=== PATIENT | female | born 1995 | race Caucasian/White ===

== ENCOUNTER 2016-11-14 20:04 | Emergency (ER) | payer BC ==
[2016-11-14] MEDS ORDERED: Aspirin Low Dose CHEW TAB* 81 MG PO ONE (20:51)
--- NOTE | 2016-11-14 21:04 | ED ---
HPI Chest Pain - HPI Summary HPI Summary: Patient is sent to ED by her PCP after CC of epigastric chest pain radiating to the back 3 days ago. PCP checked a trop level which patient stated was "elevated." PCP advised her to come to ED for further workup. Patient denies any chest pain or pressure now. Noted some previous SOB but stated she has had a cold. Denies weakness, chills, sweats or other discomfort. She denies other symptoms. Patient denies any cardiac history and only takes suboxone for previous opioid abuse. Patient is a smoker, but denies connective tissue disease. To her knowledge, has never had an echo. No-one in her family has at an early age for any reason. - History of Current Complaint Chief Complaint: EDChestPainROMI Time Seen by Provider: 11/14/16 20:50 Hx Obtained From: Patient Onset/Duration: Started Days Ago - 3 Timing: Intermittent, Lasting Minutes Initial Severity: Moderate Current Severity: None Pain Intensity: 0 Pain Scale Used: 0-10 Numeric Chest Pain Radiates: Yes Chest Pain Radiates To:: Back Character: Burning, Crushing Aggravating Factor(s): Nothing Alleviating Factor(s): Nothing Associated Signs and Symptoms: Positive: Chest Pain, Shortness of Breath, Cough - Risk Factors TAD Risk Factors: Negative - Allergy/Home Medications Allergies/Adverse Reactions: Allergies Allergy/AdvReac Type Severity Reaction Status Date / Time Acetaminophen Allergy See Comment Verified 03/08/15 12:14 [From Tylenol with Codeine #3] Clonidine Allergy Hives Verified 01/10/16 09:49 Codeine Allergy See Comment Verified 03/08/15 12:14 [From Tylenol with Codeine #3] PMH/Surg Hx/FS Hx/Imm Hx Previously Healthy: Yes Endocrine/Hematology History: Denies: Hx Diabetes, Hx Thyroid Disease Cardiovascular History: Denies: Hx Hypertension Respiratory History: Reports: Hx Asthma Denies: Hx Chronic Obstructive Pulmonary Disease (COPD) GI History: Denies: Hx Ulcer Psychiatric History: Reports: Hx Anxiety - panic attacks - Surgical History Surgery Procedure, Year, and Place: Tonsillectomy 2009 Infectious Disease History: No Infectious Disease History: Reports: Hx Shingles Denies: Hx Hepatitis, Hx Human Immunodeficiency Virus (HIV), Traveled Outside the [place] in Last 30 Days - Social History Occupation: Unemployed Lives: With Family Alcohol Use: None Substance Use Type: Reports: None, Other Substance Use Comment - Amount & Last Used: former narcotic abuser Hx Tobacco Use: Yes Smoking Status (MU): Light Every Day Tobacco Smoker Type: Cigarettes Amount Used/How Often: 1-2 daily Length of Time of Smoking/Using Tobacco: years Have You Smoked in the Last Year: Yes Review of Systems Constitutional: Negative Eyes: Negative Positive: Chest Pain - previous Positive: Shortness Of Breath - previous Gastrointestinal: Negative Positive: no symptoms reported, see HPI Musculoskeletal: Negative Neurological: Negative Psychological: Normal All Other Systems Reviewed And Are Negative: Yes Physical Exam Triage Information Reviewed: Yes Vital Signs On Initial Exam: Initial Vitals Temp Pulse Resp BP Pulse Ox 98.6 F 101 16 114/72 100 11/14/16 20:19 11/14/16 20:19 11/14/16 20:19 11/14/16 20:19 11/14/16 20:19 Vital Signs Reviewed: Yes Appearance: Positive: Well-Appearing, Well-Nourished Skin: Positive: Warm, Skin Color Reflects Adequate Perfusion Eyes: Positive: Normal Neck: Positive: Supple, No Lymphadenopathy Respiratory/Lung Sounds: Positive: Clear to Auscultation, Breath Sounds Present Cardiovascular: Positive: Normal, RRR, Pulses are Symmetrical in both Upper and Lower Extremities Abdomen Description: Positive: Nontender, No Organomegaly Musculoskeletal: Positive: Normal, Strength/ROM Intact Neurological: Positive: Normal, Sensory/Motor Intact, Speech Normal Psychiatric: Positive: Normal Diagnostics - Vital Signs Vital Signs Temp Pulse Resp BP Pulse Ox 11/14/16 20:19 98.6 F 101 16 114/72 100 - Laboratory Result Diagrams: 11/14/16 21:00 11/14/16 21:00 Lab Statement: Any lab studies that have been ordered have been reviewed, and results considered in the medical decision making process. Chest Pain Course/Dx - Course Course Of Treatment: Patient labs WNL except for Trop 0.04. Patient made aware of results. Signed out AMA. Prefers to follow up with PCP d/t feeling OK. - Chest Pain Differential Diagnosis/HQI/PQRI: ACS, Chest Wall, Pulmonary Embolism - Diagnoses Provider Diagnoses: Elevated troponin Discharge - Discharge Plan Condition: Fair Disposition: AGAINST MEDICAL ADVICE Referrals: Hawk Benitez MD [Primary Care Provider] -
[2016-11-14 21:18] LABS: Hematocrit 35 % (35-47); Hemoglobin 12.2 g/dl (12.0-16.0); Mean Corpuscular HGB Conc 34 g/dl (31-36); Mean Corpuscular Hemoglobin 31 pg (27-31); Mean Corpuscular Volume 89 fL (80-97); Mean Platelet Volume 9 um3 (7.4-10.4); Red Blood Count 3.96 10^6/ul (4.0-5.4); Red Cell Distribution Width 13 % (10.5-15)
[2016-11-14 21:36] LABS: Albumin 4.3 g/dL (3.2-5.2); Calcium 9.6 mg/dL (8.6-10.3); EGFR African American 133.4 (>60); EGFR Non-African American 103.7 (>60); Potassium 3.6 mmol/L (3.5-5.0); Total Bilirubin 0.3 mg/dL (0.2-1.0); Total Protein 7.3 g/dL (6.4-8.9)
[2016-11-14 21:39] LABS: Troponin I 0.04 ng/mL (<0.04)
[2016-11-14 21:57] LABS: TSH (Thyroid Stimulating Horm) 0.72 mcIU/mL (0.34-5.60)
[2016-11-14 22:50] VITALS: BP 120/64
== END 2016-11-14 22:50 | disposition left against medical advice (07) ==
LOC: ED 20:04
DX: R79.89 Other specified abnormal findings of blood chemistry (principal); R07.9 Chest pain, unspecified; R06.02 Shortness of breath; R05 Cough; F17.210 Nicotine dependence, cigarettes, uncomplicated
CPT/HCPCS: 36415; 80053; 82550; 82553; 83605; 83735; 83874; 83880; 84443; 84484; 85025; 85610; 85730; 93005; 99285

== ENCOUNTER 2018-04-25 19:01 | Emergency (ER) | payer BC, MEDICAID ==
[2018-04-25 19:10] VITALS: BP 126/79
[2018-04-25] MEDS ORDERED: Albuterol/Ipratropium NEB.SOL* Albuterol 2.5 MG/Ipratropium 0.5 MG 3 ML INH ONE (19:22)
[2018-04-25] MEDS ORDERED: Al Hydrox/Mg Hydrox/Simet LIQ* 30 ML UDC PO ONE (19:51)
[2018-04-25] MEDS ORDERED: Lidocaine 2% VISCOUS* 15 ML UDC SWISH SPIT ONE (19:51)
--- NOTE | 2018-04-25 20:23 | UC ---
Respiratory Complaint HPI - HPI Summary HPI Summary: Chest heaviness and subjective SOB began last night--- - History of Current Complaint Chief Complaint: UCRespiratory Stated Complaint: TROUBLE BREATHING Time Seen by Provider: 04/25/18 19:15 Hx Obtained From: Patient Hx Last Menstrual Period: IUD ?: No Onset/Duration: Sudden Onset, Lasting Days - 1, Still Present Timing: Constant Pain Intensity: 0 Alleviating Factors: Nothing Associated Signs And Symptoms: Positive: Pleuritic Chest Pain - Allergies/Home Medications Allergies/Adverse Reactions: Allergies Allergy/AdvReac Type Severity Reaction Status Date / Time acetaminophen Allergy Pain Verified 04/25/18 21:35 [From Tylenol-Codeine #3] codeine Allergy Pain Verified 04/25/18 21:35 sertraline [From Zoloft] Allergy Hives Verified 04/25/18 21:35 PMH/Surg Hx/FS Hx/Imm Hx Previously Healthy: No - opiate addiction in remission - Surgical History Surgical History: None Surgery Procedure, Year, and Place: Tonsillectomy 2008 - Family History Known Family History: Positive: None - Social History Occupation: Employed Full-time Lives: With Family Alcohol Use: None Substance Use Type: None Substance Use Comment - Amount & Last Used: former narcotic abuser Smoking Status (MU): Light Every Day Tobacco Smoker Type: Cigarettes Amount Used/How Often: 1-2 daily Length of Time of Smoking/Using Tobacco: years Have You Smoked in the Last Year: Yes Household Exposure Type: Cigarettes Cessation Counseling: Patient Advised to Stop - Immunization History Most Recent Influenza Vaccination: unknown Most Recent Tetanus Shot: 02/25/14 Most Recent Pneumonia Vaccination: none Review of Systems Constitutional: Negative Skin: Negative Eyes: Negative ENT: Negative Respiratory: Shortness Of Breath Cardiovascular: Negative, Other - chest heaviness in her lungs Gastrointestinal: Negative Genitourinary: Negative Motor: Negative Neurovascular: Negative Musculoskeletal: Negative Neurological: Negative Psychological: Negative Is Patient Immunocompromised?: No All Other Systems Reviewed And Are Negative: Yes Physical Exam Triage Information Reviewed: Yes Appearance: Well-Appearing, No Pain Distress, Well-Nourished Vital Signs: Initial Vital Signs Temp 98.8 F 04/25/18 19:07 Pulse 92 04/25/18 19:07 Resp 18 04/25/18 19:07 BP 126/79 04/25/18 19:07 Pulse Ox 100 04/25/18 19:07 Vital Signs Reviewed: Yes Eye Exam: Normal Eyes: Positive: Conjunctiva Clear ENT Exam: Normal ENT: Positive: Normal ENT inspection, Hearing grossly normal, Pharynx normal, TMs normal. Negative: Nasal congestion, Trismus, Muffled voice, Hoarse voice Dental Exam: Normal Neck exam: Normal Neck: Positive: Supple, Nontender, No Lymphadenopathy Respiratory Exam: Normal Respiratory: Positive: Chest non-tender, Lungs clear, Normal breath sounds, No respiratory distress, No accessory muscle use Cardiovascular Exam: Normal Cardiovascular: Positive: RRR, No Murmur, Pulses Normal, Brisk Capillary Refill Musculoskeletal Exam: Normal Musculoskeletal: Positive: Strength Intact, ROM Intact, No Edema Neurological Exam: Normal Neurological: Positive: Alert, Muscle Tone Normal Psychological Exam: Normal Skin Exam: Normal UC Diagnostic Evaluation - Laboratory O2 Sat by Pulse Oximetry: 100 Re-Evaluation - Re-Evaluation First Eval Change: Unchanged - no relief with neb or gi cocktail Respiratory Course/Dx - Course Course Of Treatment: d/c patient from urgent care to go to hospital at [facility] for further assessment of SOB - Differential Dx/Diagnosis Provider Diagnoses: SOB Discharge - Sign-Out/Discharge Documenting (check all that apply): Patient Departure All imaging exams completed and their final reports reviewed: No Studies - Discharge Plan Condition: Fair Disposition: HOME-RECOMMEND TO ED Patient Education Materials: Shortness of Breath (ED) Referrals: Hawk Benitez MD [Primary Care Provider] - Additional Instructions: We are discharging you from the urgent care to go to the emergency department for further care - Billing Disposition and Condition Condition: FAIR Disposition: Home-Recommend to ED
== END 2018-04-25 20:38 | disposition home health service (06) ==
LOC: UCEAST 19:01
DX: R06.02 Shortness of breath (principal); Z88.6 Allergy status to analgesic agent; Z88.5 Allergy status to narcotic agent; Z88.8 Allergy status to other drugs, medicaments and biological substances; F17.210 Nicotine dependence, cigarettes, uncomplicated
CPT/HCPCS: 99212; A9270-GY; G0463

== ENCOUNTER 2018-04-25 21:16 | Emergency (ER) | payer BC ==
[2018-04-25 21:35] VITALS: BP 126/84
== END 2018-04-25 23:48 | disposition left against medical advice (07) ==
LOC: ED 21:16
DX: R06.02 Shortness of breath (principal); Z53.21 Procedure and treatment not carried out due to patient leaving prior to being seen by health care provider
CPT/HCPCS: 99282

== ENCOUNTER 2018-07-17 11:13 | Emergency (ER) | payer BC ==
--- NOTE | 2018-07-17 11:16 | UC ---
Throat Pain/Nasal Gallo HPI - HPI Summary HPI Summary: 23 yo female presents with sore throat for the last 4 days. She tells me that it hurts to swallow and feels like it did when she used to have strep. She has not taken anything OTC for her symptoms. Denies fever, chills, cough, SOB, n/v, or rash. - History of Current Complaint Stated Complaint: SORE THROAT Time Seen by Provider: 07/17/18 11:15 Hx Obtained From: Patient Hx Last Menstrual Period: IUD Onset/Duration: Gradual Onset Severity: Mild Pain Intensity: 4 Pain Scale Used: 0-10 Numeric - Allergies/Home Medications Allergies/Adverse Reactions: Allergies Allergy/AdvReac Type Severity Reaction Status Date / Time codeine Allergy Pain Verified 07/17/18 11:19 sertraline [From Zoloft] Allergy Hives Verified 04/25/18 21:35 Home Medications: Home Medications Gabapentin CAP(*) [Neurontin 300 CAP(*)] 600 mg PO DAILY 07/17/18 [History Confirmed 07/17/18] cloNIDine HCl [Clonidine HCl ER 0.1 MG] 0.1 mg PO BID 07/17/18 [History Confirmed 07/17/18] PMH/Surg Hx/FS Hx/Imm Hx Psychological History: Anxiety, Depression, Bipolar Disorder - Surgical History Surgical History: None Surgery Procedure, Year, and Place: Tonsillectomy 2008 - Family History Known Family History: Positive: None - Social History Occupation: Employed Full-time Lives: With Family Alcohol Use: None Substance Use Type: None Substance Use Comment - Amount & Last Used: former narcotic abuser Smoking Status (MU): Light Every Day Tobacco Smoker Type: Cigarettes Amount Used/How Often: 1-2 daily Length of Time of Smoking/Using Tobacco: years Have You Smoked in the Last Year: Yes Household Exposure Type: Cigarettes - Immunization History Most Recent Influenza Vaccination: unknown Most Recent Tetanus Shot: 02/25/14 Most Recent Pneumonia Vaccination: none Review of Systems All Other Systems Reviewed And Are Negative: Yes Constitutional: Positive: Negative Skin: Positive: Negative Eyes: Positive: Negative ENT: Positive: Sore Throat Respiratory: Positive: Negative Cardiovascular: Positive: Negative Neurovascular: Positive: Negative Neurological: Positive: Negative Psychological: Positive: Negative Physical Exam - Summary Physical Exam Summary: GENERAL: NAD. WDWN. No pain distress. SKIN: No rashes, sores, lesions, or open wounds. HEENT: Head: AT/NC Eyes: EOM intact. Conjunctiva clear without inflammation or discharge. Ears: Hearing grossly normal. TMs intact, no bulging, erythema, or edema. Nose: Nasal mucosa pink and moist. NTTP maxillary and frontal sinus. Throat: Posterior oropharynx without exudates or erythema. Uvula midline. NECK: Supple. Nontender. No lymphadenopathy. CHEST: CTAB. No r/r/w. No accessory muscle use. Breathing comfortably and in no distress. CV: RRR. Without m/r/g. Pulses intact. Cap refill <2seconds NEURO: Alert. PSYCH: Age appropriate behavior. Triage Information Reviewed: Yes Vital Signs: Vital Signs: Temp Pulse Resp BP Pulse Ox 97.9 F 90 16 110/67 100 07/17/18 11:20 07/17/18 11:20 07/17/18 11:20 07/17/18 11:20 07/17/18 11:20 Laboratory Tests 07/17/18 11:31 Group A Strep Rapid Negative Vital Signs Reviewed: Yes Throat Pain/Nasal Course/Dx - Course Course Of Treatment: POC strep negative. Suspect viral pharyngitis. Advised to take tylenol/ibuprofen for discomfort and f/u prn. - Differential Dx/Diagnosis Provider Diagnoses: Viral pharyngitis Discharge - Sign-Out/Discharge Documenting (check all that apply): Patient Departure All imaging exams completed and their final reports reviewed: No Studies - Discharge Plan Condition: Stable Disposition: HOME Patient Education Materials: Pharyngitis (ED) Referrals: Hawk Benitez MD [Primary Care Provider] - Additional Instructions: If you develop a fever, shortness of breath, chest pain, new or worsening symptoms - please call your PCP or go to the ED. - Billing Disposition and Condition Condition: STABLE Disposition: Home
--- OUTSIDE RECORDS SUMMARY | 2018-07-17 11:18 | XMS REPORT ---
:1995 External Reference #:[id number] Author Organization [facility] Address [address] [place] [address] Phone [phone] Care Team Providers Name Role Phone Hawk Benitez MD Primary Care Physician Unavailable Payers Type Date Identification Numbers Payment Provider Subscriber Commercial Policy Number: [id number] [employer]ets Kun Fink PayID: [id number] [address] [address] [place] [address] Medigap Part B Expires: 2018 Policy Number: [id number] Medicaid Marie Alonso PayID: [id number] [address] [place] [address] Medigap Part B Expires: 2018 Policy Number: [id number] Medicaid Marie Alonso Group Name: 1 1 [address] PayID: [id number] [place] [address] Problems Date Description Provider Status Onset: 09/02/2016 Opioid abuse Sherie Ray M.D.FACP Onset: 11/14/2016 Light cigarette smoker (1-9 Hawk Benitez, Active cigs/day) BETHANY CoughlinP Onset: 01/27/2017 Bipolar I disorder Sherie Ray M.D., FACP Onset: 09/02/2016 Anxiety disorder Hawk Benitez, Inactive BETHANY CoughlinP Inactive: 01/27/2017 Note: bipolar suspect Onset: 10/13/2016 Hyperthyroidism Hawk Benitez M.D.,FACP Resolved Resolved: 11/16/2016 Note: suspect Family History Date Family Member(s) Problem(s) Comments : (1995) Father due to Drug Overdose Mother No Current Problems Siblings 1 First Brother premature, growth hormone def Social History Type Date Description Comments Marital Status Significant Other Lives With Boyfriend Occupation Currently Working at [employer] Cigarette Use Light tobacco smoker (10 or fewer cigarettes/day) ETOH Use 01/10/2018 Denies alcohol use Recreational Drug Use Former Drug User (+) hx heroin use; last use Jan 13 2017 Smoking Light tobacco smoker (10 or since age 12, 4-5 fewer cigarettes/day) cig/day Exercise Type/Frequency Does not exercise General Hx Text 2 children, not full custody Allergies, Adverse Reactions, Alerts Date Description Reaction Status Severity Comments 08/23/2016 Zoloft active burning and itching head to toe 08/23/2016 Codeine active chest pain Medications Medication Date Status Form Strength Qnty SIG Indications Ordering Provider Nicotrol 04/27/ Active Inhaler 10mg 168un 1 cartridges Hawk 2017 its every 2 hours Yolette Benitez, as needed M.D.,FACP Bupropion HCL 03/22/ Active Tablets ER 150mg 60tab 1 by mouth Katelyn Canseco ER (SR) 2018 12HR s once a day Yolette Benitez, for 10 days M.D.,FACP then 1 in Am and 1 in early afternoon Mirena (52 MG) 05/25/ Active IUD 20mcg/24H placed at [facility] Hawk 2016 R 11/2014? Yolette Benitez M.D.,FACP Suboxone 05/09/ Active Film 12-3mg 28uni Take 1/2 Film F11.19 Hawk 2016 ts Sublingually Yolette Benitez, Twice A Day M.D.,FACP Gabapentin 11/14/ Active Tablets 600mg 30tab take 1 tablet Hawk 2016 s by mouth at Yolette Benitez, bedtime M.D.,FACP Clonidine HCL 09/02/ Active Tablets 0.1mg 60tab take 1 tablet Katelyn Canseco 2015 s by mouth Yolette Benitez, twice a day M.D.,FACP Azithromycin 03/22/ Hx Tablets 250mg 6tabs 2 every day Hawk 2018 - for 1 day, Yolette Benitez, 03/27/ then 1 every M.D.,FACP 2018 day Neurontin 10/30/ Hx Capsules 400mg Hawk 2018 - Yolette Benitez, M.D.,FACP 2018 Suboxone 05/09/ Hx Film 12-3mg 28uni 1/2 strip sl F11.19 Hawk 2017 - ts twice a day Yolette Benitez, M.D.,FACP 2018 Zubsolv 04/24/ Hx Tablets 5.7-1.4mg 30tab 1 tab sl F11.19 Hawk 2017 - Sub s twice a day Yolette Benitez, M.D.,FACP 2017 Nicotine 02/15/ Hx Patches 21mg/24HR 28uni apply patch Hawk 2017 - 24HR ts daily, remove Yolette Benitez, 05/25/ old one at .D.,FACP 2017 the same time x's 6 wks Suboxone 10/17/ Hx Film 12-3mg 14uni 1/2 strip sl F11.19 Hawk 2017 - ts twice a day Yolette Benitez, M.D.,FACP 2017 Suboxone 10/13/ Hx Film 8-2mg 5unit 1 strip sl Hawk 2017 - s twice day Yolette Benitez, M.D.,FACP 2017 Quetiapine 10/03/ Hx Tablets 50mg 30tab take 1 tablet Hawk Conner 2016 - s by mouth at Yolette Benitez, 07/06/ bedtime as M.Suzette.,FACP 2017 needed Gabapentin 09/02/ Hx Capsules 300mg 90cap 2 tabs bid Hawk 2016 - s plus 4 qhs Yolette Benitez, M.D.,FACP 2017 No Active 08/23/ Hx Abhi Boyd Medications 2016 - Bernadette, M.D. 2016 Lexapro 08/23/ Hx Tablets 10mg 30tab 1 by mouth F41.9 Abhi Boyd 2015 - s every day Bernadette, M.D. 2015 Lamotrigine 00/ Hx Tablets 25mg 1 po qd for 2 Unknown 0000 - wks, then 2 07/05/ qd for 2 wks 2017 then 4qd Immunizations CPT Code Status Date Vaccine Reaction Lot # [id number] Given 06/29/2018 Influenza Virus Vaccine, [id number] Quadrivalent, Split, Preservative Free 30273 Given 06/29/2018 Gardasil (HPV) [id number] 16771 Given 11/29/2017 Human Papillomavirus Vaccine [id number] Types; Nonavalent [address] [place] [address] Given 07/06/2017 Gardasil (HPV) no immediate reaction, [id number] pt tolerated well 45153 Given 05/25/2017 Pneumonia Vaccine [id number] 03686 Given 05/25/2017 Influenza Virus Vaccine, [id number] Quadrivalent, Split, Preservative Free 58248 Given 10/03/2016 Influenza Virus Vaccine, [id number] Quadrivalent, Split Virus, Im Use Vital Signs Date Vital Result Comment 06/29/2018 Height 63 inches 5'3" Weight 129.00 lb Heart Rate 101 /min BP Systolic Sitting 118 mmHg BP Diastolic Sitting 62 mmHg Body Temperature 96.5 F O2 % BldC Oximetry 95 % BMI (Body Mass Index) 22.8 kg/m2 04/27/2018 Weight 125.00 lb Heart Rate 57 /min BP Systolic Sitting 120 mmHg BP Diastolic Sitting 68 mmHg Body Temperature 98.4 F O2 % BldC Oximetry 99 % 03/22/2018 Weight 120.00 lb Heart Rate 91 /min BP Systolic Sitting 108 mmHg BP Diastolic Sitting 70 mmHg Body Temperature 97.6 F O2 % BldC Oximetry 98 % 01/10/2018 Height 63 inches 5'3" Weight 119.00 lb Heart Rate 91 /min BP Systolic Sitting 110 mmHg BP Diastolic Sitting 78 mmHg Body Temperature 98.0 F O2 % BldC Oximetry 98 % BMI (Body Mass Index) 21.1 kg/m2 11/29/2017 Weight 119.00 lb Heart Rate 87 /min BP Systolic Sitting 110 mmHg BP Diastolic Sitting 58 mmHg Body Temperature 98.5 F O2 % BldC Oximetry 98 % 08/23/2017 Weight 121.00 lb Heart Rate 88 /min BP Systolic Sitting 116 mmHg BP Diastolic Sitting 66 mmHg Body Temperature 98.8 F O2 % BldC Oximetry 99 % 07/06/2017 Weight 121.00 lb Heart Rate 98 /min BP Systolic Sitting 122 mmHg BP Diastolic Sitting 66 mmHg Body Temperature 97.5 F O2 % BldC Oximetry 98 % 05/25/2017 Height 63 inches 5'3" Weight 121.00 lb Heart Rate 90 /min BP Systolic Sitting 120 mmHg BP Diastolic Sitting 60 mmHg Body Temperature 98.7 F O2 % BldC Oximetry 98 % BMI (Body Mass Index) 21.4 kg/m2 04/24/2017 Height 63 inches 5'3" Weight 128.00 lb Heart Rate 83 /min BP Systolic 118 mmHg BP Diastolic 74 mmHg Body Temperature 98.0 F O2 % BldC Oximetry 97 % BMI (Body Mass Index) 22.7 kg/m2 03/08/2017 Weight 119.25 lb Heart Rate 95 /min BP Systolic Sitting 130 mmHg BP Diastolic Sitting 60 mmHg Body Temperature 99.1 F O2 % BldC Oximetry 98 % 01/27/2017 Weight 121.00 lb Heart Rate 82 /min BP Systolic 118 mmHg BP Diastolic 62 mmHg Body Temperature 97.1 F O2 % BldC Oximetry 98 % 01/26/2017 Weight 120.00 lb Heart Rate 72 /min BP Systolic Sitting 108 mmHg BP Diastolic Sitting 64 mmHg Body Temperature 98.5 F O2 % BldC Oximetry 98 % 12/16/2016 Weight 125.00 lb Heart Rate 103 /min BP Systolic Sitting 106 mmHg BP Diastolic Sitting 68 mmHg Body Temperature 99.0 F O2 % BldC Oximetry 99 % 11/14/2016 Weight 123.25 lb Heart Rate 108 /min BP Systolic Sitting 124 mmHg BP Diastolic Sitting 78 mmHg Body Temperature 99.3 F O2 % BldC Oximetry 98 % 10/17/2016 Weight 130.25 lb Heart Rate 88 /min BP Systolic Sitting 110 mmHg BP Diastolic Sitting 70 mmHg Body Temperature 97.8 F 10/13/2016 Weight 130.25 lb Heart Rate 95 /min BP Systolic Sitting 128 mmHg BP Diastolic Sitting 72 mmHg Body Temperature 98.3 F O2 % BldC Oximetry 99 % 10/03/2016 Height 63.50 inches 5'3.50" Weight 126.00 lb Heart Rate 92 /min BP Systolic Sitting 124 mmHg BP Diastolic Sitting 82 mmHg Body Temperature 97.1 F O2 % BldC Oximetry 97 % BMI (Body Mass Index) 22.0 kg/m2 09/02/2016 Weight 124.00 lb Heart Rate 82 /min BP Systolic Sitting 116 mmHg BP Diastolic Sitting 74 mmHg Body Temperature 98.4 F O2 % BldC Oximetry 97 % 08/23/2016 Height 63.50 inches 5'3.50" Weight 122.38 lb Heart Rate 94 /min BP Systolic 130 mmHg BP Diastolic 74 mmHg Body Temperature 98.0 F O2 % BldC Oximetry 98 % BMI (Body Mass Index) 21.3 kg/m2 Results Test Date Test Result H/L Range Note Urine Drug Screen Inhouse 06/29/2018 Amphetamine Confirm Urine neg 12 Urine Buprenorphine Conf QN pos Urine Benzodiazepines neg Urine Cocaine Random QL neg Urine Eddp QL neg Urine Methamphetamine QL Confm neg Urine Mdma QL Screen Method neg Urine Morphine QL GCMS neg Urine Methadone neg Confirm Opiate Urine neg Urine Oxycodone neg Urine PCP Phencyclidine QL neg Urine Tricyclc Antidepress RND neg Urine THC Confirmation neg Urine Barbiturates QN Confirm neg Drug Abuse 20 Urine 03/22/2018 Urine Amphetamine Negative ng/mL 1 Urine Barbiturates Negative ng/mL 2 Urine Benzodiazepines Negative ng/mL 3 Urine Cocaine Negative ng/mL 4 Urine Phencyclidine Negative ng/mL Cutoff: 25 Urine Tetrahydrocannabinol Negative ng/mL Cutoff: 50 5 Creatinine, Urine 178.6 mg/dL Specific [place] 1.014 pH 6.5 Oxidants Negative 6 Adulterants Comment Normal Codeine, Ur Not Detected ng/mL Cutoff: 25 7 Jxhzwun-7-rcov-glucuronide, Ur Not Detected ng/mL 8 Morphine, Ur Not Detected ng/mL Cutoff: 25 9 Djxkhbra-7-agtn-glucuronide, U Not Detected ng/mL 10 6-monoacetylmorphine, Ur Not Detected ng/mL Cutoff: 25 11 Hydrocodone, Ur Not Detected ng/mL Cutoff: 25 12 Norhydrocodone, Ur Not Detected ng/mL Cutoff: 25 13 Dihydrocodeine, Ur Not Detected ng/mL Cutoff: 25 14 Hydromorphone, Ur Not Detected ng/mL Cutoff: 25 15 Ybflszgcvnbak9wfhwnxbxukmfqxy Not Detected ng/mL 16 Oxycodone, Ur Not Detected ng/mL Cutoff: 25 17 Noroxycodone, Ur Not Detected ng/mL Cutoff: 25 18 Oxymorphone, Ur Not Detected ng/mL Cutoff: 25 19 Zptlsgkftfl-2-dnzs-glucuronide Not Detected ng/mL 20 Noroxymorphone, Ur Present ng/mL Cutoff: 25 21 Fentanyl, Ur Not Detected ng/mL Cutoff: 2 22 Norfentanyl, Ur See Comment ng/mL Cutoff: 2 23 Meperidine, Ur Not Detected ng/mL Cutoff: 25 24 Normeperidine, Ur Not Detected ng/mL Cutoff: 25 25 Naloxone, Ur Not Detected ng/mL Cutoff: 25 26 Wxstlmoy-7-pxcl-glucuronide, U Present ng/mL 27 Methadone, Ur Not Detected ng/mL Cutoff: 25 28 Eddp, Ur Not Detected ng/mL Cutoff: 25 29 Propoxyphene, Ur Not Detected ng/mL Cutoff: 25 30 Norpropoxyphene, Ur Not Detected ng/mL Cutoff: 25 31 Tramadol, Ur Not Detected ng/mL Cutoff: 25 32 O-desmethyltramadol, Ur Not Detected ng/mL Cutoff: 25 33 Tapentadol, Ur Not Detected ng/mL Cutoff: 25 34 N-desmethyltapentadol, Ur Not Detected ng/mL Cutoff: 50 35 Rzqhgonaxk-pflz-phfovdwykqz, U Not Detected ng/mL 36 Buprenorphine, Ur Present ng/mL Cutoff: 5 37 Norbuprenorphine, Ur Present ng/mL Cutoff: 5 38 Norbuprenorphine glucuronide Present ng/mL Cutoff: 20 39 Opioid Interpretation See Comment 40 Drug Abuse 20 Urine 01/10/2018 Urine Amphetamine Negative ng/mL 41 Urine Barbiturates Negative ng/mL 42 Urine Benzodiazepines Negative ng/mL 43 Urine Cocaine Negative ng/mL 44 Urine Phencyclidine Negative ng/mL Cutoff: 25 Urine Tetrahydrocannabinol Negative ng/mL Cutoff: 50 45 Creatinine, Urine 135.0 mg/dL Specific [place] 1.012 pH 7.2 Oxidants Negative 46 Adulterants Comment Normal Codeine, Ur Not Detected ng/mL Cutoff: 25 47 Fcjzzmo-5-oeqo-glucuronide, Ur Not Detected ng/mL 48 Morphine, Ur Not Detected ng/mL Cutoff: 25 49 Ivmbvqwj-6-ebac-glucuronide, U Not Detected ng/mL 50 6-monoacetylmorphine, Ur Not Detected ng/mL Cutoff: 25 51 Hydrocodone, Ur Not Detected ng/mL Cutoff: 25 52 Norhydrocodone, Ur Not Detected ng/mL Cutoff: 25 53 Dihydrocodeine, Ur Not Detected ng/mL Cutoff: 25 54 Hydromorphone, Ur Not Detected ng/mL Cutoff: 25 55 Tdnzdexleztcq5paaeflwoeknkhtv Not Detected ng/mL 56 Oxycodone, Ur Not Detected ng/mL Cutoff: 25 57 Noroxycodone, Ur Not Detected ng/mL Cutoff: 25 58 Oxymorphone, Ur Not Detected ng/mL Cutoff: 25 59 Pmcfzztmmlw-7-maro-glucuronide Not Detected ng/mL 60 Noroxymorphone, Ur Present ng/mL Cutoff: 25 61 Fentanyl, Ur Not Detected ng/mL Cutoff: 2 62 Norfentanyl, Ur Not Detected ng/mL Cutoff: 2 63 Meperidine, Ur Not Detected ng/mL Cutoff: 25 64 Normeperidine, Ur Not Detected ng/mL Cutoff: 25 65 Naloxone, Ur Not Detected ng/mL Cutoff: 25 66 Ymxucxpt-1-fiim-glucuronide, U Present ng/mL 67 Methadone, Ur Not Detected ng/mL Cutoff: 25 68 Eddp, Ur Not Detected ng/mL Cutoff: 25 69 Propoxyphene, Ur Not Detected ng/mL Cutoff: 25 70 Norpropoxyphene, Ur Not Detected ng/mL Cutoff: 25 71 Tramadol, Ur Not Detected ng/mL Cutoff: 25 72 O-desmethyltramadol, Ur Not Detected ng/mL Cutoff: 25 73 Tapentadol, Ur Not Detected ng/mL Cutoff: 25 74 N-desmethyltapentadol, Ur Not Detected ng/mL Cutoff: 50 75 Pztnmxtmxr-wiia-ntzmjjnhtzs, U Not Detected ng/mL 76 Buprenorphine, Ur Not Detected ng/mL Cutoff: 5 77 Norbuprenorphine, Ur Present ng/mL Cutoff: 5 78 Norbuprenorphine glucuronide Present ng/mL Cutoff: 20 79 Opioid Interpretation See Comment 80 Drug Abuse 20 Urine 11/29/2017 Urine Amphetamine Negative ng/mL 81 Urine Barbiturates Negative ng/mL 82 Urine Benzodiazepines Negative ng/mL 83 Urine Cocaine Negative ng/mL 84 Urine Phencyclidine Negative ng/mL Cutoff: 25 Urine Tetrahydrocannabinol Negative ng/mL Cutoff: 50 85 Creatinine, Urine 35.0 mg/dL Specific [place] 1.004 pH 7.5 Oxidants Negative 86 Adulterants Comment Normal Codeine, Ur Not Detected ng/mL Cutoff: 25 87 Hmmgfal-3-eipk-glucuronide, Ur Not Detected ng/mL 88 Morphine, Ur Not Detected ng/mL Cutoff: 25 89 Bgsfpscj-0-vhdk-glucuronide, U Not Detected ng/mL 90 6-monoacetylmorphine, Ur Not Detected ng/mL Cutoff: 25 91 Hydrocodone, Ur Not Detected ng/mL Cutoff: 25 92 Norhydrocodone, Ur Not Detected ng/mL Cutoff: 25 93 Dihydrocodeine, Ur Not Detected ng/mL Cutoff: 25 94 Hydromorphone, Ur Not Detected ng/mL Cutoff: 25 95 Wkkoxpxfczpfd2dbusoihedtjhjcw Not Detected ng/mL 96 Oxycodone, Ur Not Detected ng/mL Cutoff: 25 97 Noroxycodone, Ur Not Detected ng/mL Cutoff: 25 98 Oxymorphone, Ur Not Detected ng/mL Cutoff: 25 99 Yxfsadvmetz-5-wpay-glucuronide Not Detected ng/mL 100 Noroxymorphone, Ur Not Detected ng/mL Cutoff: 25 101 Fentanyl, Ur Not Detected ng/mL Cutoff: 2 102 Norfentanyl, Ur Not Detected ng/mL Cutoff: 2 103 Meperidine, Ur Not Detected ng/mL Cutoff: 25 104 Normeperidine, Ur Not Detected ng/mL Cutoff: 25 105 Naloxone, Ur Not Detected ng/mL Cutoff: 25 106 Cqblambj-9-iuka-glucuronide, U Not Detected ng/mL 107 Methadone, Ur Not Detected ng/mL Cutoff: 25 108 Eddp, Ur Not Detected ng/mL Cutoff: 25 109 Propoxyphene, Ur Not Detected ng/mL Cutoff: 25 110 Norpropoxyphene, Ur Not Detected ng/mL Cutoff: 25 111 Tramadol, Ur Not Detected ng/mL Cutoff: 25 112 O-desmethyltramadol, Ur Not Detected ng/mL Cutoff: 25 113 Tapentadol, Ur Not Detected ng/mL Cutoff: 25 114 N-desmethyltapentadol, Ur Not Detected ng/mL Cutoff: 50 115 Etpesmbeem-ztgn-hcoqfvcluqz, U Not Detected ng/mL 116 Buprenorphine, Ur Not Detected ng/mL Cutoff: 5 117 Norbuprenorphine, Ur Present ng/mL Cutoff: 5 118 Norbuprenorphine glucuronide Present ng/mL Cutoff: 20 119 Opioid Interpretation See Comment 120 Drug Abuse 20 Urine 08/23/2017 Urine Amphetamine Negative ng/mL 121 Urine Barbiturates Negative ng/mL 122 Urine Benzodiazepines Negative ng/mL 123 Urine Cocaine Negative ng/mL 124 Urine Phencyclidine Negative ng/mL Cutoff: 25 Urine Tetrahydrocannabinol Negative ng/mL Cutoff: 50 125 Creatinine, Urine 18.6 mg/dL Specific [place] 1.004 pH 7.4 Oxidants Negative 126 Adulterants Comment Normal Codeine, Ur Not Detected ng/mL Cutoff: 25 127 Pvnelxw-3-yplk-glucuronide, Ur Not Detected ng/mL 128 Morphine, Ur Not Detected ng/mL Cutoff: 25 129 Lyoaxxdo-2-mdkd-glucuronide, U Not Detected ng/mL 130 6-monoacetylmorphine, Ur Not Detected ng/mL Cutoff: 25 131 Hydrocodone, Ur Not Detected ng/mL Cutoff: 25 132 Norhydrocodone, Ur Not Detected ng/mL Cutoff: 25 133 Dihydrocodeine, Ur Not Detected ng/mL Cutoff: 25 134 Hydromorphone, Ur Not Detected ng/mL Cutoff: 25 135 Piiilcnqqnqhm7guvuahqdtqhjjkn Not Detected ng/mL 136 Oxycodone, Ur Not Detected ng/mL Cutoff: 25 137 Noroxycodone, Ur Not Detected ng/mL Cutoff: 25 138 Oxymorphone, Ur Not Detected ng/mL Cutoff: 25 139 Jxnaupvnozl-4-vxkn-glucuronide Not Detected ng/mL 140 Noroxymorphone, Ur Not Detected ng/mL Cutoff: 25 141 Fentanyl, Ur Not Detected ng/mL Cutoff: 2 142 Norfentanyl, Ur Not Detected ng/mL Cutoff: 2 143 Meperidine, Ur Not Detected ng/mL Cutoff: 25 144 Normeperidine, Ur Not Detected ng/mL Cutoff: 25 145 Naloxone, Ur Not Detected ng/mL Cutoff: 25 146 Kspvwryz-8-umqh-glucuronide, U Present ng/mL 147 Methadone, Ur Not Detected ng/mL Cutoff: 25 148 Eddp, Ur Not Detected ng/mL Cutoff: 25 149 Propoxyphene, Ur Not Detected ng/mL Cutoff: 25 150 Norpropoxyphene, Ur Not Detected ng/mL Cutoff: 25 151 Tramadol, Ur Not Detected ng/mL Cutoff: 25 152 O-desmethyltramadol, Ur Not Detected ng/mL Cutoff: 25 153 Tapentadol, Ur Not Detected ng/mL Cutoff: 25 154 N-desmethyltapentadol, Ur Not Detected ng/mL Cutoff: 50 155 Hmcfatczfm-gxvf-lkusivirklq, U Not Detected ng/mL 156 Buprenorphine, Ur Not Detected ng/mL Cutoff: 5 157 Norbuprenorphine, Ur Present ng/mL Cutoff: 5 158 Norbuprenorphine glucuronide Present ng/mL Cutoff: 20 159 Opioid Interpretation See Comment 160 Laboratory test 05/25/2017 Cytology SEE RESULT BELOW 161 finding GC/Chlamydia 05/25/2017 Chlamydia trachomatis Negative Negative Amplified Rna Rna Neisseria gonorrhoeae (GC) Rna Negative Negative Drug Abuse 20 Urine 04/24/2017 Urine Amphetamine Negative ng/mL 162 Urine Barbiturates Negative ng/mL 163 Urine Benzodiazepines Negative ng/mL 164 Urine Cocaine Negative ng/mL 165 Urine Phencyclidine Negative ng/mL Cutoff: 25 Urine Tetrahydrocannabinol Negative ng/mL Cutoff: 50 166 Creatinine, Urine 29.1 mg/dL Specific [place] 1.004 pH 6.0 Oxidants Negative 167 Adulterants Comment Normal Codeine, Ur Not Detected ng/mL Cutoff: 25 168 Bkezxbw-8-bqxt-glucuronide, Ur Not Detected ng/mL 169 Morphine, Ur Not Detected ng/mL Cutoff: 25 170 Fnehdmjv-4-mhgy-glucuronide, U Not Detected ng/mL 171 6-monoacetylmorphine, Ur Not Detected ng/mL Cutoff: 25 172 Hydrocodone, Ur Not Detected ng/mL Cutoff: 25 173 Norhydrocodone, Ur Not Detected ng/mL Cutoff: 25 174 Dihydrocodeine, Ur Not Detected ng/mL Cutoff: 25 175 Hydromorphone, Ur Not Detected ng/mL Cutoff: 25 176 Qzgxsqlkkwfho4emgpwoadalpwzxq Not Detected ng/mL 177 Oxycodone, Ur Not Detected ng/mL Cutoff: 25 178 Noroxycodone, Ur Not Detected ng/mL Cutoff: 25 179 Oxymorphone, Ur Not Detected ng/mL Cutoff: 25 180 Xutxlczojlp-8-kfjl-glucuronide Not Detected ng/mL 181 Noroxymorphone, Ur Not Detected ng/mL Cutoff: 25 182 Fentanyl, Ur Not Detected ng/mL Cutoff: 2 183 Norfentanyl, Ur Not Detected ng/mL Cutoff: 2 184 Meperidine, Ur Not Detected ng/mL Cutoff: 25 185 Normeperidine, Ur Not Detected ng/mL Cutoff: 25 186 Naloxone, Ur Not Detected ng/mL Cutoff: 25 187 Ylwaldda-4-eexy-glucuronide, U Present ng/mL 188 Methadone, Ur Not Detected ng/mL Cutoff: 25 189 Eddp, Ur Not Detected ng/mL Cutoff: 25 190 Propoxyphene, Ur Not Detected ng/mL Cutoff: 25 191 Norpropoxyphene, Ur Not Detected ng/mL Cutoff: 25 192 Tramadol, Ur Not Detected ng/mL Cutoff: 25 193 O-desmethyltramadol, Ur Not Detected ng/mL Cutoff: 25 194 Tapentadol, Ur Not Detected ng/mL Cutoff: 25 195 N-desmethyltapentadol, Ur Not Detected ng/mL Cutoff: 50 196 Mymxtyrvts-kmjr-jhhbginzdkz, U Not Detected ng/mL 197 Buprenorphine, Ur Present ng/mL Cutoff: 5 198 Norbuprenorphine, Ur Present ng/mL Cutoff: 5 199 Norbuprenorphine glucuronide Present ng/mL Cutoff: 20 200 Opioid Interpretation See Comment 201 Drug Abuse 20 Urine 01/26/2017 Urine Amphetamine Negative ng/mL 202 Urine Barbiturates Negative ng/mL 203 Urine Benzodiazepines Negative ng/mL 204 Urine Cocaine Negative ng/mL 205 Urine Phencyclidine Negative ng/mL Cutoff: 25 Urine Tetrahydrocannabinol Presumptive Posi <SEE NOTE> ng/mL Cutoff: 50 206 Creatinine 160.3 mg/dL Specific [place] 1.015 pH 5.9 Oxidants Negative 207 Adulterants Comment Normal Codeine, Ur Not Detected ng/mL Cutoff: 25 208 Cozpzgx-2-wrlp-glucuronide, Ur Not Detected ng/mL 209 Morphine, Ur Not Detected ng/mL Cutoff: 25 210 Vucwrvfm-6-xqqf-glucuronide, U Not Detected ng/mL 211 6-monoacetylmorphine, Ur See Comment ng/mL Cutoff: 25 212 Hydrocodone, Ur Not Detected ng/mL Cutoff: 25 213 Norhydrocodone, Ur Not Detected ng/mL Cutoff: 25 214 Dihydrocodeine, Ur Not Detected ng/mL Cutoff: 25 215 Hydromorphone, Ur Not Detected ng/mL Cutoff: 25 216 Lozkcdkuhfgdw9vmxbaaihrrfcqmh Not Detected ng/mL 217 Oxycodone, Ur Not Detected ng/mL Cutoff: 25 218 Noroxycodone, Ur Not Detected ng/mL Cutoff: 25 219 Oxymorphone, Ur Not Detected ng/mL Cutoff: 25 220 Ahldjowwzui-4-dqmd-glucuronide Not Detected ng/mL 221 Noroxymorphone, Ur Not Detected ng/mL Cutoff: 25 222 Fentanyl, Ur Not Detected ng/mL Cutoff: 2 223 Norfentanyl, Ur Not Detected ng/mL Cutoff: 2 224 Meperidine, Ur Not Detected ng/mL Cutoff: 25 225 Normeperidine, Ur Not Detected ng/mL Cutoff: 25 226 Naloxone, Ur Not Detected ng/mL Cutoff: 25 227 Vatoawwf-7-misx-glucuronide, U Present ng/mL 228 Methadone, Ur Not Detected ng/mL Cutoff: 25 229 Eddp, Ur Not Detected ng/mL Cutoff: 25 230 Propoxyphene, Ur Not Detected ng/mL Cutoff: 25 231 Norpropoxyphene, Ur Not Detected ng/mL Cutoff: 25 232 Tramadol, Ur Not Detected ng/mL Cutoff: 25 233 O-desmethyltramadol, Ur Not Detected ng/mL Cutoff: 25 234 Tapentadol, Ur Not Detected ng/mL Cutoff: 25 235 N-desmethyltapentadol, Ur Not Detected ng/mL Cutoff: 50 236 Oowxarrfwf-etci-evbnduiavqf, U Not Detected ng/mL 237 Buprenorphine, Ur Not Detected ng/mL Cutoff: 5 238 Norbuprenorphine, Ur Present ng/mL Cutoff: 5 239 Norbuprenorphine glucuronide Present ng/mL Cutoff: 20 240 Opioid Interpretation See Comment 241 THC Confirmation Urine 01/26/2017 Urine Carboxy THC Confirm 176 ng/mL 242 Urine THC Interpretation Positive. 243 Urine Culture And 12/16/2016 Urine Culture SEE RESULT BELOW 244, 245 Sensitivities THC Confirmation Urine 12/16/2016 Urine Carboxy THC 150 ng/mL 244, 246 Confirm Urine THC Interpretation Positive. 244, 247 Urinalysis Profile 12/16/2016 Urine Color Yellow 244 Urine Appearance Clear 244 Urine Specific [place] 1.006 Low 1.010-1.030 244 Urine pH 6.0 5-9 244 Urine Urobilinogen Negative Negative 244 Urine Ketones Negative Negative 244 Urine Protein Negative Negative 244 Urine Leukocytes Trace Negative 244 Urine Blood Negative Negative 244 Urine Nitrite Negative Negative 244 Urine Bilirubin Negative Negative 244 Urine Glucose Negative Negative 244 Urine White Blood Cell Trace(0-5/hpf) Absent 244 Urine Red Blood Cell Trace(0-2/hpf) Absent 244 Urine Bacteria Absent Absent 244 Urine Squamous Epithelial Cell Present Absent 244 Drug Abuse 20 Urine 12/16/2016 Urine Amphetamine Negative ng/mL 244, 248 Urine Barbiturates Negative ng/mL 244, 249 Urine Benzodiazepines Negative ng/mL 244, 250 Urine Cocaine Negative ng/mL 244, 251 Urine Phencyclidine Negative ng/mL Cutoff: 25 244 Urine Tetrahydrocannabinol Presumptive Posi <SEE NOTE> Cutoff: 50 244, 252 ng/mL Creatinine 36.6 mg/dL 244 Specific [place] 1.004 244 pH 6.2 244 Oxidants Negative 244, 253 Adulterants Comment Normal 244 Codeine, Ur Not Detected ng/mL Cutoff: 25 244, 254 Wmkfkei-8-sycu-glucuronide, Ur Not Detected ng/mL 244, 255 Morphine, Ur Not Detected ng/mL Cutoff: 25 244, 256 Iwweijoo-7-tyqy-glucuronide, U Not Detected ng/mL 244, 257 6-monoacetylmorphine, Ur Not Detected ng/mL Cutoff: 25 244, 258 Hydrocodone, Ur Not Detected ng/mL Cutoff: 25 244, 259 Norhydrocodone, Ur Not Detected ng/mL Cutoff: 25 244, 260 Dihydrocodeine, Ur Not Detected ng/mL Cutoff: 25 244, 261 Hydromorphone, Ur Not Detected ng/mL Cutoff: 25 244, 262 Khtdiucgxhjcg6zubyzzhxjcgowrv Not Detected ng/mL 244, 263 Oxycodone, Ur Not Detected ng/mL Cutoff: 25 244, 264 Noroxycodone, Ur Not Detected ng/mL Cutoff: 25 244, 265 Oxymorphone, Ur Not Detected ng/mL Cutoff: 25 244, 266 Jluxidcwotj-5-xsxh-glucuronide Not Detected ng/mL 244, 267 Noroxymorphone, Ur Not Detected ng/mL Cutoff: 25 244, 268 Fentanyl, Ur Not Detected ng/mL Cutoff: 2 244, 269 Norfentanyl, Ur Not Detected ng/mL Cutoff: 2 244, 270 Meperidine, Ur Not Detected ng/mL Cutoff: 25 244, 271 Normeperidine, Ur Not Detected ng/mL Cutoff: 25 244, 272 Naloxone, Ur Not Detected ng/mL Cutoff: 25 244, 273 Amlbabzg-9-eybi-glucuronide, U Present ng/mL 244, 274 Methadone, Ur Not Detected ng/mL Cutoff: 25 244, 275 Eddp, Ur Not Detected ng/mL Cutoff: 25 244, 276 Propoxyphene, Ur Not Detected ng/mL Cutoff: 25 244, 277 Norpropoxyphene, Ur Not Detected ng/mL Cutoff: 25 244, 278 Tramadol, Ur Not Detected ng/mL Cutoff: 25 244, 279 O-desmethyltramadol, Ur Not Detected ng/mL Cutoff: 25 244, 280 Tapentadol, Ur Not Detected ng/mL Cutoff: 25 244, 281 N-desmethyltapentadol, Ur Not Detected ng/mL Cutoff: 50 244, 282 Xkvkskjmse-hund-ewsuenyrepe, U Not Detected ng/mL 244, 283 Buprenorphine, Ur Not Detected ng/mL Cutoff: 5 244, 284 Norbuprenorphine, Ur Present ng/mL Cutoff: 5 244, 285 Norbuprenorphine glucuronide Present ng/mL Cutoff: 20 244, 286 Opioid Interpretation See Comment 244, 287 Laboratory test finding 11/14/2016 TSH (Thyroid Stim Horm) 0.66 mcIU/mL 0.34-5.60 Thyroxine 8.26 ?g/dL 6.09-12.23 T3 Total 1.38 ng/mL 0.87-1.78 Thyroperoxidase AB 0.59 IU/mL <9 Thyroid Stimulating Igg (Tsi) <1.0 TSIindex <=1.3 288 CBC Auto Diff 11/14/2016 White Blood Count 8.8 10^3/uL 3.5-10.8 Red Blood Count 4.16 10^6/uL 4.0-5.4 Hemoglobin 12.8 g/dL 12.0-16.0 Hematocrit 38 % 35-47 Mean Corpuscular Volume 90 fL 80-97 Mean Corpuscular Hemoglobin 31 pg 27-31 Mean Corpuscular HGB Conc 34 g/dL 31-36 Red Cell Distribution Width 13 % 10.5-15 Platelet Count 242 10^3/uL 150-450 Mean Platelet Volume 9 um3 7.4-10.4 Abs Neutrophils 4.8 10^3/uL 1.5-7.7 Abs Lymphocytes 3.0 10^3/uL 1.0-4.8 Abs Monocytes 0.6 10^3/uL 0-0.8 Abs Eosinophils 0.2 10^3/uL 0-0.6 Abs Basophils 0.1 10^3/uL 0-0.2 Abs Nucleated RBC 0 10^3/uL Granulocyte % 54.9 % 38-83 Lymphocyte % 34.6 % 25-47 Monocyte % 7.0 % 1-9 Eosinophil % 2.7 % 0-6 Basophil % 0.8 % 0-2 Nucleated Red Blood Cells % 0 Comp Metabolic Panel 11/14/2016 Sodium 139 mmol/L 133-145 Potassium 3.9 mmol/L 3.5-5.0 Chloride 103 mmol/L 101-111 Co2 Carbon Dioxide 30 mmol/L 22-32 Anion Gap 6 mmol/L 2-11 Glucose 93 mg/dL 70-100 Blood Urea Nitrogen 12 mg/dL 6-24 Creatinine 0.74 mg/dL 0.51-0.95 BUN/Creatinine Ratio 16.2 8-20 Calcium 9.9 mg/dL 8.6-10.3 Total Protein 7.3 g/dL 6.4-8.9 Albumin 4.6 g/dL 3.2-5.2 Globulin 2.7 g/dL 2-4 Albumin/Globulin Ratio 1.7 1-3 Total Bilirubin 0.40 mg/dL 0.2-1.0 Alkaline Phosphatase 56 U/L 34-104 Alt 9 U/L 7-52 Ast 16 U/L 13-39 Egfr Non- 97.3 >60 Egfr 125.1 >60 289 Laboratory test 11/14/2016 D Dimer Quantitative < 200 ng/mL Less Than 230 290 finding Troponin-I (TnI) 0.05 ng/mL High <0.04 291 Drug Abuse 20 Urine 10/13/2016 Urine Amphetamine Negative ng/mL 292 Urine Barbiturates Negative ng/mL 293 Urine Benzodiazepines Negative ng/mL 294 Urine Cocaine Negative ng/mL 295 Urine Phencyclidine Negative ng/mL Cutoff: 25 Urine Tetrahydrocannabinol Presumptive Posi <SEE NOTE> ng/mL Cutoff: 50 296 Creatinine 104.4 mg/dL Specific [place] 1.014 pH 7.3 Oxidants Negative 297 Adulterants Comment Normal Codeine, Ur Not Detected ng/mL Cutoff: 25 298 Vmjiova-1-skxy-glucuronide, Ur Not Detected ng/mL 299 Morphine, Ur Not Detected ng/mL Cutoff: 25 300 Bfgleurx-6-lnne-glucuronide, U Present ng/mL 301 6-monoacetylmorphine, Ur Not Detected ng/mL Cutoff: 25 302 Hydrocodone, Ur Not Detected ng/mL Cutoff: 25 303 Norhydrocodone, Ur Not Detected ng/mL Cutoff: 25 304 Dihydrocodeine, Ur Not Detected ng/mL Cutoff: 25 305 Hydromorphone, Ur Not Detected ng/mL Cutoff: 25 306 Pwafnyeiskygg9uottxfamqctodld Not Detected ng/mL 307 Oxycodone, Ur Not Detected ng/mL Cutoff: 25 308 Noroxycodone, Ur Not Detected ng/mL Cutoff: 25 309 Oxymorphone, Ur Not Detected ng/mL Cutoff: 25 310 Regbssilqxc-2-lvxx-glucuronide Not Detected ng/mL 311 Noroxymorphone, Ur Not Detected ng/mL Cutoff: 25 312 Fentanyl, Ur Not Detected ng/mL Cutoff: 2 313 Norfentanyl, Ur Present ng/mL Cutoff: 2 314 Meperidine, Ur Not Detected ng/mL Cutoff: 25 315 Normeperidine, Ur Not Detected ng/mL Cutoff: 25 316 Naloxone, Ur Not Detected ng/mL Cutoff: 25 317 Mxvkvhrw-1-wrff-glucuronide, U Not Detected ng/mL 318 Methadone, Ur Not Detected ng/mL Cutoff: 25 319 Eddp, Ur Not Detected ng/mL Cutoff: 25 320 Propoxyphene, Ur Not Detected ng/mL Cutoff: 25 321 Norpropoxyphene, Ur Not Detected ng/mL Cutoff: 25 322 Tramadol, Ur Not Detected ng/mL Cutoff: 25 323 O-desmethyltramadol, Ur Not Detected ng/mL Cutoff: 25 324 Tapentadol, Ur Not Detected ng/mL Cutoff: 25 325 N-desmethyltapentadol, Ur Not Detected ng/mL Cutoff: 50 326 Qxlctdcrav-fmbu-tfvsaalwtua, U Not Detected ng/mL 327 Buprenorphine, Ur Not Detected ng/mL Cutoff: 5 328 Norbuprenorphine, Ur Not Detected ng/mL Cutoff: 5 329 Norbuprenorphine glucuronide Not Detected ng/mL Cutoff: 20 330 Opioid Interpretation See Comment 331 THC Confirmation Urine 10/13/2016 Urine Carboxy THC Confirm 286 ng/mL 332 Urine THC Interpretation Positive. 333 Laboratory test finding 10/13/2016 TSH (Thyroid Stim 0.26 mcIU/mL Low 0.34 -5.60 Horm) CBC Auto Diff 10/13/2016 White Blood Count 9.6 10^3/uL 3.5-10.8 Red Blood Count 4.31 10^6/uL 4.0-5.4 Hemoglobin 13.1 g/dL 12.0-16.0 Hematocrit 39 % 35-47 Mean Corpuscular Volume 90 fL 80-97 Mean Corpuscular Hemoglobin 30 pg 27-31 Mean Corpuscular HGB Conc 34 g/dL 31-36 Red Cell Distribution Width 14 % 10.5-15 Platelet Count 221 10^3/uL 150-450 Mean Platelet Volume 9 um3 7.4-10.4 Abs Neutrophils 5.1 10^3/uL 1.5-7.7 Abs Lymphocytes 3.7 10^3/uL 1.0-4.8 Abs Monocytes 0.5 10^3/uL 0-0.8 Abs Eosinophils 0.2 10^3/uL 0-0.6 Abs Basophils 0.1 10^3/uL 0-0.2 Abs Nucleated RBC 0 10^3/uL Granulocyte % 53.4 % 38-83 Lymphocyte % 38.5 % 25-47 Monocyte % 5.5 % 1-9 Eosinophil % 2.0 % 0-6 Basophil % 0.6 % 0-2 Nucleated Red Blood Cells % 0 Comp Metabolic Panel 10/13/2016 Sodium 139 mmol/L 133-145 Potassium 4.5 mmol/L 3.5-5.0 Chloride 105 mmol/L 101-111 Co2 Carbon Dioxide 31 mmol/L 22-32 Anion Gap 3 mmol/L 2-11 Glucose 73 mg/dL 70-100 Blood Urea Nitrogen 13 mg/dL 6-24 Creatinine 0.67 mg/dL 0.51-0.95 BUN/Creatinine Ratio 19.4 8-20 Calcium 9.7 mg/dL 8.6-10.3 Total Protein 7.2 g/dL 6.4-8.9 Albumin 4.6 g/dL 3.2-5.2 Globulin 2.6 g/dL 2-4 Albumin/Globulin Ratio 1.8 1-3 Total Bilirubin 0.30 mg/dL 0.2-1.0 Alkaline Phosphatase 60 U/L 34-104 Alt 9 U/L 7-52 Ast 13 U/L 13-39 Egfr Non- 109.1 >60 Egfr 140.3 >60 334 Iron & Iron Binding Capacity 10/13/2016 Iron 55 g/dL 50-212 Unsaturated Iron Binding 285 g/dL Total Iron Binding Capacity 340 g/dL 250-450 % Iron Saturation 16 % 15-55 Laboratory test finding 10/13/2016 Ferritin 60.3 ng/mL 11-307 1 REFERENCE VALUE Cutoff: 500 2 REFERENCE VALUE Cutoff: 200 3 REFERENCE VALUE Cutoff: 100 4 REFERENCE VALUE Cutoff: 150 5 ADDITIONAL INFORMATION This report is intended for use in clinical monitoring or management of patients. It is not intended for use in employment-related testing. 6 REFERENCE VALUE Cutoff: 200 mg/L 7 Tylenol 3 8 Metabolite of codeine REFERENCE VALUE Cutoff: 100 9 Ledy Smiley, Contin; Also a minor metabolite (10%) of codeine and can be seen in low concentrations (<2,000 ng/mL) with poppy seed ingestion. 10 Metabolite of morphine REFERENCE VALUE Cutoff: 100 11 Metabolite of heroin 12 Lortab, [place], Vicodin; Also a very minor metabolite of codeine and impurity (<1%) of oxycodone. 13 Metabolite of hydrocodone 14 Metabolite of hydrocodone 15 Dilaudid, Exalgo; Also a metabolite of hydrocodone and a minor (<5%) metabolite of morphine. 16 Metabolite of hydromorphone REFERENCE VALUE Cutoff: 100 17 Endocet, Percocet, Oxycontin 18 Metabolite of oxycodone 19 Numorphan, Opana; Also a metabolite of oxycodone. 20 Metabolite of oxymorphone REFERENCE VALUE Cutoff: 100 21 Metabolite of oxymorphone 22 Actiq, Duragesic, Fentora 23 Unknown interfering substance present; unable to obtain results. 24 Demerol 25 Metabolite of meperidine 26 Narcan 27 Metabolite of naloxone REFERENCE VALUE Cutoff: 100 28 Dolophine 29 Metabolite of methadone 30 Darvon, Darvocet 31 Metabolite of propoxyphene 32 Tradol, Ultram, Ultracet 33 Metabolite of tramadol 34 Nucynta 35 Metabolite of tapentadol 36 Metabolite of tapentadol REFERENCE VALUE Cutoff: 100 37 Buprenex, Suboxone 38 Metabolite of buprenorphine 39 Metabolite of buprenorphine 40 Test detected the presence of buprenorphine and its metabolites (norbuprenorphine and norbuprenorphine glucuronide) along with naloxone and its metabolites (lmshacss-0-drsy-glucuronide and noroxymorphone/nornaloxone). Suspect use of buprenorphine with naloxone (e.g. Suboxone) within the past three days. ADDITIONAL INFORMATION This test was developed and its performance characteristics determined by [facility] in a manner consistent with CLIA requirements. This test has not been cleared or approved by the U.S. Food and Drug Administration. Test Performed by: [facility] - [facility] [address] [place] [address] 41 REFERENCE VALUE Cutoff: 500 42 REFERENCE VALUE Cutoff: 200 43 REFERENCE VALUE Cutoff: 100 44 REFERENCE VALUE Cutoff: 150 45 ADDITIONAL INFORMATION This report is intended for use in clinical monitoring or management of patients. It is not intended for use in employment-related testing. 46 REFERENCE VALUE Cutoff: 200 mg/L 47 Tylenol 3 48 Metabolite of codeine REFERENCE VALUE Cutoff: 100 49 Ledy Smiley, Contin; Also a minor metabolite (10%) of codeine and can be seen in low concentrations (<2,000 ng/mL) with poppy seed ingestion. 50 Metabolite of morphine REFERENCE VALUE Cutoff: 100 51 Metabolite of heroin 52 Lortab, [place], Vicodin; Also a very minor metabolite of codeine and impurity (<1%) of oxycodone. 53 Metabolite of hydrocodone 54 Metabolite of hydrocodone 55 Dilaudid, Exalgo; Also a metabolite of hydrocodone and a minor (<5%) metabolite of morphine. 56 Metabolite of hydromorphone REFERENCE VALUE Cutoff: 100 57 Endocet, Percocet, Oxycontin 58 Metabolite of oxycodone 59 Numorphan, Opana; Also a metabolite of oxycodone. 60 Metabolite of oxymorphone REFERENCE VALUE Cutoff: 100 61 Metabolite of oxymorphone 62 Actiq, Duragesic, Fentora 63 Metabolite of fentanyl 64 Demerol 65 Metabolite of meperidine 66 Narcan 67 Metabolite of naloxone REFERENCE VALUE Cutoff: 100 68 Dolophine 69 Metabolite of methadone 70 Darvon, Darvocet 71 Metabolite of propoxyphene 72 Tradol, Ultram, Ultracet 73 Metabolite of tramadol 74 Nucynta 75 Metabolite of tapentadol 76 Metabolite of tapentadol REFERENCE VALUE Cutoff: 100 77 Buprenex, Suboxone 78 Metabolite of buprenorphine 79 Metabolite of buprenorphine 80 Test detected the presence of buprenorphine metabolites (norbuprenorphine and norbuprenorphine glucuronide) along with naloxone metabolites (pgmqxvnu-4-wify-glucuronide and noroxymorphone/nornaloxone). Suspect use of buprenorphine with naloxone (e.g. Suboxone) within the past three days. ADDITIONAL INFORMATION This test was developed and its performance characteristics determined by [facility] in a manner consistent with CLIA requirements. This test has not been cleared or approved by the U.S. Food and Drug Administration. Test Performed by: [facility] - [address] [place] [address] 81 REFERENCE VALUE Cutoff: 500 82 REFERENCE VALUE Cutoff: 200 83 REFERENCE VALUE Cutoff: 100 84 REFERENCE VALUE Cutoff: 150 85 ADDITIONAL INFORMATION This report is intended for use in clinical monitoring or management of patients. It is not intended for use in employment-related testing. 86 REFERENCE VALUE Cutoff: 200 mg/L 87 Tylenol 3 88 Metabolite of codeine REFERENCE VALUE Cutoff: 100 89 Ledy Smiley, Contin; Also a minor metabolite (10%) of codeine and can be seen in low concentrations (<2,000 ng/mL) with poppy seed ingestion. 90 Metabolite of morphine REFERENCE VALUE Cutoff: 100 91 Metabolite of heroin 92 Lortab, [place], Vicodin; Also a very minor metabolite of codeine and impurity (<1%) of oxycodone. 93 Metabolite of hydrocodone 94 Metabolite of hydrocodone 95 Dilaudid, Exalgo; Also a metabolite of hydrocodone and a minor (<5%) metabolite of morphine. 96 Metabolite of hydromorphone REFERENCE VALUE Cutoff: 100 97 Endocet, Percocet, Oxycontin 98 Metabolite of oxycodone 99 Numorphan, Opana; Also a metabolite of oxycodone. 100 Metabolite of oxymorphone REFERENCE VALUE Cutoff: 100 101 Metabolite of oxymorphone 102 Actiq, Duragesic, Fentora 103 Metabolite of fentanyl 104 Demerol 105 Metabolite of meperidine 106 Narcan 107 Metabolite of naloxone REFERENCE VALUE Cutoff: 100 108 Dolophine 109 Metabolite of methadone 110 Darvon, Darvocet 111 Metabolite of propoxyphene 112 Tradol, Ultram, Ultracet 113 Metabolite of tramadol 114 Nucynta 115 Metabolite of tapentadol 116 Metabolite of tapentadol REFERENCE VALUE Cutoff: 100 117 Buprenex, Suboxone 118 Metabolite of buprenorphine 119 Metabolite of buprenorphine 120 Test detected the presence of norbuprenorphine and norbuprenorphine glucuronide which are metabolites of buprenorphine. Suspect use of buprenorphine within the past three days. ADDITIONAL INFORMATION This test was developed and its performance characteristics determined by [facility] in a manner consistent with CLIA requirements. This test has not been cleared or approved by the U.S. Food and Drug Administration. Test Performed by: [facility] [address] [place] [address] 121 REFERENCE VALUE Cutoff: 500 122 REFERENCE VALUE Cutoff: 200 123 REFERENCE VALUE Cutoff: 100 124 REFERENCE VALUE Cutoff: 150 125 ADDITIONAL INFORMATION This report is intended for use in clinical monitoring or management of patients. It is not intended for use in employment-related testing. 126 REFERENCE VALUE Cutoff: 200 mg/L 127 Tylenol 3 128 Metabolite of codeine REFERENCE VALUE Cutoff: 100 129 Ledy Smiley, Contin; Also a minor metabolite (10%) of codeine and can be seen in low concentrations (<2,000 ng/mL) with poppy seed ingestion. 130 Metabolite of morphine REFERENCE VALUE Cutoff: 100 131 Metabolite of heroin 132 Lortab, [place], Vicodin; Also a very minor metabolite of codeine and impurity (<1%) of oxycodone. 133 Metabolite of hydrocodone 134 Metabolite of hydrocodone 135 Dilaudid, Exalgo; Also a metabolite of hydrocodone and a minor (<5%) metabolite of morphine. 136 Metabolite of hydromorphone REFERENCE VALUE Cutoff: 100 137 Endocet, Percocet, Oxycontin 138 Metabolite of oxycodone 139 Numorphan, Opana; Also a metabolite of oxycodone. 140 Metabolite of oxymorphone REFERENCE VALUE Cutoff: 100 141 Metabolite of oxymorphone 142 Actiq, Duragesic, Fentora 143 Metabolite of fentanyl 144 Demerol 145 Metabolite of meperidine 146 Narcan 147 Metabolite of naloxone REFERENCE VALUE Cutoff: 100 148 Dolophine 149 Metabolite of methadone 150 Darvon, Darvocet 151 Metabolite of propoxyphene 152 Tradol, Ultram, Ultracet 153 Metabolite of tramadol 154 Nucynta 155 Metabolite of tapentadol 156 Metabolite of tapentadol REFERENCE VALUE Cutoff: 100 157 Buprenex, Suboxone 158 Metabolite of buprenorphine 159 Metabolite of buprenorphine 160 Test detected the presence of norbuprenorphine and norbuprenorphine glucuronide which are metabolites of buprenorphine. Suspect use of buprenorphine within the past three days. Test detected the presence of fnvxuyaj-2-cohj-glucuronide (metabolite of naloxone) only. Suspect use of naloxone (Narcan) within the past three days. ADDITIONAL INFORMATION This test was developed and its performance characteristics determined by [facility] in a manner consistent with CLIA requirements. This test has not been cleared or approved by the U.S. Food and Drug Administration. Test Performed by: [facility] [address] [place] [address] 161 SEE RESULT BELOW Name: MARIE ALONSO : [address]: Katelyn Benitez MD Acct: [id number] Unit: [id number] AGE: 22 Location: [facility] Re05/25/17 SEX: F Status: REG REF SPEC: [id number] CARYN: 05/25/17-7165 [facility] DR: Hawk Benitez MD REQ: [id number] RECD: [id number]/25/[id number] STATUS: SOUT _ ORDERED: TP IMAGE ANAL COMMENTS: [id number] FINAL DIAGNOSIS Negative for Intraepithelial lesion or Malignancy A. Ectocervical/Endocervical Specimen Adequacy: Satisfactory of evaluation Transformation zone component identified Patient Information: HPV: Thin Layer Pap Test w/reflex to high risk HPV RNA testing when ASCUS Actual Specimen Date: 05/25/17 LMP If Unknown: 2 yrs ago, IUD Spec Date if unknown: 3 yrs ago ?: N Post Menopausal?: N Hysterectomy?: N Previous Abnormal Pap Smears?:N Other Pertinent History: Prior at [facility]. Signed (signature on file) RENATE Samayoa(ASCP) 05/26 1423 This Pap test was evaluated with the assistance of the [employer] Test Imaging System. Due to cytologic findings at the iv therapy nurse microscope, comprehensive manual rescreening by a Funeral Arrangement Director may be required. The Pap Smear is a screening test designed to aid in the detection of premalignant and malignant conditions of the uterine cervix. It is not a diagnostic procedure and should not be used as the sole means of detecting cervical cancer. Both false- positive and false- negative reports do occur. Depending on your risk status, a Pap smear should be obtained and evaluated every 1-3 years. END OF REPORT * ML=Testing performed at Main Lab DEPARTMENT OF PATHOLOGY, [address] [place] [address] Spencer Rehman M.D. Director [facility] # [id number] 162 REFERENCE VALUE Cutoff: 500 163 REFERENCE VALUE Cutoff: 200 164 REFERENCE VALUE Cutoff: 100 165 REFERENCE VALUE Cutoff: 150 166 ADDITIONAL INFORMATION This report is intended for use in clinical monitoring or management of patients. It is not intended for use in employment-related testing. 167 REFERENCE VALUE Cutoff: 200 mg/L 168 Tylenol 3 169 Metabolite of codeine REFERENCE VALUE Cutoff: 100 170 Ledy Smiley, Contin; Also a minor metabolite (10%) of codeine and can be seen in low concentrations (<2,000 ng/mL) with poppy seed ingestion. 171 Metabolite of morphine REFERENCE VALUE Cutoff: 100 172 Metabolite of heroin 173 Lortab, [place], Vicodin; Also a very minor metabolite of codeine and impurity (<1%) of oxycodone. 174 Metabolite of hydrocodone 175 Metabolite of hydrocodone 176 Dilaudid, Exalgo; Also a metabolite of hydrocodone and a minor (<5%) metabolite of morphine. 177 Metabolite of hydromorphone REFERENCE VALUE Cutoff: 100 178 Endocet, Percocet, Oxycontin 179 Metabolite of oxycodone 180 Numorphan, Opana; Also a metabolite of oxycodone. 181 Metabolite of oxymorphone REFERENCE VALUE Cutoff: 100 182 Metabolite of oxymorphone 183 Actiq, Duragesic, Fentora 184 Metabolite of fentanyl 185 Demerol 186 Metabolite of meperidine 187 Narcan 188 Metabolite of naloxone REFERENCE VALUE Cutoff: 100 189 Dolophine 190 Metabolite of methadone 191 Darvon, Darvocet 192 Metabolite of propoxyphene 193 Tradol, Ultram, Ultracet 194 Metabolite of tramadol 195 Nucynta 196 Metabolite of tapentadol 197 Metabolite of tapentadol REFERENCE VALUE Cutoff: 100 198 Buprenex, Suboxone 199 Metabolite of buprenorphine 200 Metabolite of buprenorphine 201 Test detected the presence of buprenorphine and its metabolites (norbuprenorphine, norbuprenorphine glucuronide). Suspect use of buprenorphine within the past three days. Test detected the presence of jemqcela-0-bccl-glucuronide (metabolite of naloxone) only. Suspect use of naloxone (Narcan) within the past three days. ADDITIONAL INFORMATION This test was developed and its performance characteristics determined by [facility] in a manner consistent with CLIA requirements. This test has not been cleared or approved by the U.S. Food and Drug Administration. Test Performed by: [facility] - [employer] [employer] [address] [place] [address] 202 REFERENCE VALUE Cutoff: 500 203 REFERENCE VALUE Cutoff: 200 204 REFERENCE VALUE Cutoff: 100 205 REFERENCE VALUE Cutoff: 150 206 Presumptive Positive Drug confirmation to follow. Presumptive Positive means that the screening method is positive, but the test needs to be run by a confirmatory method before being finalized. ADDITIONAL INFORMATION This report is intended for use in clinical monitoring or management of patients. It is not intended for use in employment-related testing. 207 REFERENCE VALUE Cutoff: 200 mg/L 208 Tylenol 3 209 Metabolite of codeine REFERENCE VALUE Cutoff: 100 210 Ledy Smiley, Contin; Also a minor metabolite (10%) of codeine and can be seen in low concentrations (<2,000 ng/mL) with poppy seed ingestion. 211 Metabolite of morphine REFERENCE VALUE Cutoff: 100 212 RESULT: Results not available due to analyte specific failure. 213 Lortab, [place], Vicodin; Also a very minor metabolite of codeine and impurity (<1%) of oxycodone. 214 Metabolite of hydrocodone 215 Metabolite of hydrocodone 216 Dilaudid, Exalgo; Also a metabolite of hydrocodone and a minor (<5%) metabolite of morphine. 217 Metabolite of hydromorphone REFERENCE VALUE Cutoff: 100 218 Endocet, Percocet, Oxycontin 219 Metabolite of oxycodone 220 Numorphan, Opana; Also a metabolite of oxycodone. 221 Metabolite of oxymorphone REFERENCE VALUE Cutoff: 100 222 Metabolite of oxymorphone 223 Actiq, Duragesic, Fentora 224 Metabolite of fentanyl 225 Demerol 226 Metabolite of meperidine 227 Narcan 228 Metabolite of naloxone REFERENCE VALUE Cutoff: 100 229 Dolophine 230 Metabolite of methadone 231 Darvon, Darvocet 232 Metabolite of propoxyphene 233 Tradol, Ultram, Ultracet 234 Metabolite of tramadol 235 Nucynta 236 Metabolite of tapentadol 237 Metabolite of tapentadol REFERENCE VALUE Cutoff: 100 238 Buprenex, Suboxone 239 Metabolite of buprenorphine 240 Metabolite of buprenorphine 241 Test detected the presence of norbuprenorphine and norbuprenorphine glucuronide which are metabolites of buprenorphine. Suspect use of buprenorphine within the past three days. Test detected the presence of myrhxxcb-1-ojgq-glucuronide (metabolite of naloxone) only. Suspect use of naloxone (Narcan) within the past three days. ADDITIONAL INFORMATION This test was developed and its performance characteristics determined by [facility] in a manner consistent with CLIA requirements. This test has not been cleared or approved by the U.S. Food and Drug Administration. Test Performed by: [facility] - [address] [address] 242 REFERENCE VALUE Cutoff: 3.0 243 ADDITIONAL INFORMATION This report is intended for use in clinical monitoring and management of patients. It is not intended for use in employment-related testing. This test was developed and its performance characteristics determined by [facility] in a manner consistent with CLIA requirements. This test has not been cleared or approved by the U.S. Food and Drug Administration. Test Performed by: [facility] - [address] [address] 244 [id number] SEE RESULT BELOW Name: MARIE ALONSO : [address]: Katelyn Benitez MD Acct: [id number] Unit: [id number] AGE: 21 Location: [facility] Re12/16/16 SEX: F Status: REG REF SPEC: [id number] CARYN: 12/16/16-[address]: Hawk Benitez MD REQ: [id number] RECD: 12/16/16 STATUS: COMP _ SOURCE: URINE SPDESC: ORDERED: Urine Culture Procedure Result Reported Site Urine Culture Final 12/18/16- 08 ML No Growth (<1,000 CFU/mL) * ML - MAIN LAB (PSC1) . END OF REPORT * ML=Testing performed at Main Lab DEPARTMENT OF PATHOLOGY, [address] [place] [address] Spencer Rehman M.D. Director [facility] # [id number] 246 REFERENCE VALUE Cutoff: 3.0 247 ADDITIONAL INFORMATION This report is intended for use in clinical monitoring and management of patients. It is not intended for use in employment-related testing. This test was developed and its performance characteristics determined by [facility] in a manner consistent with CLIA requirements. This test has not been cleared or approved by the U.S. Food and Drug Administration. Test Performed by: [facility] - [facility] [address] [place] [id number] 248 REFERENCE VALUE Cutoff: 500 249 REFERENCE VALUE Cutoff: 200 250 REFERENCE VALUE Cutoff: 100 251 REFERENCE VALUE Cutoff: 150 252 Presumptive Positive Drug confirmation to follow. Presumptive Positive means that the screening method is positive, but the test needs to be run by a confirmatory method before being finalized. ADDITIONAL INFORMATION This report is intended for use in clinical monitoring or management of patients. It is not intended for use in employment-related testing. 253 REFERENCE VALUE Cutoff: 200 mg/L 254 Tylenol 3 255 Metabolite of codeine REFERENCE VALUE Cutoff: 100 256 Ledy Smiley, Contin; Also a minor metabolite (10%) of codeine and can be seen in low concentrations (<2,000 ng/mL) with poppy seed ingestion. 257 Metabolite of morphine REFERENCE VALUE Cutoff: 100 258 Metabolite of heroin 259 Lortab, [place], Vicodin; Also a very minor metabolite of codeine and impurity (<1%) of oxycodone. 260 Metabolite of hydrocodone 261 Metabolite of hydrocodone 262 Dilaudid, Exalgo; Also a metabolite of hydrocodone and a minor (<5%) metabolite of morphine. 263 Metabolite of hydromorphone REFERENCE VALUE Cutoff: 100 264 Endocet, Percocet, Oxycontin 265 Metabolite of oxycodone 266 Numorphan, Opana; Also a metabolite of oxycodone. 267 Metabolite of oxymorphone REFERENCE VALUE Cutoff: 100 268 Metabolite of oxymorphone 269 Actiq, Duragesic, Fentora 270 Metabolite of fentanyl 271 Demerol 272 Metabolite of meperidine 273 Narcan 274 Metabolite of naloxone REFERENCE VALUE Cutoff: 100 275 Dolophine 276 Metabolite of methadone 277 Darvon, Darvocet 278 Metabolite of propoxyphene 279 Tradol, Ultram, Ultracet 280 Metabolite of tramadol 281 Nucynta 282 Metabolite of tapentadol 283 Metabolite of tapentadol REFERENCE VALUE Cutoff: 100 284 Buprenex, Suboxone 285 Metabolite of buprenorphine 286 Metabolite of buprenorphine 287 Test detected the presence of norbuprenorphine and norbuprenorphine glucuronide which are metabolites of buprenorphine. Suspect use of buprenorphine within the past three days. Test detected the presence of nhwtohcf-0-zbne-glucuronide (metabolite of naloxone) only. Suspect use of naloxone (Narcan) within the past three days. ADDITIONAL INFORMATION This test was developed and its performance characteristics determined by [facility] in a manner consistent with CLIA requirements. This test has not been cleared or approved by the U.S. Food and Drug Administration. Test Performed by: [place] [address] 288 Test Performed by: [place] [address] 289 Because ethnic data is not always readily available, this report includes an eGFR for both -Americans and non- Americans. The National Kidney Disease Education Program (NKDEP) does not endorse the use of the MDRD equation for patients that are not between the ages of 18 and 70, are , have extremes of body size, muscle mass, or nutritional status, or are non- or non-. According to the National Kidney Foundation, irrespective of diagnosis, the stage of the disease is based on the level of kidney function: Stage Description GFR(mL/min/1.73 m(2)) 1 Kidney damage with normal or decreased GFR 90 2 Kidney damage with mild decrease in GFR 60-89 3 Moderate decrease in GFR 30-59 4 Severe decrease in GFR 15-29 5 Kidney failure <15 (or dialysis) 290 Please note: The following may produce a false positive D Dimer test: - Rheumatoid factor greater than 60 IU/ml - Plasma hemoglobin greater than 0.05 gm/dl - Bilirubin greater than 50 mg/dl - Lipids greater than 1000 mg/dl - FDP greater than 20 ug/ml 291 99th percentile=0.04 ng/mL Troponin results at [facility] and [facility] are not interchangeable. 292 REFERENCE VALUE Cutoff: 500 293 REFERENCE VALUE Cutoff: 200 294 REFERENCE VALUE Cutoff: 100 295 REFERENCE VALUE Cutoff: 150 296 Presumptive Positive Drug confirmation to follow. Presumptive Positive means that the screening method is positive, but the test needs to be run by a confirmatory method before being finalized. ADDITIONAL INFORMATION This report is intended for use in clinical monitoring or management of patients. It is not intended for use in employment-related testing. 297 REFERENCE VALUE Cutoff: 200 mg/L 298 Tylenol 3 299 Metabolite of codeine REFERENCE VALUE Cutoff: 100 300 Ledy Smiley, Contin; Also a minor metabolite (10%) of codeine and can be seen in low concentrations (<2,000 ng/mL) with poppy seed ingestion. 301 Metabolite of morphine REFERENCE VALUE Cutoff: 100 302 Metabolite of heroin 303 Lortab, [place], Vicodin; Also a very minor metabolite of codeine and impurity (<1%) of oxycodone. 304 Metabolite of hydrocodone 305 Metabolite of hydrocodone 306 Dilaudid, Exalgo; Also a metabolite of hydrocodone and a minor (<5%) metabolite of morphine. 307 Metabolite of hydromorphone REFERENCE VALUE Cutoff: 100 308 Endocet, Percocet, Oxycontin 309 Metabolite of oxycodone 310 Numorphan, Opana; Also a metabolite of oxycodone. 311 Metabolite of oxymorphone REFERENCE VALUE Cutoff: 100 312 Metabolite of oxymorphone 313 Actiq, Duragesic, Fentora 314 Metabolite of fentanyl 315 Demerol 316 Metabolite of meperidine 317 Narcan 318 Metabolite of naloxone REFERENCE VALUE Cutoff: 100 319 Dolophine 320 Metabolite of methadone 321 Darvon, Darvocet 322 Metabolite of propoxyphene 323 Tradol, Ultram, Ultracet 324 Metabolite of tramadol 325 Nucynta 326 Metabolite of tapentadol 327 Metabolite of tapentadol REFERENCE VALUE Cutoff: 100 328 Buprenex, Suboxone 329 Metabolite of buprenorphine 330 Metabolite of buprenorphine 331 Test detected the presence of ucolrwiz-2-untw-glucuronide (metabolite of morphine) only. Suspect use of morphine within the past three days. These results could also be suggestive of heroin use. Low levels of morphine can also be seen following poppy seed ingestion. Test detected the presence of norfentanyl (metabolite of fentanyl) only. Suspect use of fentanyl within the past three days. ADDITIONAL INFORMATION This test was developed and its performance characteristics determined by [facility] in a manner consistent with CLIA requirements. This test has not been cleared or approved by the U.S. Food and Drug Administration. Test Performed by: [place] [address] Senior Market Research Analyst: Wilbert Russ II, M.D., Ph.D. 332 REFERENCE VALUE Cutoff: 3.0 333 ADDITIONAL INFORMATION This report is intended for use in clinical monitoring and management of patients. It is not intended for use in employment-related testing. This test was developed and its performance characteristics determined by [facility] in a manner consistent with CLIA requirements. This test has not been cleared or approved by the U.S. Food and Drug Administration. Test Performed by: [address] [address] Senior Market Research Analyst: Wilbert Russ II, M.D., Ph.D. 334 Because ethnic data is not always readily available, this report includes an eGFR for both -Americans and non- Americans. The National Kidney Disease Education Program (NKDEP) does not endorse the use of the MDRD equation for patients that are not between the ages of 18 and 70, are , have extremes of body size, muscle mass, or nutritional status, or are non- or non-. According to the National Kidney Foundation, irrespective of diagnosis, the stage of the disease is based on the level of kidney function: Stage Description GFR(mL/min/1.73 m(2)) 1 Kidney damage with normal or decreased GFR 90 2 Kidney damage with mild decrease in GFR 60-89 3 Moderate decrease in GFR 30-59 4 Severe decrease in GFR 15-29 5 Kidney failure <15 (or dialysis) Procedures Date CPT Code Description Status 03/13/2017 47924 Destruction Of Benign Lesions Any Method 1-14 lesions Completed 12/27/2016 61463 Plethysmography Determination Lung Volumes & Per Airway Completed Resist 12/27/2016 75931 Pulmonary Function><Bronchodil Completed Encounters Type Date Location Provider CPT E/M Dx Office Visit 04/27/2018 8:40a [facility] Internal Medicine Hawk Benitez, [address] J40 - [place] Denis Coughlin,FACP F11.21 Office Visit 03/22/2018 9:40a [facility] Internal Hawk Benitez, [address]443 F11.21 Medicine - [place] Denis Coughlin,FACP J40 F17.210 Office Visit 01/10/2018 10:20a [facility] Internal Hawk Benitez, 64186 F11.21 Medicine - [place] Denis Coughlin,FACP F31.70 Office Visit 11/29/2017 12:00p [facility] Internal Hawk Benitez, [address]4798 F11.21 Medicine - [place] Denis Coughlin,FACP F31.70 Z23 Office Visit 08/23/2017 2:10p [facility] Internal Hawk Benitez, [address]8555 F11.21 Medicine - [place] Denis Coughlin,FACP F52.22 Office Visit 07/06/2017 10:20a [facility] Internal Hawk Benitez, 24833 F11.21 Medicine - [place] Denis Coughlin,FACP F17.210 Z23 Office Visit 05/25/2017 1:00p [facility] Hawk Benitez, [address] Z00.01 Medicine - [place] Denis Coughlin,FACP F17.210 F11.21 Z01.419 R19.00 Z23 Office Visit 04/24/2017 2:40p [facility] HawkSamra Benitez, [address]65 F11.21 Medicine - [address] M.Yolette,FACP B07.8 Office Visit 03/13/2017 1:30p [facility] [place] [address] I78.1 L81.4 B07.8 L53.8 Z78.9 L08.89 S60.943A S60.912A S60.922A Office Visit 03/08/2017 2:20p [facility] Internal Hawk Benitez, 12593 F11.19 Medicine - [address] M.Yolette,FACP B07.9 Office Visit 01/27/2017 2:30p [facility] Internal Hawk Benitez, [address]183 F11.19 Medicine - [address] M.Yolette,FACP F31.0 F17.210 Office Visit 12/16/2016 11:40a [facility] Internal Hawk Benitez, 43720 R06.00 Medicine - [address] M.Yolette,FACP F17.210 F11.19 Office Visit 11/14/2016 11:50a [facility] Internal Hawk Benitez, 58956 E05.90 Medicine - [address] M.Yolette,FACP F11.19 N39.0 Office Visit 10/17/2016 2:50p [facility] Internal Hawk Benitez, [address]3359 F11.19 Medicine - [address] M.Yolette,FACP E05.90 Office Visit 10/13/2016 4:20p [facility] Internal Hawk Benitez, [address]3772 F11.19 Medicine - [address] M.Yolette,FACP Office Visit 10/03/2016 1:40p [facility] Internal Hawk Benitez, 42562 F31.0 Medicine - [address] M.Yolette,FACP F11.21 Z23 Office Visit 09/02/2016 2:20p [facility] Internal Medicine Hawk Benitez, [address]45 F41.9 - [address] M.Yolette,FACP F11.21 Office Visit 08/23/2016 11:00a [facility] Internal Medicine Abhi Fleming, [address]85[address] F41.9 - Zaria Coughlin R42 E83.10 F11.10 Plan of Care Future Appointment(s):08/30/2018 2:00 pm - Hawk Benitez M.D.,FACP at [facility] Internal Medicine - [address]/29/2018 - Hawk Benitez M.D.,FACPF11.21 Opioid dependence, in remissionComments:Patient doing well on Suboxone, no major cravings, no relapse on opiates. ADVERTISING ASSISTANT reviewed, patient not obtaining opiates through other providers. Discussed counseling. UDS received in office today. Call us if you need refills.F31.70 Bipolar disord, currently in remis, most recent episode unspComments:Continue taking current medications as prescribed. Follow up with mental health as discussed.
[2018-07-17 11:26] VITALS: BP 110/67
== END 2018-07-17 11:56 | disposition home or self-care (01) ==
LOC: UCEAST 11:13
DX: J02.9 Acute pharyngitis, unspecified (principal); F17.210 Nicotine dependence, cigarettes, uncomplicated; Z88.5 Allergy status to narcotic agent
CPT/HCPCS: 87651; 99201; G0463

== ENCOUNTER 2018-09-13 12:57 | Emergency (ER) | payer BC ==
--- OUTSIDE RECORDS SUMMARY | 2018-09-13 13:20 | XMS REPORT | Continuity of Care Document ---
:1995 External Reference #:[id number] Author Name Yohana Guaman Care Team Providers Name Role Phone Hawk Benitez MD Primary Care Physician Unavailable Payers Type Date Identification Numbers Payment Provider Subscriber Policy Number: [id number] [employer] Kun Fink PayID: [id number] [address] [address] [place] [address] Expires: 2018 Policy Number: [id number] Medicaid Marie Alonso PayID: [id number] [address] [place] [address] Expires: 2018 Policy Number: [id number] Medicaid Marie Alonso Group Name: 1 1 [address] PayID: [id number] [place] [address] Advance Directives Description No Information Available Problems Date Description Provider Status Onset: 09/02/2016 Opioid abuse Sherie Ray M.D.,JET Onset: 11/14/2016 Light cigarette smoker (1-9 Hawk Benitez, Active cigs/day) Madyson,BETHANYP Onset: 01/27/2017 Bipolar I disorder Sherie Ray M.D., FACP Onset: 09/02/2016 Anxiety disorder Hawk Benitez Inactive BETHANY CoughlinP Inactive: 01/27/2017 Note: bipolar suspect Onset: 10/13/2016 Hyperthyroidism Hawk Benitez M.D.,BETHANYP Resolved Resolved: 11/16/2016 Note: suspect Family History Date Family Member(s) Problem(s) Comments : (1995) Father due to Drug Overdose Mother No Current Problems Siblings 1 First Brother premature, growth hormone def Social History Type Date Description Comments Sex Unknown Marital Status Significant Other Lives With Boyfriend Occupation Currently Working at [employer] Tobacco Use Start: Unknown Light tobacco smoker (10 or fewer cigarettes/day) ETOH Use 01/10/2018 Denies alcohol use Recreational Drug Use Former Drug User (+) hx heroin use; last use Jan 13 2017 Tobacco Use Start: Unknown Light tobacco smoker since age 12, 4-5 (10 or fewer cig/day cigarettes/day) Smoking Status Reviewed: 08/30/18 Light tobacco smoker since age 12, 4-5 (10 or fewer cig/day cigarettes/day) Exercise Type/Frequency Does not exercise Allergies, Adverse Reactions, Alerts Date Description Reaction Status Severity Comments 08/23/2016 Zoloft Active burning and itching head to toe 08/23/2016 Codeine Active chest pain Medications Medication Date Status Form Strength Qnty SIG Indications Ordering Provider Doxycycline 08/30/ Hx Tablets 100mg 20tab 1 by mouth Hawk Hyclate 2018 - s twice a day Yolette Benitez, 09/09/ M.D.,FACP 2019 Nicotrol 04/27/ Active Inhaler 10mg 168un 1 cartridges Hawk 2017 its every 2 hours Yolette Benitez, as needed M.D.,FACP Mirena (52 MG) 05/25/ Active IUD 20mcg/24H placed at [facility] Hawk 2016 R 11/2014? Yolette Benitez M.D.,FACP Suboxone 05/09/ Active Film 12-3mg 28uni take 1/2 film F11.19 Hawk 2016 ts sublingually Yolette Benitez, twice a day M.D.,FACP Gabapentin 11/14/ Active Tablets 600mg 30tab [...] Yolette Benitez, 03/27/ then 1 every M.D.,FACP 2017 day Bupropion HCL 03/22/ Hx Tablets ER 150mg 60tab 1 by mouth Hawk ER (SR) 2018 - 12HR s once a day Yolette Benitez, 08/30/ for 10 days M.D.,FACP 2018 then 1 in Am and 1 in early afternoon Neurontin 10/30/ Hx Capsules 400mg Hawk 2018 [...] - ts twice a day Yolette Benitez, 04/24/ M.D.,FACP 2017 Suboxone 10/13/ Hx Film 8-2mg 5unit 1 strip sl Hawk 2017 - s twice day Yolette Benitez, M.D.,FACP 2017 Quetiapine 10/03/ Hx Tablets 50mg 30tab take 1 tablet Hawk Conner 2017 - s by mouth at Yolette Benitez, 07/06/ bedtime as M.D.,FACP 2017 needed Gabapentin 09/02/ Hx Capsules 300mg 90cap 2 tabs bid Hawk 2016 - s plus 4 qhs DDena Benitez, 11/14/ M.D.,FACP 2017 No Active 08/23/ Hx Abhi Boyd Medications 2016 - Bernadette, M.D. 2016 Lexapro 08/23/ Hx Tablets 10mg 30tab 1 by mouth F41.9 Abhi Boyd 2016 - s every day Bernadette, M.D. 2015 Lamotrigine / Hx Tablets 25mg 1 po qd for 2 Unknown 0000 - wks, then 2 03/08/ qd for 2 wks 2017 then 4qd Immunizations CPT Code Status Date Vaccine Reaction Lot # [id number] Given 06/29/2018 Influenza Virus Vaccine, [id number] Quadrivalent, Split, Preservative Free 73783 Given 06/29/2018 Gardasil (HPV) [id number] 57952 Given 11/29/2017 Human Papillomavirus Vaccine [id number] Types; Nonavalent 3 [place] [address] Given 07/06/2017 Gardasil (HPV) no immediate reaction, [id number] pt tolerated well 17380 Given 05/25/2017 Pneumonia Vaccine [id number] 41801 Given 05/25/2017 Influenza Virus Vaccine, [id number] Quadrivalent, Split, Preservative Free 44098 Given 10/03/2016 Influenza Virus Vaccine, [id number] Quadrivalent, Split Virus, Im Use Vital Signs Date Vital Result Comment 08/30/2018 2:01pm Height 63 inches 5'3" Weight 135.00 lb Heart Rate 102 /min BP Systolic Sitting 126 mmHg BP Diastolic Sitting 60 mmHg Body Temperature 98.2 F O2 % BldC Oximetry 98 % BMI (Body Mass Index) 23.9 kg/m2 06/29/2018 8:28am Height 63 inches 5'3" Weight 129.00 lb Heart Rate 101 /min BP Systolic Sitting 118 mmHg BP Diastolic Sitting 62 mmHg Body Temperature 96.5 F O2 % BldC Oximetry 95 % BMI (Body Mass Index) 22.8 kg/m2 04/27/2018 8:48am Weight 125.00 lb Heart Rate 57 /min BP Systolic Sitting 120 mmHg BP Diastolic Sitting 68 mmHg Body Temperature 98.4 F O2 % BldC Oximetry 99 % 03/22/2018 9:43am Weight 120.00 lb Heart Rate 91 /min BP Systolic Sitting 108 mmHg BP Diastolic Sitting 70 mmHg Body Temperature 97.6 F O2 % BldC Oximetry 98 % 01/10/2018 10:12am Height 63 inches 5'3" Weight 119.00 lb Heart Rate 91 /min BP Systolic Sitting 110 mmHg BP Diastolic Sitting 78 mmHg Body Temperature 98.0 F O2 % BldC Oximetry 98 % BMI (Body Mass Index) 21.1 kg/m2 11/29/2017 12:00pm Weight 119.00 lb Heart Rate 87 /min BP Systolic Sitting 110 mmHg BP Diastolic Sitting 58 mmHg Body Temperature 98.5 F O2 % BldC Oximetry 98 % 08/23/2017 2:00pm Weight 121.00 lb Heart Rate 88 /min BP Systolic Sitting 116 mmHg BP Diastolic Sitting 66 mmHg Body Temperature 98.8 F O2 % BldC Oximetry 99 % 07/06/2017 10:12am Weight 121.00 lb Heart Rate 98 /min BP Systolic Sitting 122 mmHg BP Diastolic Sitting 66 mmHg Body Temperature 97.5 F O2 % BldC Oximetry 98 % 05/25/2017 12:49pm Height 63 inches 5'3" Weight 121.00 lb Heart Rate 90 /min BP Systolic Sitting 120 mmHg BP Diastolic Sitting 60 mmHg Body Temperature 98.7 F O2 % BldC Oximetry 98 % BMI (Body Mass Index) 21.4 kg/m2 04/24/2017 2:39pm Height 63 inches 5'3" Weight 128.00 lb Heart Rate 83 /min BP Systolic 118 mmHg BP Diastolic 74 mmHg Body Temperature 98.0 F O2 % BldC Oximetry 97 % BMI (Body Mass Index) 22.7 kg/m2 03/08/2017 1:39pm Weight 119.25 lb Heart Rate 95 /min BP Systolic Sitting 130 mmHg BP Diastolic Sitting 60 mmHg Body Temperature 99.1 F O2 % BldC Oximetry 98 % 01/27/2017 2:44pm Weight 121.00 lb Heart Rate 82 /min BP Systolic 118 mmHg BP Diastolic 62 mmHg Body Temperature 97.1 F O2 % BldC Oximetry 98 % 01/26/2017 10:49am Weight 120.00 lb Heart Rate 72 /min BP Systolic Sitting 108 mmHg BP Diastolic Sitting 64 mmHg Body Temperature 98.5 F O2 % BldC Oximetry 98 % 12/16/2016 12:00pm Weight 125.00 lb Heart Rate 103 /min BP Systolic Sitting 106 mmHg BP Diastolic Sitting 68 mmHg Body Temperature 99.0 F O2 % BldC Oximetry 99 % 11/14/2016 11:44am Weight 123.25 lb Heart Rate 108 /min BP Systolic Sitting 124 mmHg BP Diastolic Sitting 78 mmHg Body Temperature 99.3 F O2 % BldC Oximetry 98 % 10/17/2016 2:54pm Weight 130.25 lb Heart Rate 88 /min BP Systolic Sitting 110 mmHg BP Diastolic Sitting 70 mmHg Body Temperature 97.8 F 10/13/2016 4:27pm Weight 130.25 lb Heart Rate 95 /min BP Systolic Sitting 128 mmHg BP Diastolic Sitting 72 mmHg Body Temperature 98.3 F O2 % BldC Oximetry 99 % 10/03/2016 1:31pm Height 63.50 inches 5'3.50" Weight 126.00 lb Heart Rate 92 /min BP Systolic Sitting 124 mmHg BP Diastolic Sitting 82 mmHg Body Temperature 97.1 F O2 % BldC Oximetry 97 % BMI (Body Mass Index) 22.0 kg/m2 09/02/2016 2:30pm Weight 124.00 lb Heart Rate 82 /min BP Systolic Sitting 116 mmHg BP Diastolic Sitting 74 mmHg Body Temperature 98.4 F O2 % BldC Oximetry 97 % 08/23/2016 11:31am Height 63.50 inches 5'3.50" Weight 122.38 lb Heart Rate 94 /min BP Systolic 130 mmHg BP Diastolic 74 mmHg Body Temperature 98.0 F O2 % BldC Oximetry 98 % BMI (Body Mass Index) 21.3 kg/m2 Results Test Date Facility Test Result H/L Range Note Laboratory test 07/17/2018 [facility] Rapid Strep Negative Negative 1 finding [address] [place], [place] [id number] [phone] Urine Drug 06/29/2018 [facility] Amphetamine neg Screen Inhouse Confirm Urine 12 Urine Buprenorphine Conf QN pos Urine [...] Barbiturates QN Confirm neg Drug Abuse 20 03/22/2018 [facility] Urine Amphetamine Negative ng/mL 2 [address]rine [address] [place], [place] [id number] [phone] Urine Barbiturates Negative ng/mL 3 Urine Benzodiazepines Negative ng/mL 4 Urine Cocaine Negative ng/mL 5 Urine Phencyclidine Negative ng/mL Cutoff: 25 Urine Tetrahydrocannabinol Negative ng/mL Cutoff: 50 6 Creatinine, Urine 178.6 mg/dL Specific [place] 1.014 pH 6.5 Oxidants Negative 7 Adulterants Comment Normal Codeine, Ur Not Detected ng/mL Cutoff: 25 8 Vmbrehu-5-sirz-glucuronide, Ur Not Detected ng/mL 9 Morphine, Ur Not Detected ng/mL Cutoff: 25 10 Kbwjtrln-8-bblt-glucuronide, U Not Detected ng/mL 11 6-monoacetylmorphine, Ur Not Detected ng/mL Cutoff: 25 12 Hydrocodone, Ur Not Detected ng/mL Cutoff: 25 13 Norhydrocodone, Ur Not Detected ng/mL Cutoff: 25 14 Dihydrocodeine, Ur Not Detected ng/mL Cutoff: 25 15 Hydromorphone, Ur Not Detected ng/mL Cutoff: 25 16 Aakrixhpvdmnk6oernqulfnzdomxd Not Detected ng/mL 17 Oxycodone, Ur Not Detected ng/mL Cutoff: 25 18 Noroxycodone, Ur Not Detected ng/mL Cutoff: 25 19 Oxymorphone, Ur Not Detected ng/mL Cutoff: 25 20 Jjygcuqcsql-4-moqx-glucuronide Not Detected ng/mL 21 Noroxymorphone, Ur Present ng/mL Abnormal Cutoff: 25 22 Fentanyl, Ur Not Detected ng/mL Cutoff: 2 23 Norfentanyl, Ur See Comment ng/mL Cutoff: 2 24 Meperidine, Ur Not Detected ng/mL Cutoff: 25 25 Normeperidine, Ur Not Detected ng/mL Cutoff: 25 26 Naloxone, Ur Not Detected ng/mL Cutoff: 25 27 Cxvmrrsh-5-uqnv-glucuronide, U Present ng/mL Abnormal 28 Methadone, Ur Not Detected ng/mL Cutoff: 25 29 Eddp, Ur Not Detected ng/mL Cutoff: 25 30 Propoxyphene, Ur Not Detected ng/mL Cutoff: 25 31 Norpropoxyphene, Ur Not Detected ng/mL Cutoff: 25 32 Tramadol, Ur Not Detected ng/mL Cutoff: 25 33 O-desmethyltramadol, Ur Not Detected ng/mL Cutoff: 25 34 Tapentadol, Ur Not Detected ng/mL Cutoff: 25 35 N-desmethyltapentadol, Ur Not Detected ng/mL Cutoff: 50 36 Wrjrlfnlnf-ufwc-jsoqxrhgncq, U Not Detected ng/mL 37 Buprenorphine, Ur Present ng/mL Abnormal Cutoff: 5 38 Norbuprenorphine, Ur Present ng/mL Abnormal Cutoff: 5 39 Norbuprenorphine glucuronide Present ng/mL Abnormal Cutoff: 20 40 Opioid Interpretation See Comment 41 Drug Abuse 20 01/10/2018 [facility] Urine Amphetamine Negative ng/mL [address] [place] [address] [phone] Urine Barbiturates Negative ng/mL 43 Urine Benzodiazepines Negative ng/mL 44 Urine Cocaine Negative ng/mL 45 Urine Phencyclidine Negative ng/mL Cutoff: 25 Urine Tetrahydrocannabinol Negative ng/mL Cutoff: 50 46 Creatinine, Urine 135.0 mg/dL Specific [place] 1.012 pH 7.2 Oxidants Negative 47 Adulterants Comment Normal Codeine, Ur Not Detected ng/mL Cutoff: 25 48 Pmarfvz-2-jxee-glucuronide, Ur Not Detected ng/mL 49 Morphine, Ur Not Detected ng/mL Cutoff: 25 50 Htqycbrk-7-vgfw-glucuronide, U Not Detected ng/mL 51 6-monoacetylmorphine, Ur Not Detected ng/mL Cutoff: 25 52 Hydrocodone, Ur Not Detected ng/mL Cutoff: 25 53 Norhydrocodone, Ur Not Detected ng/mL Cutoff: 25 54 Dihydrocodeine, Ur Not Detected ng/mL Cutoff: 25 55 Hydromorphone, Ur Not Detected ng/mL Cutoff: 25 56 Eayjbyjigyrcj0wtuyoxstwjigtgw Not Detected ng/mL 57 Oxycodone, Ur Not Detected ng/mL Cutoff: 25 58 Noroxycodone, Ur Not Detected ng/mL Cutoff: 25 59 Oxymorphone, Ur Not Detected ng/mL Cutoff: 25 60 Lvnqznwdbtn-5-hmzi-glucuronide Not Detected ng/mL 61 Noroxymorphone, Ur Present ng/mL Abnormal Cutoff: 25 62 Fentanyl, Ur Not Detected ng/mL Cutoff: 2 63 Norfentanyl, Ur Not Detected ng/mL Cutoff: 2 64 Meperidine, Ur Not Detected ng/mL Cutoff: 25 65 Normeperidine, Ur Not Detected ng/mL Cutoff: 25 66 Naloxone, Ur Not Detected ng/mL Cutoff: 25 67 Anprxmkt-1-ozfc-glucuronide, U Present ng/mL Abnormal 68 Methadone, Ur Not Detected ng/mL Cutoff: 25 69 Eddp, Ur Not Detected ng/mL Cutoff: 25 70 Propoxyphene, Ur Not Detected ng/mL Cutoff: 25 71 Norpropoxyphene, Ur Not Detected ng/mL Cutoff: 25 72 Tramadol, Ur Not Detected ng/mL Cutoff: 25 73 O-desmethyltramadol, Ur Not Detected ng/mL Cutoff: 25 74 Tapentadol, Ur Not Detected ng/mL Cutoff: 25 75 N-desmethyltapentadol, Ur Not Detected ng/mL Cutoff: 50 76 Mzvcnucrla-tfrt-abauuuopxpf, U Not Detected ng/mL 77 Buprenorphine, Ur Not Detected ng/mL Cutoff: 5 78 Norbuprenorphine, Ur Present ng/mL Abnormal Cutoff: 5 79 Norbuprenorphine glucuronide Present ng/mL Abnormal Cutoff: 20 80 Opioid Interpretation See Comment 81 Drug Abuse 20 11/29/2017 [facility] Urine Amphetamine Negative ng/mL [address] [place] [address] [phone] Urine Barbiturates Negative ng/mL 83 Urine Benzodiazepines Negative ng/mL 84 Urine Cocaine Negative ng/mL 85 Urine Phencyclidine Negative ng/mL Cutoff: 25 Urine Tetrahydrocannabinol Negative ng/mL Cutoff: 50 86 Creatinine, Urine 35.0 mg/dL Specific [place] 1.004 pH 7.5 Oxidants Negative 87 Adulterants Comment Normal Codeine, Ur Not Detected ng/mL Cutoff: 25 88 Cghgptg-4-vvxy-glucuronide, Ur Not Detected ng/mL 89 Morphine, Ur Not Detected ng/mL Cutoff: 25 90 Ovmuurwl-1-dwzr-glucuronide, U Not Detected ng/mL 91 6-monoacetylmorphine, Ur Not Detected ng/mL Cutoff: 25 92 Hydrocodone, Ur Not Detected ng/mL Cutoff: 25 93 Norhydrocodone, Ur Not Detected ng/mL Cutoff: 25 94 Dihydrocodeine, Ur Not Detected ng/mL Cutoff: 25 95 Hydromorphone, Ur Not Detected ng/mL Cutoff: 25 96 Becgodhhewzlq7nbfnwstjsnexkdz Not Detected ng/mL 97 Oxycodone, Ur Not Detected ng/mL Cutoff: 25 98 Noroxycodone, Ur Not Detected ng/mL Cutoff: 25 99 Oxymorphone, Ur Not Detected ng/mL Cutoff: 25 100 Gbvmjpqzgsz-1-jyqh-glucuronide Not Detected ng/mL 101 Noroxymorphone, Ur Not Detected ng/mL Cutoff: 25 102 Fentanyl, Ur Not Detected ng/mL Cutoff: 2 103 Norfentanyl, Ur Not Detected ng/mL Cutoff: 2 104 Meperidine, Ur Not Detected ng/mL Cutoff: 25 105 Normeperidine, Ur Not Detected ng/mL Cutoff: 25 106 Naloxone, Ur Not Detected ng/mL Cutoff: 25 107 Loihqxnv-8-gxab-glucuronide, U Not Detected ng/mL 108 Methadone, Ur Not Detected ng/mL Cutoff: 25 109 Eddp, Ur Not Detected ng/mL Cutoff: 25 110 Propoxyphene, Ur Not Detected ng/mL Cutoff: 25 111 Norpropoxyphene, Ur Not Detected ng/mL Cutoff: 25 112 Tramadol, Ur Not Detected ng/mL Cutoff: 25 113 O-desmethyltramadol, Ur Not Detected ng/mL Cutoff: 25 114 Tapentadol, Ur Not Detected ng/mL Cutoff: 25 115 N-desmethyltapentadol, Ur Not Detected ng/mL Cutoff: 50 116 Epdijwgzuc-hlub-pypbtlcljyg, U Not Detected ng/mL 117 Buprenorphine, Ur Not Detected ng/mL Cutoff: 5 118 Norbuprenorphine, Ur Present ng/mL Abnormal Cutoff: 5 119 Norbuprenorphine glucuronide Present ng/mL Abnormal Cutoff: 20 120 Opioid Interpretation See Comment 121 Drug Abuse 08/23/2017 [facility] Urine Amphetamine Negative ng/ mL 122 [address] [place] [address] [phone] Urine Barbiturates Negative ng/mL 123 Urine Benzodiazepines Negative ng/mL 124 Urine Cocaine Negative ng/mL 125 Urine Phencyclidine Negative ng/mL Cutoff: 25 Urine Tetrahydrocannabinol Negative ng/mL Cutoff: 50 126 Creatinine, Urine 18.6 mg/dL Specific [place] 1.004 pH 7.4 Oxidants Negative 127 Adulterants Comment Normal Codeine, Ur Not Detected ng/mL Cutoff: 25 128 Axptpbh-6-mkip-glucuronide, Ur Not Detected ng/mL 129 Morphine, Ur Not Detected ng/mL Cutoff: 25 130 Bqsxajuu-4-bnmd-glucuronide, U Not Detected ng/mL 131 6-monoacetylmorphine, Ur Not Detected ng/mL Cutoff: 25 132 Hydrocodone, Ur Not Detected ng/mL Cutoff: 25 133 Norhydrocodone, Ur Not Detected ng/mL Cutoff: 25 134 Dihydrocodeine, Ur Not Detected ng/mL Cutoff: 25 135 Hydromorphone, Ur Not Detected ng/mL Cutoff: 25 136 Cbusxulkqpxcw2eppnlsplndlyzyr Not Detected ng/mL 137 Oxycodone, Ur Not Detected ng/mL Cutoff: 25 138 Noroxycodone, Ur Not Detected ng/mL Cutoff: 25 139 Oxymorphone, Ur Not Detected ng/mL Cutoff: 25 140 Kexnyboovak-9-immb-glucuronide Not Detected ng/mL 141 Noroxymorphone, Ur Not Detected ng/mL Cutoff: 25 142 Fentanyl, Ur Not Detected ng/mL Cutoff: 2 143 Norfentanyl, Ur Not Detected ng/mL Cutoff: 2 144 Meperidine, Ur Not Detected ng/mL Cutoff: 25 145 Normeperidine, Ur Not Detected ng/mL Cutoff: 25 146 Naloxone, Ur Not Detected ng/mL Cutoff: 25 147 Rmcbeino-3-svai-glucuronide, U Present ng/mL 148 Methadone, Ur Not Detected ng/mL Cutoff: 25 149 Eddp, Ur Not Detected ng/mL Cutoff: 25 150 Propoxyphene, Ur Not Detected ng/mL Cutoff: 25 151 Norpropoxyphene, Ur Not Detected ng/mL Cutoff: 25 152 Tramadol, Ur Not Detected ng/mL Cutoff: 25 153 O-desmethyltramadol, Ur Not Detected ng/mL Cutoff: 25 154 Tapentadol, Ur Not Detected ng/mL Cutoff: 25 155 N-desmethyltapentadol, Ur Not Detected ng/mL Cutoff: 50 156 Ysyxnruixu-ytye-ldhvjzrcbmq, U Not Detected ng/mL 157 Buprenorphine, Ur Not Detected ng/mL Cutoff: 5 158 Norbuprenorphine, Ur Present ng/mL Cutoff: 5 159 Norbuprenorphine glucuronide Present ng/mL Cutoff: 20 160 Opioid Interpretation See Comment 161 Laboratory 05/25/2017 [facility] Cytology SEE RESULT 162 test finding [address] [place] [address] [phone] GC/Chlamydia 05/25/2017 [facility] Chlamydia Negative N Negative Amplified Rna [address] [place] [address] [phone] Neisseria gonorrhoeae (GC) Rna Negative N Negative Drug Abuse 04/24/2017 [facility] Urine Amphetamine Negative ng/ mL N 163 [address] [place] [address] [phone] Urine Barbiturates Negative ng/mL N 164 Urine Benzodiazepines Negative ng/mL N 165 Urine Cocaine Negative ng/mL N 166 Urine Phencyclidine Negative ng/mL N Cutoff: 25 Urine Tetrahydrocannabinol Negative ng/mL N Cutoff: 50 167 Creatinine, Urine 29.1 mg/dL N Specific [place] 1.004 N pH 6.0 N Oxidants Negative N 168 Adulterants Comment Normal N Codeine, Ur Not Detected ng/mL N Cutoff: 25 169 Gplcbhs-1-gabx-glucuronide, Ur Not Detected ng/mL N 170 Morphine, Ur Not Detected ng/mL N Cutoff: 25 171 Pxpajwpa-5-gbit-glucuronide, U Not Detected ng/mL N 172 6-monoacetylmorphine, Ur Not Detected ng/mL N Cutoff: 25 173 Hydrocodone, Ur Not Detected ng/mL N Cutoff: 25 174 Norhydrocodone, Ur Not Detected ng/mL N Cutoff: 25 175 Dihydrocodeine, Ur Not Detected ng/mL N Cutoff: 25 176 Hydromorphone, Ur Not Detected ng/mL N Cutoff: 25 177 Nszgpilqnakqi6fkvfgxxbhzdnedl Not Detected ng/mL N 178 Oxycodone, Ur Not Detected ng/mL N Cutoff: 25 179 Noroxycodone, Ur Not Detected ng/mL N Cutoff: 25 180 Oxymorphone, Ur Not Detected ng/mL N Cutoff: 25 181 Zmpwxbeyyow-7-dslf-glucuronide Not Detected ng/mL N 182 Noroxymorphone, Ur Not Detected ng/mL N Cutoff: 25 183 Fentanyl, Ur Not Detected ng/mL N Cutoff: 2 184 Norfentanyl, Ur Not Detected ng/mL N Cutoff: 2 185 Meperidine, Ur Not Detected ng/mL N Cutoff: 25 186 Normeperidine, Ur Not Detected ng/mL N Cutoff: 25 187 Naloxone, Ur Not Detected ng/mL N Cutoff: 25 188 Wknlkrii-3-zpyh-glucuronide, U Present ng/mL N 189 Methadone, Ur Not Detected ng/mL N Cutoff: 25 190 Eddp, Ur Not Detected ng/mL N Cutoff: 25 191 Propoxyphene, Ur Not Detected ng/mL N Cutoff: 25 192 Norpropoxyphene, Ur Not Detected ng/mL N Cutoff: 25 193 Tramadol, Ur Not Detected ng/mL N Cutoff: 25 194 O-desmethyltramadol, Ur Not Detected ng/mL N Cutoff: 25 195 Tapentadol, Ur Not Detected ng/mL N Cutoff: 25 196 N-desmethyltapentadol, Ur Not Detected ng/mL N Cutoff: 50 197 Hlhrrlegos-iaex-kcwxolkzchq, U Not Detected ng/mL N 198 Buprenorphine, Ur Present ng/mL N Cutoff: 5 199 Norbuprenorphine, Ur Present ng/mL N Cutoff: 5 200 Norbuprenorphine glucuronide Present ng/mL N Cutoff: 20 201 Opioid Interpretation See Comment N 202 Drug Abuse 01/26/2017 [facility] Urine Amphetamine Negative ng/ mL N 203 [address] [place] [address] [phone] Urine Barbiturates Negative ng/mL N 204 Urine Benzodiazepines Negative ng/mL N 205 Urine Cocaine Negative ng/mL N 206 Urine Phencyclidine Negative ng/mL N Cutoff: 25 Urine Tetrahydrocannabinol Presumptive Posi <SEE NOTE> ng/mL N Cutoff: 50 207 Creatinine 160.3 mg/dL N Specific [place] 1.015 N pH 5.9 N Oxidants Negative N 208 Adulterants Comment Normal N Codeine, Ur Not Detected ng/mL N Cutoff: 25 209 Ybhnjdx-2-zufc-glucuronide, Ur Not Detected ng/mL N 210 Morphine, Ur Not Detected ng/mL N Cutoff: 25 211 Snqnkybh-2-jqwj-glucuronide, U Not Detected ng/mL N 212 6-monoacetylmorphine, Ur See Comment ng/mL N Cutoff: 25 213 Hydrocodone, Ur Not Detected ng/mL N Cutoff: 25 214 Norhydrocodone, Ur Not Detected ng/mL N Cutoff: 25 215 Dihydrocodeine, Ur Not Detected ng/mL N Cutoff: 25 216 Hydromorphone, Ur Not Detected ng/mL N Cutoff: 25 217 Wsosepsnnrjhb4guztmcgwlazccdl Not Detected ng/mL N 218 Oxycodone, Ur Not Detected ng/mL N Cutoff: 25 219 Noroxycodone, Ur Not Detected ng/mL N Cutoff: 25 220 Oxymorphone, Ur Not Detected ng/mL N Cutoff: 25 221 Igifvalyulx-0-qrzi-glucuronide Not Detected ng/mL N 222 Noroxymorphone, Ur Not Detected ng/mL N Cutoff: 25 223 Fentanyl, Ur Not Detected ng/mL N Cutoff: 2 224 Norfentanyl, Ur Not Detected ng/mL N Cutoff: 2 225 Meperidine, Ur Not Detected ng/mL N Cutoff: 25 226 Normeperidine, Ur Not Detected ng/mL N Cutoff: 25 227 Naloxone, Ur Not Detected ng/mL N Cutoff: 25 228 Nbtwlbmn-8-zzmb-glucuronide, U Present ng/mL N 229 Methadone, Ur Not Detected ng/mL N Cutoff: 25 230 Eddp, Ur Not Detected ng/mL N Cutoff: 25 231 Propoxyphene, Ur Not Detected ng/mL N Cutoff: 25 232 Norpropoxyphene, Ur Not Detected ng/mL N Cutoff: 25 233 Tramadol, Ur Not Detected ng/mL N Cutoff: 25 234 O-desmethyltramadol, Ur Not Detected ng/mL N Cutoff: 25 235 Tapentadol, Ur Not Detected ng/mL N Cutoff: 25 236 N-desmethyltapentadol, Ur Not Detected ng/mL N Cutoff: 50 237 Rngdvgkscp-igzw-ahzmyfciqvc, U Not Detected ng/mL N 238 Buprenorphine, Ur Not Detected ng/mL N Cutoff: 5 239 Norbuprenorphine, Ur Present ng/mL N Cutoff: 5 240 Norbuprenorphine glucuronide Present ng/mL N Cutoff: 20 241 Opioid Interpretation See Comment N 242 THC Confirmation 01/26/2017 [facility] Urine Carboxy 176 ng/mL N [address] THC Confirm [place], [place] [id number] [phone] Urine THC Interpretation Positive. N 244 Urine Culture And 12/16/2016 [facility] Urine SEE RESULT 245, [address] Culture [place]OW [place], [place] [id number] [phone] THC Confirmation 12/16/2016 [facility] Urine 150 ng/mL N [address] [place] [address] Confirm [phone] Urine THC Interpretation Positive. N 248 Urinalysis Profile 12/16/2016 [facility] Urine Color Yellow N [address] [place], [place] [id number] [phone] Urine Appearance Clear N Urine Specific [place] 1.006 Low 1.010-1.030 Urine pH 6.0 N 5-9 Urine Urobilinogen Negative N Negative Urine Ketones Negative N Negative Urine Protein Negative N Negative Urine Leukocytes Trace Abnormal Negative Urine Blood Negative N Negative Urine Nitrite Negative N Negative Urine Bilirubin Negative N Negative Urine Glucose Negative N Negative Urine White Blood Cell Trace(0-5/hpf) N Absent Urine Red Blood Cell Trace(0-2/hpf) N Absent Urine Bacteria Absent N Absent Urine Squamous Epithelial Cell Present Abnormal Absent Drug Abuse 12/16/2016 [facility] Urine Amphetamine Negative ng/ mL N [address] [place] [address] [phone] Urine Barbiturates Negative ng/mL N 250 Urine Benzodiazepines Negative ng/mL N 251 Urine Cocaine Negative ng/mL N 252 Urine Phencyclidine Negative ng/mL N Cutoff: 25 Urine Tetrahydrocannabinol Presumptive Posi <SEE NOTE> ng/mL N Cutoff: 50 253 Creatinine 36.6 mg/dL N Specific [place] 1.004 N pH 6.2 N Oxidants Negative N 254 Adulterants Comment Normal N Codeine, Ur Not Detected ng/mL N Cutoff: 25 255 Lpdwaur-8-lttu-glucuronide, Ur Not Detected ng/mL N 256 Morphine, Ur Not Detected ng/mL N Cutoff: 25 257 Yveewmqo-3-rhoo-glucuronide, U Not Detected ng/mL N 258 6-monoacetylmorphine, Ur Not Detected ng/mL N Cutoff: 25 259 Hydrocodone, Ur Not Detected ng/mL N Cutoff: 25 260 Norhydrocodone, Ur Not Detected ng/mL N Cutoff: 25 261 Dihydrocodeine, Ur Not Detected ng/mL N Cutoff: 25 262 Hydromorphone, Ur Not Detected ng/mL N Cutoff: 25 263 Nyskycghiodiy9toeiyfqpbhseoez Not Detected ng/mL N 264 Oxycodone, Ur Not Detected ng/mL N Cutoff: 25 265 Noroxycodone, Ur Not Detected ng/mL N Cutoff: 25 266 Oxymorphone, Ur Not Detected ng/mL N Cutoff: 25 267 Kmatnlbophd-8-tvrb-glucuronide Not Detected ng/mL N 268 Noroxymorphone, Ur Not Detected ng/mL N Cutoff: 25 269 Fentanyl, Ur Not Detected ng/mL N Cutoff: 2 270 Norfentanyl, Ur Not Detected ng/mL N Cutoff: 2 271 Meperidine, Ur Not Detected ng/mL N Cutoff: 25 272 Normeperidine, Ur Not Detected ng/mL N Cutoff: 25 273 Naloxone, Ur Not Detected ng/mL N Cutoff: 25 274 Xhpthowv-4-jkic-glucuronide, U Present ng/mL N 275 Methadone, Ur Not Detected ng/mL N Cutoff: 25 276 Eddp, Ur Not Detected ng/mL N Cutoff: 25 277 Propoxyphene, Ur Not Detected ng/mL N Cutoff: 25 278 Norpropoxyphene, Ur Not Detected ng/mL N Cutoff: 25 279 Tramadol, Ur Not Detected ng/mL N Cutoff: 25 280 O-desmethyltramadol, Ur Not Detected ng/mL N Cutoff: 25 281 Tapentadol, Ur Not Detected ng/mL N Cutoff: 25 282 N-desmethyltapentadol, Ur Not Detected ng/mL N Cutoff: 50 283 Nzosekknar-fdzo-kumyfwlujlc, U Not Detected ng/mL N 284 Buprenorphine, Ur Not Detected ng/mL N Cutoff: 5 285 Norbuprenorphine, Ur Present ng/mL N Cutoff: 5 286 Norbuprenorphine glucuronide Present ng/mL N Cutoff: 20 287 Opioid Interpretation See Comment N 288 Laboratory test 11/14/2016 [facility] TSH (Thyroid 0.66 mcIU/mL N 0.34-5.[address] Stim Horm) [place] [address] [phone] Thyroxine 8.26 ?g/dL N 6.09-12.23 T3 Total 1.38 ng/mL N 0.87-1.78 Thyroperoxidase AB 0.59 IU/mL N <9 Thyroid Stimulating Igg (Tsi) <1.0 TSIindex N <=1.3 289 CBC Auto Diff 11/14/2016 [facility] White Blood 8.8 10^3/uL N 3.5-10.[address] [place] [address] [phone] Red Blood Count 4.16 10^6/uL N 4.0-5.4 Hemoglobin 12.8 g/dL N 12.0-16.0 Hematocrit 38 % N 35-47 Mean Corpuscular Volume 90 fL N 80-97 Mean Corpuscular Hemoglobin 31 pg N 27-31 Mean Corpuscular HGB Conc 34 g/dL N 31-36 Red Cell Distribution Width 13 % N 10.5-15 Platelet Count 242 10^3/uL N 150-450 Mean Platelet Volume 9 um3 N 7.4-10.4 Abs Neutrophils 4.8 10^3/uL N 1.5-7.7 Abs Lymphocytes 3.0 10^3/uL N 1.0-4.8 Abs Monocytes 0.6 10^3/uL N 0-0.8 Abs Eosinophils 0.2 10^3/uL N 0-0.6 Abs Basophils 0.1 10^3/uL N 0-0.2 Abs Nucleated RBC 0 10^3/uL N Granulocyte % 54.9 % N 38-83 Lymphocyte % 34.6 % N 25-47 Monocyte % 7.0 % N 1-9 Eosinophil % 2.7 % N 0-6 Basophil % 0.8 % N 0-2 Nucleated Red Blood Cells % 0 N Comp Metabolic Panel 11/14/2016 [facility] Sodium 139 mmol/L N 133-145 [address] [place] [address] [phone] Potassium 3.9 mmol/L N 3.5-5.0 Chloride 103 mmol/L N 101-111 Co2 Carbon Dioxide 30 mmol/L N 22-32 Anion Gap 6 mmol/L N 2-11 Glucose 93 mg/dL N 70-100 Blood Urea Nitrogen 12 mg/dL N 6-24 Creatinine 0.74 mg/dL N 0.51-0.95 BUN/Creatinine Ratio 16.2 N 8-20 Calcium 9.9 mg/dL N 8.6-10.3 Total Protein 7.3 g/dL N 6.4-8.9 Albumin 4.6 g/dL N 3.2-5.2 Globulin 2.7 g/dL N 2-4 Albumin/Globulin Ratio 1.7 N 1-3 Total Bilirubin 0.40 mg/dL N 0.2-1.0 Alkaline Phosphatase 56 U/L N 34-104 Alt 9 U/L N 7-52 Ast 16 U/L N 13-39 Egfr Non- 97.3 N >60 Egfr 125.1 N >60 290 Laboratory test 11/14/2016 [facility] D Dimer < 200 N Less [address] Quantitative ng/mL Than 230 [place] [address] [phone] Troponin-I (TnI) 0.05 ng/mL High <0.04 292 Drug Abuse 10/13/2016 [facility] Urine Amphetamine Negative ng/ mL N 293 20 Urine [address] [place] [address] [phone] Urine Barbiturates Negative ng/mL N 294 Urine Benzodiazepines Negative ng/mL N 295 Urine Cocaine Negative ng/mL N 296 Urine Phencyclidine Negative ng/mL N Cutoff: 25 Urine Tetrahydrocannabinol Presumptive Posi <SEE NOTE> ng/mL N Cutoff: 50 297 Creatinine 104.4 mg/dL N Specific [place] 1.014 N pH 7.3 N Oxidants Negative N 298 Adulterants Comment Normal N Codeine, Ur Not Detected ng/mL N Cutoff: 25 299 Usrjuvr-5-azgm-glucuronide, Ur Not Detected ng/mL N 300 Morphine, Ur Not Detected ng/mL N Cutoff: 25 301 Ygvrebvf-9-boxi-glucuronide, U Present ng/mL N 302 6-monoacetylmorphine, Ur Not Detected ng/mL N Cutoff: 25 303 Hydrocodone, Ur Not Detected ng/mL N Cutoff: 25 304 Norhydrocodone, Ur Not Detected ng/mL N Cutoff: 25 305 Dihydrocodeine, Ur Not Detected ng/mL N Cutoff: 25 306 Hydromorphone, Ur Not Detected ng/mL N Cutoff: 25 307 Jreprrizwllhy4sapkbflinxlbrhn Not Detected ng/mL N 308 Oxycodone, Ur Not Detected ng/mL N Cutoff: 25 309 Noroxycodone, Ur Not Detected ng/mL N Cutoff: 25 310 Oxymorphone, Ur Not Detected ng/mL N Cutoff: 25 311 Kyetqgvevhr-2-wdcr-glucuronide Not Detected ng/mL N 312 Noroxymorphone, Ur Not Detected ng/mL N Cutoff: 25 313 Fentanyl, Ur Not Detected ng/mL N Cutoff: 2 314 Norfentanyl, Ur Present ng/mL N Cutoff: 2 315 Meperidine, Ur Not Detected ng/mL N Cutoff: 25 316 Normeperidine, Ur Not Detected ng/mL N Cutoff: 25 317 Naloxone, Ur Not Detected ng/mL N Cutoff: 25 318 Cwwgrwor-3-aaaz-glucuronide, U Not Detected ng/mL N 319 Methadone, Ur Not Detected ng/mL N Cutoff: 25 320 Eddp, Ur Not Detected ng/mL N Cutoff: 25 321 Propoxyphene, Ur Not Detected ng/mL N Cutoff: 25 322 Norpropoxyphene, Ur Not Detected ng/mL N Cutoff: 25 323 Tramadol, Ur Not Detected ng/mL N Cutoff: 25 324 O-desmethyltramadol, Ur Not Detected ng/mL N Cutoff: 25 325 Tapentadol, Ur Not Detected ng/mL N Cutoff: 25 326 N-desmethyltapentadol, Ur Not Detected ng/mL N Cutoff: 50 327 Gborfnbyyq-vvrh-lyjveqmykwz, U Not Detected ng/mL N 328 Buprenorphine, Ur Not Detected ng/mL N Cutoff: 5 329 Norbuprenorphine, Ur Not Detected ng/mL N Cutoff: 5 330 Norbuprenorphine glucuronide Not Detected ng/mL N Cutoff: 20 331 Opioid Interpretation See Comment N 332 THC Confirmation 10/13/2016 [facility] Urine Carboxy 286 ng/mL N [address] [place] [address] [phone] Urine THC Interpretation Positive. N 334 Laboratory test 10/13/2016 [facility] TSH (Thyroid 0.26 Low 0.34-5.[address] Stim Horm) mcIU/[place] [address] [phone] CBC Auto Diff 10/13/2016 [facility] White Blood 9.6 10^3/uL N 3.5-10.[address] [place] [address] [phone] Red Blood Count 4.31 10^6/uL N 4.0-5.4 Hemoglobin 13.1 g/dL N 12.0-16.0 Hematocrit 39 % N 35-47 Mean Corpuscular Volume 90 fL N 80-97 Mean Corpuscular Hemoglobin 30 pg N 27-31 Mean Corpuscular HGB Conc 34 g/dL N 31-36 Red Cell Distribution Width 14 % N 10.5-15 Platelet Count 221 10^3/uL N 150-450 Mean Platelet Volume 9 um3 N 7.4-10.4 Abs Neutrophils 5.1 10^3/uL N 1.5-7.7 Abs Lymphocytes 3.7 10^3/uL N 1.0-4.8 Abs Monocytes 0.5 10^3/uL N 0-0.8 Abs Eosinophils 0.2 10^3/uL N 0-0.6 Abs Basophils 0.1 10^3/uL N 0-0.2 Abs Nucleated RBC 0 10^3/uL N Granulocyte % 53.4 % N 38-83 Lymphocyte % 38.5 % N 25-47 Monocyte % 5.5 % N 1-9 Eosinophil % 2.0 % N 0-6 Basophil % 0.6 % N 0-2 Nucleated Red Blood Cells % 0 N Comp Metabolic Panel 10/13/2016 [facility] Sodium 139 mmol/L N 133-[address] [place] [address] [phone] Potassium 4.5 mmol/L N 3.5-5.0 Chloride 105 mmol/L N 101-111 Co2 Carbon Dioxide 31 mmol/L N 22-32 Anion Gap 3 mmol/L N 2-11 Glucose 73 mg/dL N 70-100 Blood Urea Nitrogen 13 mg/dL N 6-24 Creatinine 0.67 mg/dL N 0.51-0.95 BUN/Creatinine Ratio 19.4 N 8-20 Calcium 9.7 mg/dL N 8.6-10.3 Total Protein 7.2 g/dL N 6.4-8.9 Albumin 4.6 g/dL N 3.2-5.2 Globulin 2.6 g/dL N 2-4 Albumin/Globulin Ratio 1.8 N 1-3 Total Bilirubin 0.30 mg/dL N 0.2-1.0 Alkaline Phosphatase 60 U/L N 34-104 Alt 9 U/L N 7-52 Ast 13 U/L N 13-39 Egfr Non- 109.1 N >60 Egfr 140.3 N >60 335 Iron & Iron Binding 10/13/2016 [facility] Iron 55 g/dL N 50- 212 [address] [place] [address] [phone] Unsaturated Iron Binding 285 g/dL N Total Iron Binding Capacity 340 g/dL N 250-450 % Iron Saturation 16 % N 15-55 Laboratory test 10/13/2016 [facility] Ferritin 60.3 ng/mL N 11 -307 [address] [employer] [place] [address] [phone] 1 [employer] Helper: [id number] REFERENCE VALUE Cutoff: 500 3 REFERENCE VALUE Cutoff: 200 4 REFERENCE VALUE Cutoff: 100 5 REFERENCE VALUE Cutoff: 150 6 ADDITIONAL INFORMATION This report is intended for use in clinical monitoring or management of patients. It is not intended for use in employment-related testing. 7 REFERENCE VALUE Cutoff: 200 mg/L 8 Tylenol 3 9 Metabolite of codeine REFERENCE VALUE Cutoff: 100 10 Ledy Smiley, MS Contin; Also a minor metabolite (10%) of codeine and can be seen in low concentrations (<2,000 ng/mL) with poppy seed ingestion. 11 Metabolite of morphine REFERENCE VALUE Cutoff: 100 12 Metabolite of heroin 13 Lortab, [place], Vicodin; Also a very minor metabolite of codeine and impurity (<1%) of oxycodone. 14 Metabolite of hydrocodone 15 Metabolite of hydrocodone 16 Dilaudid, Exalgo; Also a metabolite of hydrocodone and a minor (<5%) metabolite of morphine. 17 Metabolite of hydromorphone REFERENCE VALUE Cutoff: 100 18 Endocet, Percocet, Oxycontin 19 Metabolite of oxycodone 20 Numorphan, Opana; Also a metabolite of oxycodone. 21 Metabolite of oxymorphone REFERENCE VALUE Cutoff: 100 22 Metabolite of oxymorphone 23 Actiq, Duragesic, Fentora 24 Unknown interfering substance present; unable to obtain results. 25 Demerol 26 Metabolite of meperidine 27 Narcan 28 Metabolite of naloxone REFERENCE VALUE Cutoff: 100 29 Dolophine 30 Metabolite of methadone 31 Darvon, Darvocet 32 Metabolite of propoxyphene 33 Tradol, Ultram, Ultracet 34 Metabolite of tramadol 35 Nucynta 36 Metabolite of tapentadol 37 Metabolite of tapentadol REFERENCE VALUE Cutoff: 100 38 Buprenex, Suboxone 39 Metabolite of buprenorphine 40 Metabolite of buprenorphine 41 Test detected the presence of buprenorphine and its metabolites (norbuprenorphine and norbuprenorphine glucuronide) along with naloxone and its metabolites (wgdtdvno-8-wjjw-glucuronide and noroxymorphone/nornaloxone). Suspect use of buprenorphine with naloxone (e.g. Suboxone) within the past three days. ADDITIONAL INFORMATION This test was developed and its performance characteristics determined by [facility] in a manner consistent with CLIA requirements. This test has not been cleared or approved by the U.S. Food and Drug Administration. Test Performed by: [facility] [address] [place] [address] 42 REFERENCE VALUE Cutoff: 500 43 REFERENCE VALUE Cutoff: 200 44 REFERENCE VALUE Cutoff: 100 45 REFERENCE VALUE Cutoff: 150 46 ADDITIONAL INFORMATION This report is intended for use in clinical monitoring or management of patients. It is not intended for use in employment-related testing. 47 REFERENCE VALUE Cutoff: 200 mg/L 48 Tylenol 3 49 Metabolite of codeine REFERENCE VALUE Cutoff: 100 50 Ledy Smiley MS Contin; Also a minor metabolite (10%) of codeine and can be seen in low concentrations (<2,000 ng/mL) with poppy seed ingestion. 51 Metabolite of morphine REFERENCE VALUE Cutoff: 100 52 Metabolite of heroin 53 Lortab, [place], Vicodin; Also a very minor metabolite of codeine and impurity (<1%) of oxycodone. 54 Metabolite of hydrocodone 55 Metabolite of hydrocodone 56 Dilaudid, Exalgo; Also a metabolite of hydrocodone and a minor (<5%) metabolite of morphine. 57 Metabolite of hydromorphone REFERENCE VALUE Cutoff: 100 58 Endocet, Percocet, Oxycontin 59 Metabolite of oxycodone 60 Numorphan, Opana; Also a metabolite of oxycodone. 61 Metabolite of oxymorphone REFERENCE VALUE Cutoff: 100 62 Metabolite of oxymorphone 63 Actiq, Duragesic, Fentora 64 Metabolite of fentanyl 65 Demerol 66 Metabolite of meperidine 67 Narcan 68 Metabolite of naloxone REFERENCE VALUE Cutoff: 100 69 Dolophine 70 Metabolite of methadone 71 Darvon, Darvocet 72 Metabolite of propoxyphene 73 Tradol, Ultram, Ultracet 74 Metabolite of tramadol 75 Nucynta 76 Metabolite of tapentadol 77 Metabolite of tapentadol REFERENCE VALUE Cutoff: 100 78 Buprenex, Suboxone 79 Metabolite of buprenorphine 80 Metabolite of buprenorphine 81 Test detected the presence of buprenorphine metabolites (norbuprenorphine and norbuprenorphine glucuronide) along with naloxone metabolites (xpoiqfue-6-uvmu-glucuronide and noroxymorphone/nornaloxone). Suspect use of buprenorphine with naloxone (e.g. Suboxone) within the past three days. ADDITIONAL INFORMATION This test was developed and its performance characteristics determined by [facility] in a manner consistent with CLIA requirements. This test has not been cleared or approved by the U.S. Food and Drug Administration. Test Performed by: [facility] [address] [place] [id number] 82 REFERENCE VALUE Cutoff: 500 83 REFERENCE VALUE Cutoff: 200 84 REFERENCE VALUE Cutoff: 100 85 REFERENCE VALUE Cutoff: 150 86 ADDITIONAL INFORMATION This report is intended for use in clinical monitoring or management of patients. It is not intended for use in employment-related testing. 87 REFERENCE VALUE Cutoff: 200 mg/L 88 Tylenol 3 89 Metabolite of codeine REFERENCE VALUE Cutoff: 100 90 Ledy Smiley, Contin; Also a minor metabolite (10%) of codeine and can be seen in low concentrations (<2,000 ng/mL) with poppy seed ingestion. 91 Metabolite of morphine REFERENCE VALUE Cutoff: 100 92 Metabolite of heroin 93 Lortab, [place], Vicodin; Also a very minor metabolite of codeine and impurity (<1%) of oxycodone. 94 Metabolite of hydrocodone 95 Metabolite of hydrocodone 96 Dilaudid, Exalgo; Also a metabolite of hydrocodone and a minor (<5%) metabolite of morphine. 97 Metabolite of hydromorphone REFERENCE VALUE Cutoff: 100 98 Endocet, Percocet, Oxycontin 99 Metabolite of oxycodone 100 Numorphan, Opana; Also a metabolite of oxycodone. 101 Metabolite of oxymorphone REFERENCE VALUE Cutoff: 100 102 Metabolite of oxymorphone 103 Actiq, Duragesic, Fentora 104 Metabolite of fentanyl 105 Demerol 106 Metabolite of meperidine 107 Narcan 108 Metabolite of naloxone REFERENCE VALUE Cutoff: 100 109 Dolophine 110 Metabolite of methadone 111 Darvon, Darvocet 112 Metabolite of propoxyphene 113 Tradol, Ultram, Ultracet 114 Metabolite of tramadol 115 Nucynta 116 Metabolite of tapentadol 117 Metabolite of tapentadol REFERENCE VALUE Cutoff: 100 118 Buprenex, Suboxone 119 Metabolite of buprenorphine 120 Metabolite of buprenorphine 121 Test detected the presence of norbuprenorphine and norbuprenorphine glucuronide which are metabolites of buprenorphine. Suspect use of buprenorphine within the past three days. ADDITIONAL INFORMATION This test was developed and its performance characteristics determined by [facility] in a manner consistent with CLIA requirements. This test has not been cleared or approved by the U.S. Food and Drug Administration. Test Performed by: [facility] [address] [facility], [place] [address] 122 REFERENCE VALUE Cutoff: 500 123 REFERENCE VALUE Cutoff: 200 124 REFERENCE VALUE Cutoff: 100 125 REFERENCE VALUE Cutoff: 150 126 ADDITIONAL INFORMATION This report is intended for use in clinical monitoring or management of patients. It is not intended for use in employment-related testing. 127 REFERENCE VALUE Cutoff: 200 mg/L 128 Tylenol 3 129 Metabolite of codeine REFERENCE VALUE Cutoff: 100 130 Ledy Smiley, Contin; Also a minor metabolite (10%) of codeine and can be seen in low concentrations (<2,000 ng/mL) with poppy seed ingestion. 131 Metabolite of morphine REFERENCE VALUE Cutoff: 100 132 Metabolite of heroin 133 Lortab, [place], Vicodin; Also a very minor metabolite of codeine and impurity (<1%) of oxycodone. 134 Metabolite of hydrocodone 135 Metabolite of hydrocodone 136 Dilaudid, Exalgo; Also a metabolite of hydrocodone and a minor (<5%) metabolite of morphine. 137 Metabolite of hydromorphone REFERENCE VALUE Cutoff: 100 138 Endocet, Percocet, Oxycontin 139 Metabolite of oxycodone 140 Numorphan, Opana; Also a metabolite of oxycodone. 141 Metabolite of oxymorphone REFERENCE VALUE Cutoff: 100 142 Metabolite of oxymorphone 143 Actiq, Duragesic, Fentora 144 Metabolite of fentanyl 145 Demerol 146 Metabolite of meperidine 147 Narcan 148 Metabolite of naloxone REFERENCE VALUE Cutoff: 100 149 Dolophine 150 Metabolite of methadone 151 Darvon, Darvocet 152 Metabolite of propoxyphene 153 Tradol, Ultram, Ultracet 154 Metabolite of tramadol 155 Nucynta 156 Metabolite of tapentadol 157 Metabolite of tapentadol REFERENCE VALUE Cutoff: 100 158 Buprenex, Suboxone 159 Metabolite of buprenorphine 160 Metabolite of buprenorphine 161 Test detected the presence of norbuprenorphine and norbuprenorphine glucuronide which are metabolites of buprenorphine. Suspect use of buprenorphine within the past three days. Test detected the presence of gdcidmkr-5-qctb-glucuronide (metabolite of naloxone) only. Suspect use of naloxone (Narcan) within the past three days. ADDITIONAL INFORMATION This test was developed and its performance characteristics determined by [facility] in a manner consistent with CLIA requirements. This test has not been cleared or approved by the U.S. Food and Drug Administration. Test Performed by: [facility] [address] [place] [address] 162 SEE RESULT BELOW Name: MARIE ALONSO : [address]: Katelyn Benitez MD Acct: [id number] Unit: [id number] AGE: 22 Location: [facility] Re05/25/17 SEX: F Status: REG REF SPEC: [id number] CARYN: 05/25/17-[address] [facility] [address]: Hawk Benitez MD REQ: [id number] RECD: [id number] STATUS: SOUT _ ORDERED: TP IMAGE ANAL COMMENTS: [id number] FINAL DIAGNOSIS Negative for Intraepithelial lesion or [...] [facility]. Signed (signature on file) RENATE Samayoa(ASC) 05/26 1423 This Pap test was evaluated with the assistance of the Alo7Prep Test Imaging System. Due to cytologic findings at the pipe threader microscope, comprehensive manual rescreening by a Redipper may be required. The Pap Smear is [...] performed at [facility] DEPARTMENT OF PATHOLOGY, [address] [place] [address] Spencer Rehman M.D. Director ADARSH # [id number] 163 REFERENCE VALUE Cutoff: 500 164 REFERENCE VALUE Cutoff: 200 165 REFERENCE VALUE Cutoff: 100 166 REFERENCE VALUE Cutoff: 150 167 ADDITIONAL INFORMATION This report is intended for use in clinical monitoring or management of patients. It is not intended for use in employment-related testing. 168 REFERENCE VALUE Cutoff: 200 mg/L 169 Tylenol 3 170 Metabolite of codeine REFERENCE VALUE Cutoff: 100 171 Ledy Smiley, MS Contin; Also a minor metabolite (10%) of codeine and can be seen in low concentrations (<2,000 ng/mL) with poppy seed ingestion. 172 Metabolite of morphine REFERENCE VALUE Cutoff: 100 173 Metabolite of heroin 174 Lortab, [place], Vicodin; Also a very minor metabolite of codeine and impurity (<1%) of oxycodone. 175 Metabolite of hydrocodone 176 Metabolite of hydrocodone 177 Dilaudid, Exalgo; Also a metabolite of hydrocodone and a minor (<5%) metabolite of morphine. 178 Metabolite of hydromorphone REFERENCE VALUE Cutoff: 100 179 Endocet, Percocet, Oxycontin 180 Metabolite of oxycodone 181 Numorphan, Opana; Also a metabolite of oxycodone. 182 Metabolite of oxymorphone REFERENCE VALUE Cutoff: 100 183 Metabolite of oxymorphone 184 Actiq, Duragesic, Fentora 185 Metabolite of fentanyl 186 Demerol 187 Metabolite of meperidine 188 Narcan 189 Metabolite of naloxone REFERENCE VALUE Cutoff: 100 190 Dolophine 191 Metabolite of methadone 192 Darvon, Darvocet 193 Metabolite of propoxyphene 194 Tradol, Ultram, Ultracet 195 Metabolite of tramadol 196 Nucynta 197 Metabolite of tapentadol 198 Metabolite of tapentadol REFERENCE VALUE Cutoff: 100 199 Buprenex, Suboxone 200 Metabolite of buprenorphine 201 Metabolite of buprenorphine 202 Test detected the presence of buprenorphine and its metabolites (norbuprenorphine, norbuprenorphine glucuronide). Suspect use of buprenorphine within the past three days. Test detected the presence of tidylodd-7-ihly-glucuronide (metabolite of naloxone) only. Suspect use of naloxone (Narcan) within the past three days. ADDITIONAL INFORMATION This test was developed and its performance characteristics determined by [facility] in a manner consistent with CLIA requirements. This test has not been cleared or approved by the U.S. Food and Drug Administration. Test Performed by: [facility] [address] [place] [address] 203 REFERENCE VALUE Cutoff: 500 204 REFERENCE VALUE Cutoff: 200 205 REFERENCE VALUE Cutoff: 100 206 REFERENCE VALUE Cutoff: 150 207 Presumptive Positive Drug confirmation to follow. Presumptive Positive means that the screening method is positive, but the test needs to be run by a confirmatory method before being finalized. ADDITIONAL INFORMATION This report is intended for use in clinical monitoring or management of patients. It is not intended for use in employment-related testing. 208 REFERENCE VALUE Cutoff: 200 mg/L 209 Tylenol 3 210 Metabolite of codeine REFERENCE VALUE Cutoff: 100 211 Ledy Smiley MS Contin; Also a minor metabolite (10%) of codeine and can be seen in low concentrations (<2,000 ng/mL) with poppy seed ingestion. 212 Metabolite of morphine REFERENCE VALUE Cutoff: 100 213 RESULT: Results not available due to analyte specific failure. 214 Lortab, [place], Vicodin; Also a very minor metabolite of codeine and impurity (<1%) of oxycodone. 215 Metabolite of hydrocodone 216 Metabolite of hydrocodone 217 Dilaudid, Exalgo; Also a metabolite of hydrocodone and a minor (<5%) metabolite of morphine. 218 Metabolite of hydromorphone REFERENCE VALUE Cutoff: 100 219 Endocet, Percocet, Oxycontin 220 Metabolite of oxycodone 221 Numorphan, Opana; Also a metabolite of oxycodone. 222 Metabolite of oxymorphone REFERENCE VALUE Cutoff: 100 223 Metabolite of oxymorphone 224 Actiq, Duragesic, Fentora 225 Metabolite of fentanyl 226 Demerol 227 Metabolite of meperidine 228 Narcan 229 Metabolite of naloxone REFERENCE VALUE Cutoff: 100 230 Dolophine 231 Metabolite of methadone 232 Darvon, Darvocet 233 Metabolite of propoxyphene 234 Tradol, Ultram, Ultracet 235 Metabolite of tramadol 236 Nucynta 237 Metabolite of tapentadol 238 Metabolite of tapentadol REFERENCE VALUE Cutoff: 100 239 Buprenex, Suboxone 240 Metabolite of buprenorphine 241 Metabolite of buprenorphine 242 Test detected the presence of norbuprenorphine and norbuprenorphine glucuronide which are metabolites of buprenorphine. Suspect use of buprenorphine within the past three days. Test detected the presence of dbrwwgls-6-zwnz-glucuronide (metabolite of naloxone) only. Suspect use of naloxone (Narcan) within the past three days. ADDITIONAL INFORMATION This test was developed and its performance characteristics determined by [facility] in a manner consistent with CLIA requirements. This test has not been cleared or approved by the U.S. Food and Drug Administration. Test Performed by: [facility] [address] [place] [address] 243 REFERENCE VALUE Cutoff: 3.0 244 ADDITIONAL INFORMATION This report is intended for use in clinical monitoring and management of patients. It is not intended for use in employment-related testing. This test was developed and its performance characteristics determined by [facility] in a manner consistent with CLIA requirements. This test has not been cleared or approved by the U.S. Food and Drug Administration. Test Performed by: [facility] - [address] [address] 245 [id number] SEE RESULT BELOW Name: MARIE ALONSO : [address]: Katelyn Benitez MD Acct: [id number] Unit: [id number] AGE: 21 [facility] [facility] Re12/16/16 SEX: F Status: REG REF SPEC: [id number] CARYN: 12/16/16-[address] [facility] [address]: Hawk Benitez MD REQ: [id number] RECD: 12/16/16 STATUS: COMP _ SOURCE: URINE SPDESC: ORDERED: Urine Culture Procedure Result Reported Site Urine Culture Final 12/18/16- 08 ML No Growth (<1,000 CFU/mL) * ML - MAIN LAB ([facility]) . END OF REPORT * ML=Testing performed at Main Lab DEPARTMENT OF PATHOLOGY, [address] [place] [address] Spencer Rehman M.D. Director ERROL # [id number] 247 REFERENCE VALUE Cutoff: 3.0 248 ADDITIONAL INFORMATION This report is intended for use in clinical monitoring and management of patients. It is not intended for use in employment-related testing. This test was developed and its performance characteristics determined by [facility] in a manner consistent with CLIA requirements. This test has not been cleared or approved by the U.S. Food and Drug Administration. Test Performed by: [facility] [address] [place] [address] 249 REFERENCE VALUE Cutoff: 500 250 REFERENCE VALUE Cutoff: 200 251 REFERENCE VALUE Cutoff: 100 252 REFERENCE VALUE Cutoff: 150 253 Presumptive Positive Drug confirmation to follow. Presumptive Positive means that the screening method is positive, but the test needs to be run by a confirmatory method before being finalized. ADDITIONAL INFORMATION This report is intended for use in clinical monitoring or management of patients. It is not intended for use in employment-related testing. 254 REFERENCE VALUE Cutoff: 200 mg/L 255 Tylenol 3 256 Metabolite of codeine REFERENCE VALUE Cutoff: 100 257 Ledy Smiley, Contin; Also a minor metabolite (10%) of codeine and can be seen in low concentrations (<2,000 ng/mL) with poppy seed ingestion. 258 Metabolite of morphine REFERENCE VALUE Cutoff: 100 259 Metabolite of heroin 260 Lortab, [place], Vicodin; Also a very minor metabolite of codeine and impurity (<1%) of oxycodone. 261 Metabolite of hydrocodone 262 Metabolite of hydrocodone 263 Dilaudid, Exalgo; Also a metabolite of hydrocodone and a minor (<5%) metabolite of morphine. 264 Metabolite of hydromorphone REFERENCE VALUE Cutoff: 100 265 Endocet, Percocet, Oxycontin 266 Metabolite of oxycodone 267 Numorphan, Opana; Also a metabolite of oxycodone. 268 Metabolite of oxymorphone REFERENCE VALUE Cutoff: 100 269 Metabolite of oxymorphone 270 Actiq, Duragesic, Fentora 271 Metabolite of fentanyl 272 Demerol 273 Metabolite of meperidine 274 Narcan 275 Metabolite of naloxone REFERENCE VALUE Cutoff: 100 276 Dolophine 277 Metabolite of methadone 278 Darvon, Darvocet 279 Metabolite of propoxyphene 280 Tradol, Ultram, Ultracet 281 Metabolite of tramadol 282 Nucynta 283 Metabolite of tapentadol 284 Metabolite of tapentadol REFERENCE VALUE Cutoff: 100 285 Buprenex, Suboxone 286 Metabolite of buprenorphine 287 Metabolite of buprenorphine 288 Test detected the presence of norbuprenorphine and norbuprenorphine glucuronide which are metabolites of buprenorphine. Suspect use of buprenorphine within the past three days. Test detected the presence of ueryjben-0-ykyz-glucuronide (metabolite of naloxone) only. Suspect use of naloxone (Narcan) within the past three days. ADDITIONAL INFORMATION This test was developed and its performance characteristics determined by [facility] in a manner consistent with CLIA requirements. This test has not been cleared or approved by the U.S. Food and Drug Administration. Test Performed by: [facility] [place] [id number] [phone] Test Performed by: [facility] [place] [address] 290 Because ethnic data is not always readily [...] 15-29 5 Kidney failure <15 (or dialysis) 291 Please note: The following may produce a false positive D Dimer test: - Rheumatoid factor greater than 60 IU/ml - Plasma hemoglobin greater than 0.05 gm/dl - Bilirubin greater than 50 mg/dl - Lipids greater than 1000 mg/dl - FDP greater than 20 ug/ml 292 99th percentile=0.04 ng/mL Troponin results at [facility] and [facility] are not interchangeable. 293 REFERENCE VALUE Cutoff: 500 294 REFERENCE VALUE Cutoff: 200 295 REFERENCE VALUE Cutoff: 100 296 REFERENCE VALUE Cutoff: 150 297 Presumptive Positive Drug confirmation to follow. Presumptive Positive means that the screening method is positive, but the test needs to be run by a confirmatory method before being finalized. ADDITIONAL INFORMATION This report is intended for use in clinical monitoring or management of patients. It is not intended for use in employment-related testing. 298 REFERENCE VALUE Cutoff: 200 mg/L 299 Tylenol 3 300 Metabolite of codeine REFERENCE VALUE Cutoff: 100 301 Ledy Smiley, Contin; Also a minor metabolite (10%) of codeine and can be seen in low concentrations (<2,000 ng/mL) with poppy seed ingestion. 302 Metabolite of morphine REFERENCE VALUE Cutoff: 100 303 Metabolite of heroin 304 Lortab, [place], Vicodin; Also a very minor metabolite of codeine and impurity (<1%) of oxycodone. 305 Metabolite of hydrocodone 306 Metabolite of hydrocodone 307 Dilaudid, Exalgo; Also a metabolite of hydrocodone and a minor (<5%) metabolite of morphine. 308 Metabolite of hydromorphone REFERENCE VALUE Cutoff: 100 309 Endocet, Percocet, Oxycontin 310 Metabolite of oxycodone 311 Numorphan, Opana; Also a metabolite of oxycodone. 312 Metabolite of oxymorphone REFERENCE VALUE Cutoff: 100 313 Metabolite of oxymorphone 314 Actiq, Duragesic, Fentora 315 Metabolite of fentanyl 316 Demerol 317 Metabolite of meperidine 318 Narcan 319 Metabolite of naloxone REFERENCE VALUE Cutoff: 100 320 Dolophine 321 Metabolite of methadone 322 Darvon, Darvocet 323 Metabolite of propoxyphene 324 Tradol, Ultram, Ultracet 325 Metabolite of tramadol 326 Nucynta 327 Metabolite of tapentadol 328 Metabolite of tapentadol REFERENCE VALUE Cutoff: 100 329 Buprenex, Suboxone 330 Metabolite of buprenorphine 331 Metabolite of buprenorphine 332 Test detected the presence of isymkoub-0-uiwl-glucuronide (metabolite of morphine) only. Suspect use of [...] developed and its performance characteristics determined by [facility] in a manner consistent with CLIA requirements. This test has not been cleared or approved by the U.S. Food and Drug Administration. Test Performed by: [facility] [place] [address] Barrel Rib Matting Machine Operator: Wilbert Russ II, M.D., Ph.D. 333 REFERENCE VALUE Cutoff: 3.0 334 ADDITIONAL INFORMATION This report is intended for use in clinical monitoring and management of patients. It is not intended for use in employment-related testing. This test was developed and its performance characteristics determined by [facility] in a manner consistent with CLIA requirements. This test has not been cleared or approved by the U.S. Food and Drug Administration. Test Performed by: [facility] [place] [address] [employer] Matting Machine Operator: Wilbert Russ II, M.D., Ph.D. 335 Because ethnic data is not always readily [...] Kidney failure <15 (or dialysis) Procedures Date Code Description Status 03/13/2017 25043 Destruction Of Benign Lesions Any Method 1-14 lesions Completed 12/27/2016 30516 Plethysmography Determination Lung Volumes & Per Airway Completed Resist 12/27/2016 98239 Pulmonary Function><Bronchodil Completed Encounters Type Date Location Provider Dx Diagnosis Office Visit 08/30/2018 [facility] Internal Hawk De La Vega F11.21 Opioid dependence , 2:00p Matt Benitez M.D.,FACP in [address] Rd F31.70 Bipolar disord, currently in remis, most recent episode unsp N60.01 Solitary cyst of right breast Office Visit 06/29/2018 8:30a [facility] Jass De La Vega F11.21 Opioid Matt Benitez M.D.,FACP dependence, in [address] remission F31.70 Bipolar disord, currently in remis, most recent episode unsp Z23 Encounter for immunization Office Visit 04/27/2018 8:40a [facility] Jass De La [place]ega J40 Bronchitis, not Matt Benitez M.D.,FACP specified as acute Rd or chronic F11.21 Opioid dependence, in remission Office Visit 03/22/2018 9:40a [facility] Jass De La Vega F11.21 Opioid Matt Benitez M.D.,FACP dependence, in [address] remission J40 Bronchitis, not specified as acute or chronic F17.210 Nicotine dependence, cigarettes, uncomplicated Office Visit 01/10/2018 10:20a [facility] Jass De La [place]ega F11.21 Opioid Matt Benitez M.D.,FACP dependence, in [address] remission F31.70 Bipolar disord, currently in remis, most recent episode unsp Office Visit 11/29/2017 12:00p [facility] Jass De La [place]ega F11.21 Opioid Matt Benitez M.D.,FACP dependence, in [address] remission F31.70 Bipolar disord, currently in remis, most recent episode unsp Z23 Encounter for immunization Office Visit 08/23/2017 2:10p [facility] Internal Hawk De La Vega F11.21 Opioid Matt Benitez M.D.,FACP dependence, in [address] remission 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 Office Visit 07/06/2017 10:20a [facility] Internal Hawk De La [place]ega F11.21 Opioid Matt Benitez M.D.,FACP dependence, in [address] remission F17.210 Nicotine dependence, cigarettes, uncomplicated Z23 Encounter for immunization Office Visit 05/25/2017 1:00p [facility] Internal Hawk De La [place]ega Z00.01 Encounter for Matt Benitez M.D.,FACP general adult [address] medical exam w abnormal findings F17.210 Nicotine dependence, cigarettes, uncomplicated F11.21 Opioid dependence, in remission Z01.419 Encntr for measuring machine tender exam (general) (routine) w/o abn findings R19.00 Intra-abd and pelvic swelling, mass and lump, unsp site Z23 Encounter for immunization Office Visit 04/24/2017 2:40p [facility] Hawk De La [place]ega F11.21 Opioid Matt Benitez M.D.,FACP dependence, in [address] remission B07.8 Other viral warts Office Visit 03/13/2017 [facility] Ton Worthy, I78.1 Nevus, 1:30p non-neoplastic L81.4 Other melanin hyperpigmentation B07.8 Other viral warts L53.8 Other specified erythematous conditions Z78.9 Other specified health status L08.89 Oth local infections of the skin and subcutaneous tissue S60.943A Unsp superficial injury of left middle finger, init encntr S60.912A Unspecified superficial injury of left wrist, init encntr S60.922A Unspecified superficial injury of left hand, init encntr Office Visit 03/08/2017 [facility] Hawk De La Vega F11.19 Opioid abuse with 2:20p Matt Benitez M.D.,FACP unspecified [address] opioid-induced disorder B07.9 Viral wart, unspecified Office Visit 01/27/2017 [facility] Hawk De La [place]ega F11.19 Opioid abuse with 2:30p Matt Benitez M.D.,FACP unspecified [address] opioid-induced disorder F31.0 Bipolar disorder, current episode hypomanic F17.210 Nicotine dependence, cigarettes, uncomplicated Office Visit 12/16/2016 11:40a [facility] Hawk De La Vega R06.00 Dyspnea, Matt Benitez M.D.,FACP unspecified [address] F17.210 Nicotine dependence, cigarettes, uncomplicated F11.19 Opioid abuse with unspecified opioid-induced disorder Office Visit 11/14/2016 [facility] Hawk De La [place]ega E05.90 Thyrotoxicosis, unsp 11:50a Matt Benitez M.D.,FACP without thyrotoxic [address] crisis or storm F11.19 Opioid abuse with unspecified opioid-induced disorder N39.0 Urinary tract infection, site not specified Office Visit 10/17/2016 [facility] Hawk De La Vega F11.19 Opioid abuse with 2:50p Matt Benitez M.D.,FACP unspecified [address] opioid-induced disorder E05.90 Thyrotoxicosis, unsp without thyrotoxic crisis or storm Office Visit 10/13/2016 [facility] Hawk De La Vega F11.19 Opioid abuse with 4:20p Matt Benitez M.D.,FACP unspecified [address] opioid-induced disorder Office Visit 10/03/2016 [facility] Hawk De La [place]ega F31.0 Bipolar disorder, 1:40p Matt Benitez M.D.,FACP current episode [address] hypomanic F11.21 Opioid dependence, in remission Z23 Encounter for immunization Office Visit 09/02/2016 2:20p [facility] Hawk De La [place]ega F41.9 Anxiety disorder, Matt Benitez M.D.,FACP unspecified [address] F11.21 Opioid dependence, in remission Office Visit 08/23/2016 11:00a [facility] Internal Abhi Boyd F41.9 Anxiety disorder, Matt Fleming M.D. 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 COMMERCIAL ADMINISTRATOR reviewed, patient not obtaining opiates through other providers. Follow up with counseling. UDS up to date. Call us if you need refills.F31.70 Bipolar disorder, currently in remission, most recent episodComments:Continue taking current medications as prescribed.N60.01 Solitary cyst of right breastComments:Advised hot compress. Begin taking Doxycycline as prescribed. Follow up with Dr. Ravi as discussed.Referral:Venita Ravi MD, Surgery,General
--- NOTE | 2018-09-13 13:21 | UC ---
Dental HPI - HPI Summary HPI Summary: 23 y/o female presents to the urgent care c/o pt with swelling in her left jaw, with pain up into her ear, causing nausea and some dizziness. no sob, or difficulty breathing. - History of Current Complaint Stated Complaint: DENTAL PAIN Time Seen by Provider: 09/13/18 13:19 Hx Obtained From: Patient Hx Last Menstrual Period: IUD ?: No Onset/Duration: Gradual Onset, Lasting Days - 3 days, Still Present, Worse Since - 1 day w/ nausea Severity: Moderate Pain Intensity: 5 Pain Scale Used: 0-10 Numeric Aggravating Factor(s): Chewing, Other - swelling on left lower jaw Alleviating Factor(s): OTC Meds Related History: Swelling, Other - fracture molar - Allergies/Home Medications Allergies/Adverse Reactions: Allergies Allergy/AdvReac Type Severity Reaction Status Date / Time codeine Allergy Pain Verified 09/13/18 13:29 sertraline [From Zoloft] Allergy Hives Verified 09/13/18 13:29 PMH/Surg Hx/FS Hx/Imm Hx Previously Healthy: Yes Respiratory History: Asthma - Surgical History Surgical History: None Surgery Procedure, Year, and Place: Tonsillectomy 2009 - Family History Family History: dyslipidemia - Social History Occupation: Employed Full-time Lives: With Family Alcohol Use: None Substance Use Type: None Substance Use Comment - Amount & Last Used: former narcotic abuser Smoking Status (MU): Light Every Day Tobacco Smoker Type: Cigarettes Amount Used/How Often: 1-2 daily Length of Time of Smoking/Using Tobacco: years Have You Smoked in the Last Year: Yes Household Exposure Type: Cigarettes - Immunization History Most Recent Influenza Vaccination: unknown Most Recent Tetanus Shot: 02/25/14 Most Recent Pneumonia Vaccination: none Review of Systems All Other Systems Reviewed And Are Negative: Yes Constitutional: Positive: Negative Skin: Positive: Negative Eyes: Positive: Negative ENT: Positive: Dental Pain - left lower jaw w/ swelling w/ a fracture molar and cavities Respiratory: Positive: Negative Cardiovascular: Positive: Negative Gastrointestinal: Positive: Nausea Motor: Positive: Negative Neurovascular: Positive: Negative Musculoskeletal: Positive: Negative Neurological: Positive: Negative Psychological: Positive: Negative Is Patient Immunocompromised?: No Physical Exam - Summary Physical Exam Summary: Vital Signs Reviewed: Yes General: Well-Appearing, Well-Nourished female sitting in the examining table w /o any respiratory or pain distress Eyes: Positive: Conjunctiva Clear - PERRLA, EOMI, ENT: Positive: Normal ENT inspection, Hearing grossly normal, Pharynx normal, TMs normal - B/L external ear canals clear,. Negative: Tonsillar swelling, Tonsillar exudate, Trismus Dental: Positive: Gross Decay/Caries w/ fracture molars #19 , Abscess @ - gingival swelling and erythema, tender to percussion. involves tissue surrounding the teeth #19, Cervical Lymphadenopathy - anterior Neck: Positive: Supple Respiratory: Positive: Chest non-tender, Lungs clear, Normal breath sounds, No respiratory distress Cardiovascular: Positive: RRR, No Murmur, Pulses Normal, Brisk Capillary Refill Abdomen Description: Positive: Nontender, No Organomegaly, Soft. Negative: CVA Tenderness (R), CVA Tenderness (L) Bowel Sounds: Positive: Present Musculoskeletal: Positive: Strength Intact, ROM Intact, No Edema Neurological Exam: Normal Psychological Exam: Normal Skin Exam: Normal Triage Information Reviewed: Yes Dental Complaint Course/Dx - Differential Dx/Diagnosis Provider Diagnosis: Dental abscess, Dental cavities, Nausea alone Discharge - Sign-Out/Discharge Documenting (check all that apply): Patient Departure - d/c home All imaging exams completed and their final reports reviewed: No Studies - Discharge Plan Condition: Stable Disposition: HOME Prescriptions: Clindamycin Cap(NF) [Clindamycin Cap 300 mg Cap(NF)] 300 mg PO Q6H #40 cap Ibuprofen TAB* [Motrin TAB* 600 MG] 600 mg PO Q6H PRN #30 tab PRN Reason: dental pain Lidocaine 2% VISCOUS* [Xylocaine 2% Viscous*] 15 ml SWISH SPIT Q6H PRN #1 btl PRN Reason: dental pain Patient Education Materials: Dental Abscess (ED), Acute Nausea and Vomiting (ED ) Referrals: Hawk Benitez MD [Primary Care Provider] - 3 Days Additional Instructions: 1-Please take full course of antibiotic to avoid resistance. 2- Take Ibuprofen Po q6-8hrs prn as instructed after meals to alleviate pain and swelling. If pain is not alleviated you can take Tylenol PO q6-8hrs alternating. 3- F/u with your Dentist or Dental List provided as soon as possible for further treatment. 4- Take Zofran PO as directed to alleviate nausea. Increase fluid intake, eat soft meals and avoid strenuous exercise. rest 5- If symptoms do not improve or worsen please return to the urgent care or f/u with your PCP in 3 days for further evaluation and treatment 6- If you develop fever and severe dental pain and swelling please go immediately to the ER for further evaluation and treatment - Billing Disposition and Condition Condition: STABLE Disposition: Home
[2018-09-13 13:29] VITALS: BP 118/65
[2018-09-13] MEDS: Ondansetron ODT TAB* 4 MG PO ONE (13:56)
[2018-09-13] MEDS: Lidocaine 2% VISCOUS* 15 ML UDC PO ONE (13:56)
[2018-09-13] MEDS: Ibuprofen TAB* 600 MG PO ONE (13:56)
== END 2018-09-13 14:13 | disposition home or self-care (01) ==
LOC: UCEAST 12:57
DX: K04.7 Periapical abscess without sinus (principal); K02.9 Dental caries, unspecified; R11.0 Nausea; Z88.5 Allergy status to narcotic agent; Z88.8 Allergy status to other drugs, medicaments and biological substances; F17.210 Nicotine dependence, cigarettes, uncomplicated
CPT/HCPCS: 99212; A9270-GY; G0463

== ENCOUNTER 2019-01-18 17:35 | Emergency (ER) | payer BC ==
[2019-01-18 17:44] VITALS: BP 138/78
--- NOTE | 2019-01-18 18:00 | UC ---
Headache HPI - HPI Summary HPI Summary: 23-year-old female with history of depression and opiate abuse currently on Suboxone therapy presents with fever to 101.7, headache and neck pain with stiffness that began this morning. She is very uncomfortable with tears present. She denies any sore throat, runny nose, ear pain or blurred vision. She denies nausea or vomiting and has no personal history of migraine or other headache syndromes. - History Of Current Complaint Chief Complaint: UCUpperExtremity Stated Complaint: NECK PAIN Time Seen by Provider: 01/18/19 17:40 Hx Obtained From: Patient, Family/[employer] Hx Last Menstrual Period: 01/16/2019 Pain Intensity: 10 - Allergies/Home Medications Allergies/Adverse Reactions: Allergies Allergy/AdvReac Type Severity Reaction Status Date / Time codeine Allergy Pain Verified 09/13/18 13:29 sertraline [From Zoloft] Allergy Hives Verified 09/13/18 13:29 PMH/Surg Hx/FS Hx/Imm Hx Endocrine History: Other - Opiate use Psychological History: Depression - Surgical History Surgical History: None Surgery Procedure, Year, and Place: Tonsillectomy 2008 - Family History Known Family History: Positive: None, Other - No others acutely ill Family History: dyslipidemia - Social History Lives: With Family Alcohol Use: None Substance Use Type: None Substance Use Comment - Amount & Last Used: former narcotic abuser Smoking Status (MU): Light Every Day Tobacco Smoker Type: Cigarettes Amount Used/How Often: 1-2 daily Length of Time of Smoking/Using Tobacco: years Have You Smoked in the Last Year: Yes Household Exposure Type: Cigarettes - Immunization History Most Recent Influenza Vaccination: unknown Most Recent Tetanus Shot: 02/25/14 Most Recent Pneumonia Vaccination: none Review of Systems All Other Systems Reviewed And Are Negative: Yes Constitutional: Positive: Fever, Chills, Fatigue Skin: Positive: Negative Eyes: Positive: Negative ENT: Negative: Sore Throat, Ear Ache, Nasal Discharge, Sinus Congestion, Sinus Pain/Tenderness Respiratory: Positive: Negative Cardiovascular: Positive: Negative Gastrointestinal: Positive: Negative Neurological: Positive: Headache. Negative: Paresthesia, Numbness Physical Exam Appearance: Pain Distress Vital Signs: Initial Vital Signs Temp 99.5 F 01/18/19 17:38 Pulse 105 01/18/19 17:38 Resp 16 01/18/19 17:38 BP 138/78 01/18/19 17:38 Pulse Ox 99 01/18/19 17:38 Eyes: Positive: Conjunctiva Clear ENT: Positive: Pharynx normal, TMs normal. Negative: Nasal congestion, Sinus tenderness Neck: Positive: No Lymphadenopathy, Other: - Meningismus without rigidity Respiratory: Positive: Lungs clear Cardiovascular: Positive: Tachycardia Abdomen Description: Positive: Nontender Musculoskeletal Exam: Normal Psychological: Positive: Other: - Tearful Skin: Negative: Rashes Headache Course/Dx - Course Course Of Treatment: Patient with reported fever to 101.7 with meningismus on exam. She will need to be transferred to the ER for further care. I spoke with Dr. Monterroso who is expecting her. The patient and her mother will go by private vehicle to the ER. - Differential Dx/Diagnosis Differential Diagnosis/HQI/PQRI: Meningitis, Tension Headache, Viral Syndrome, Other - Epidural abscess Provider Diagnosis: Meningismus, Acute headache Discharge - Sign-Out/Discharge Documenting (check all that apply): Patient Departure All imaging exams completed and their final reports reviewed: No - Discharge Plan Condition: Stable Disposition: HOME-RECOMMEND TO ED Patient Education Materials: Acute Headache (ED) Referrals: Hawk Benitez MD [Primary Care Provider] - Additional Instructions: Go directly to the ER -- I have spoken to Evelyne the charge nurse and Dr. Monterroso. - Billing Disposition and Condition Condition: STABLE Disposition: Home-Recommend to ED
== END 2019-01-18 18:02 | disposition home health service (06) ==
LOC: UCEAST 17:35
DX: R29.1 Meningismus (principal); R51 Headache; R00.0 Tachycardia, unspecified; Z88.5 Allergy status to narcotic agent; Z88.8 Allergy status to other drugs, medicaments and biological substances; F17.210 Nicotine dependence, cigarettes, uncomplicated
CPT/HCPCS: 99211; G0463

== ENCOUNTER 2019-01-18 18:29 | Inpatient (IN) | payer BC ==
[2019-01-18 19:17] LABS: ABS Basophils 0.1 10^3/ul (0-0.2); ABS Eosinophils 0.1 10^3/ul (0-0.6); ABS Lymphocytes 3.9 10^3/ul (1.0-4.8); ABS Monocytes 0.7 10^3/ul (0-0.8); ABS Neutrophils 6.3 10^3/ul (1.5-7.7); Eosinophil % 1.1 %; Hematocrit 37 % (35-47); Hemoglobin 12.6 g/dL (12.0-16.0); Lymphocyte % 35.2 %; Mean Corpuscular HGB Conc 34 g/dL (31-36); Mean Corpuscular Hemoglobin 30 pg (27-31); Mean Corpuscular Volume 90 fL (80-97); Mean Platelet Volume 8.3 fL (7.4-10.4); Platelet Count 194 10^3/uL (150-450); Red Blood Count 4.17 10^6 /uL (3.70-4.87); Red Cell Distribution Width 13 % (10.5-15)
[2019-01-18 19:25] LABS: Activated Partial Thrombo Time 31.3 seconds (26.0-36.3); INR 0.97 (0.82-1.09)
--- NOTE | 2019-01-18 19:36 | ED ---
HPI Febrile Illness - HPI Summary HPI Summary: This patient is a 23 year old female presenting to [facility] with a chief complaint of headache since yesterday. The patient was sent here from urgent care and reports additional symptoms of back pain, neck stiffness, nausea, ear pain and fever. She denies vomiting. The patient has been taking Suboxone for a couple of years, however she states she never gets headaches. She rates her pain 10/10 in severity. Buprenorp/Nalox 8-2 MG FILM [Suboxone 8 mg-2 mg Sl Film] 1 tab PO DAILY [History Confirmed 09/13/18] Ibuprofen TAB* [Motrin TAB* 600 MG] 600 mg PO Q6H PRN #30 tab 09/13/18 [Rx] - History of Current Complaint Chief Complaint: EDHeadache Time Seen by Provider: 01/18/19 19:29 Hx Obtained From: Patient Hx Last Menstrual Period: 01/16/2019 Onset/Duration: Started Days Ago Timing: Constant Initial Severity: Severe Current Severity: Severe Pain Intensity: 10 Pain Scale Used: 0-10 Numeric Associated Signs and Symptoms: Headache, Stiff Neck - Allergy/Home Medications Allergies/Adverse Reactions: Allergies Allergy/AdvReac Type Severity Reaction Status Date / Time codeine Allergy Pain Verified 01/18/19 18:33 sertraline [From Zoloft] Allergy Hives Verified 01/18/19 18:33 PMH/Surg Hx/FS Hx/Imm Hx Endocrine/Hematology History: Denies: Hx Diabetes, Hx Thyroid Disease Cardiovascular History: Denies: Hx Hypertension Respiratory History: Reports: Hx Asthma Denies: Hx Chronic Obstructive Pulmonary Disease (COPD) GI History: Denies: Hx Ulcer Psychiatric History: Reports: Hx Anxiety - panic attacks - Surgical History Surgery Procedure, Year, and Place: Tonsillectomy 2009 Infectious Disease History: No Infectious Disease History: Reports: Hx Shingles Denies: Hx Hepatitis, Hx Human Immunodeficiency Virus (HIV), Traveled Outside the [place] in Last 30 Days - Family History Known Family History: Negative: Cardiac Disease Family History: dyslipidemia - Social History Alcohol Use: None Hx Substance Use: Yes Substance Use Type: Reports: Prescribed Substance Use Comment - Amount & Last Used: former narcotic abuser Hx Tobacco Use: Yes Smoking Status (MU): Light Every Day Tobacco Smoker Type: Cigarettes Amount Used/How Often: 1-2 daily Length of Time of Smoking/Using Tobacco: years Have You Smoked in the Last Year: Yes Review of Systems Positive: Fever Positive: Nausea. Negative: Vomiting Positive: Other - Neck stiffness, back pain Positive: Headache All Other Systems Reviewed And Are Negative: Yes Physical Exam - Summary Physical Exam Summary: VITAL SIGNS: Reviewed. GENERAL: Patient is a well-developed and nourished FEMALE who is lying comfortable in the stretcher. Patient is not in any acute respiratory distress. HEAD AND FACE: No signs of trauma. No ecchymosis, hematomas or skull depressions. No sinus tenderness. Patient is congested. EYES: PERRLA, EOMI x 2, No injected conjunctiva, no nystagmus. EARS: Hearing grossly intact. Ear canals and tympanic membranes are within normal limits. MOUTH: Oropharynx within normal limits. NECK: Supple, trachea is midline, no adenopathy, no JVD, no carotid bruit , Nuchal rigidity. CHEST: Symmetric, no tenderness at palpation LUNGS: Clear to auscultation bilaterally. No wheezing or crackles. CVS: Regular rate and rhythm, S1 and S2 present, no murmurs or gallops appreciated. ABDOMEN: Soft, non-tender. No signs of distention. No rebound no guarding, and no masses palpated. Bowel sounds are normal. EXTREMITIES: FROM in all major joints, no edema, no cyanosis or clubbing. NEURO: Alert and oriented x 3. No acute neurological deficits. Speech is normal and follows commands. SKIN: Dry and warm Triage Information Reviewed: Yes Vital Signs On Initial Exam: Initial Vitals Temp Pulse Resp BP Pulse Ox 100.2 F 104 18 162/86 100 01/18/19 18:33 01/18/19 18:33 01/18/19 18:33 01/18/19 18:33 01/18/19 18:33 Vital Signs Reviewed: Yes Procedures - Lumbar Puncture Midline Position: Sitting Aseptic Technique: Lidocaine Anesthesia Used: 2.0% Lido Spinal Needle Used: 20 Gauge Lumbar Puncture Note: Four samples collected and sent to the lab for cell count, chemistry, total protein, and culture. Diagnostics - Vital Signs Vital Signs Temp Pulse Resp BP Pulse Ox 01/18/19 18:33 100.2 F 104 18 162/86 100 - Laboratory Lab Results: Lab Results 01/18/19 01/18/19 Range/Units 19:06 19:06 WBC 11.0 H (3.5-10.8) 10^3/uL RBC 4.17 (3.70-4.87) 10^6 /uL Hgb 12.6 (12.0-16.0) g/dL Hct 37 (35-47) % MCV 90 (80-97) fL MCH 30 (27-31) pg MCHC 34 (31-36) g/dL RDW 13 (10.5-15) % Plt Count 194 (150-450) 10^3/uL MPV 8.3 (7.4-10.4) fL Neut % (Auto) 57.2 % Lymph % (Auto) 35.2 % [place] % (Auto) 6.0 % Eos % (Auto) 1.1 % Baso % (Auto) 0.5 % Absolute Neuts (auto) 6.3 (1.5-7.7) 10^3/ul Absolute Lymphs (auto) 3.9 (1.0-4.8) 10^3/ul Absolute Monos (auto) 0.7 (0-0.8) 10^3/ul Absolute Eos (auto) 0.1 (0-0.6) 10^3/ul Absolute Basos (auto) 0.1 (0-0.2) 10^3/ul Absolute Nucleated RBC 0.0 10^3/ul Nucleated RBC % 0.0 INR (Anticoag Therapy) 0.97 (0.82-1.09) APTT 31.3 (26.0-36.3) seconds Result Diagrams: 01/18/19 19:06 01/18/19 19:06 Lab Statement: Any lab studies that have been ordered have been reviewed, and results considered in the medical decision making process. - CT Brain CT Interpretation Completed By: Radiologist Summary of CT Findings: Normal noncontrast head CT. ED Provider has reviewed this report. Sinuses CT Interpretation Completed By: Radiologist Summary of CT Findings: No CT findings to correlate with patient's symptomatology. Specifically no paranasal sinusitis. ED Provider has reviewed this report. Course/Dx - Course Course Of Treatment: This patient is a 23 year old female presenting to [facility] with a chief complaint of headache since yesterday. A lumbar puncture was performed and her CSF fluid was remarkable for viral meningitis. Her CSF Glucose is 33 L, her CSF Total protein is 192 H, her CSF Lymphocytes are 99, and her fluid WBC is 1957 H.. Her Brain and Sinuses CTs were unremarkable. Dr. Brown, Hospitalist, accepted the patient for admission. This plan was discussed with the patient and she was agreeable with this plan. - Diagnoses Provider Diagnoses: Viral meningitis - Provider Notifications Discussed Care Of Patient With: Jackie Brown - Hospitalist Time Discussed With Above Provider: 22:01 Instructed by Provider To: Admit As Inpatient Discharge - Sign-Out/Discharge Documenting (check all that apply): Patient Departure - Admission - Discharge Plan Condition: Stable Disposition: ADMITTED TO [facility] Referrals: Hawk Benitez MD [Primary Care Provider] - - Attestation Statements Document Initiated by Alexibe: Yes Documenting Scribe: Papi Colon Provider For Whom Kamila is Documenting (Include Credential): Robi Hogue MD Scribe Attestation: Papi Koehler, scribed for Robi Hogue MD on 01/18/19 at 2140. Status of Scribe Document: Ready
[2019-01-18] MEDS ORDERED: NS 0.9% 1000 ML** 2,000 ML IV ONE (19:38)
[2019-01-18] MEDS ORDERED: Ketorolac INJ* 30 MG/ML 1 ML VIAL IV PUSH ONE (19:38)
[2019-01-18] MEDS ORDERED: Metoclopramide IV* 5 MG/ML 2 ML VIAL IV SLOW PU ONE (19:38)
[2019-01-18] MEDS ORDERED: Acetaminophen TAB* 325 MG PO ONE (19:39)
[2019-01-18] MEDS ORDERED: diPHENhydraMINE IV* 50 MG/ML 1 ml VIAL (BENADRYL) SLOW PUSH ONE (19:39)
[2019-01-18 19:42] LABS: ALT 13 U/L (7-52); AST 16 U/L (13-39); Albumin 4.7 g/dL (3.2-5.2); Albumin/Globulin Ratio 1.9 (1-3); Alkaline Phosphatase 44 U/L (34-104); Anion Gap 7 mmol/L (2-11); BUN/Creatinine Ratio 19.1 (8-20); Blood Urea Nitrogen 13 mg/dL (6-24); CO2 Carbon Dioxide 25 mmol/L (22-32); Calcium 9.5 mg/dL (8.6-10.3); Chloride 106 mmol/L (101-111); EGFR African American 127.6 (>60); EGFR Non-African American 105.4 (>60); Globulin 2.5 g/dL (2-4); Glucose 87 mg/dL (70-100); Potassium 3.5 mmol/L (3.5-5.0); Sodium 138 mmol/L (135-145); Total Protein 7.2 g/dL (6.4-8.9); Troponin I 0.01 ng/mL (<0.04)
[2019-01-18] MEDS ORDERED: Lidocaine 2% EPI 1:200000 MPF*10-20 ML VIAL ONE (19:45)
[2019-01-18] MEDS ORDERED: Lidocaine 2% EPI 1:200000 MPF*10-20 ML VIAL INJ ONE (19:47)
[2019-01-18 20:02] LABS: C Reactive Protein 1.43 mg/L (<8.01)
[2019-01-18 20:05] LABS: Body Fluid Source Cerebral Spinal
[2019-01-18 20:07] LABS: HCG Pregnancy < 0.60 mIU/mL
[2019-01-18 20:07] LABS: Body Fluid Source Cerebral Spinal
[2019-01-18 20:22] LABS: CSF Glucose 33 mg/dL (40-70)
[2019-01-18] MEDS ORDERED: cefTRIAXone(*) 2 GM in NS 0.9% 100 ML* 100 ML IVPB ONE (21:15)
[2019-01-18] MEDS ORDERED: Vancomycin(*) 1,000 MG in NS 0.9% 250 ML* 250 ML IVPB ONE ×2 (21:16→23:47)
[2019-01-18] MEDS ORDERED: Dexamethasone IV* 4 MG/ML 1 ML (4 MG) IV SLOW PU ONE (21:20)
[2019-01-18 21:26] LABS: Body Fluid Mono 1 %
[2019-01-18 21:31] LABS: Body Fluid Mono 3 %
[2019-01-19] MEDS: ACYCLOVIR IVPB SCH ×4 (00:07→22:22)
[2019-01-19] MEDS: NS 0.9% IVPB SCH ×4 (00:07→22:22)
[2019-01-19] MEDS: Ondansetron INJ* 2 MG/ML VIAL IV PRN ×3 (02:33→16:40)
[2019-01-19] MEDS: Ketorolac INJ* 15 MG/ML 1 ML VIAL IV PUSH PRN ×3 (02:33→16:02)
[2019-01-19] MEDS: NS 0.9% 1000 ML** 1,000 ML IV SCH ×2 (02:35→13:49)
--- NOTE | 2019-01-19 02:49 | HP ---
CC: Dr. Benitez HISTORY AND PHYSICAL: DATE OF ADMISSION: 01/18/19 PRIMARY CARE PROVIDER: Dr. Benitez. CHIEF COMPLAINT: Headache and photophobia. HISTORY OF PRESENT ILLNESS: Kristie Alonso is a 23-year-old female with history IV drug use. She last used heroin over a year ago. She is now on Suboxone under the care of Dr. Benitez. The patient stated that she has had problems with frontal headache, photophobia, and back of the neck pain for the past 3 days with low-grade fevers. The patient came to the ED for evaluation. She was noted to have tach ycardia and mild leukocytosis and temperature of 100.2. A lumbar puncture was performed by the ED pr mani that showed over 900 white blood cells with lymphocytic predominance. At this point, the hina ent is going to be continued on droplet precautions and admitted for meningitis, although it appears to be likely viral due to the lymphocytic predominance on her differential in the spinal fluid. PAST MEDICAL HISTORY: 1. History of heroin use. 2. History of depression and bipolar disorder. 3. Status post tonsillectomy in 2008. CURRENT MEDICATIONS: 1. Suboxone 08/06 one film daily. 2. Ibuprofen on a p.r.n. basis. ALLERGIES: To CODEINE, SERTRALINE. FAMILY HISTORY: Reviewed and noncontributory. SOCIAL HISTORY: The patient smokes 1 pack of cigarettes a day and she started smoking when she was 1 2 years old. She used heroin IV a year ago. She denies any current drug use. She denies any alcoho l use. She lives with her boyfriend and her 2 children, one 5 and one 7-year-old. She works as a wa itress. As a surrogate she names her mom, Lillie Redmond. REVIEW OF SYSTEMS: The patient noted that both of her children had been ill with upper respiratory i llness and congestion. As mentioned above, the patient has had headache and low-grade fevers for the past 4 to 5 days. She denies any GI symptoms. Specifically, she denies any abdominal pain, nausea, vomiting, or diarrhea. All the remaining 12 systems were reviewed with the patient and were otherwise negative. PHYSICAL EXAMINATION GENERAL: The patient is a pleasant 23-year-old female, who is in no acute distress. Alert, awake, a nd oriented x3. VITAL SIGNS: Blood pressure 113/59, heart rate 94 and regular, respiratory rate 18, oxygen saturatio n 93% on room air, temperature 100.2. HEENT: Head: Atraumatic, normocephalic. Eyes: Pupils are equal and reactive to light and accommod ation. Oropharynx clear. Mucosa moist. NECK: Supple. No JVD, no bruits bilaterally. RESPIRATORY: Clear to auscultation bilaterally. CARDIOVASCULAR: Regular rate and rhythm. No murmur. ABDOMEN: Soft, nontender. Bowel sounds present in all 4 quadrants. EXTREMITIES: There is no edema. Pulses are +2 bilaterally. No clubbing or cyanosis. NEUROLOGIC: On neuro evaluation, speech is clear. Cranial nerves II through XII grossly intact. Mo tor strength is 5/5 bilaterally. The patient has mild-to- moderate neck stiffness with pain localize d in the back of the neck when she tries to put her chin to the chest, but she is able to do that. DIAGNOSTIC STUDIES/LAB DATA: Laboratory data showed white blood cell count 11.0, hemoglobin of 12.6 , hematocrit of 37, platelets of 194. Sodium of 138, potassium 3.9, chloride 106, carbon dioxide 25, BUN 13, creatinine 0.68. Liver functi on tests unremarkable. C-reactive protein of 1.4. Lactic acid is 0.5. Beta hCG below detectable. Cerebrospinal fluid showed wbc's of 1957, second bottle showed wbc's level of 941. 99% to 97% of lymp hocytes. Glucose was 33 and protein was 192. The cerebrospinal fluid was cloudy. The patient's mono screen was negative and the patient's influenza testing is pending at the time of dictation. Spinal CT and brain CT were unremarkable. ASSESSMENT AND PLAN: 1. A 23-year-old with history of IV drug use, presents with meningitis. At this point, she has lymp hocytic predominance, but also low glucose level on the cerebrospinal fluid. At this point, the diff erential still includes bacterial meningitis, but may be more related to viral. At this point, the p atient is going to be placed on broad-spectrum antibiotics with meningitis coverage including ceftria xone, vancomycin as well as acyclovir. Cerebrospinal fluid cultures are pending at the time of dicta tion. We also will obtain HSV PCR from cerebrospinal fluid as well as Lyme serology. The patient al so agreed to HIV testing. Please note that the patient is septic due to her meningitis at admission. 2. For DVT prophylaxis, the patient is at low risk and ambulation is going to be encouraged. 3. In regards to the patient's chronic pain and narcotic dependency, the patient is going to be cont inued on her Suboxone at outpatient doses. I will also place the patient on Toradol for her pain con trol for the time being. TIME SPENT: Approximately 65 minutes was spent on admission of this patient; more than half that erika e was spent [id number] with the patient during the interview and physical exam. [id number]/[facility] #: [id number]
[2019-01-19] MEDS ORDERED: Nicotine* 2MG (FRUIT FLAVOR) GUM PO PRN (06:01)
[2019-01-19] MEDS ORDERED: Buprenorp/Nalox 4-1 MG FILM 1 EACH SL FILM ONE (06:12)
[2019-01-19] MEDS ORDERED: Buprenorp/Nalox 8-2 MG FILM 1 EACH SL FILM ONE (06:12)
[2019-01-19] MEDS: Buprenorp/Nalox 8-2 MG FILM 1 EACH SL FILM SCH (06:19)
[2019-01-19] MEDS: Buprenorp/Nalox 4-1 MG FILM 1 EACH SL FILM SCH (06:19)
[2019-01-19] MEDS: Acetaminophen TAB* 325 MG PO PRN ×2 (06:37→10:32)
[2019-01-19] MEDS ORDERED: Nicotine PATCH 21 MG/24 HR* PATCH TRANSDERM SCH (08:00)
[2019-01-19] MEDS: cefTRIAXone(*) 2 GM in NS 0.9% 100 ML* 100 ML IVPB SCH ×2 (08:49→21:21)
[2019-01-19 08:52] LABS: ABS Eosinophils 0.1 10^3/ul (0-0.6); ABS Lymphocytes 1.6 10^3/ul (1.0-4.8); ABS Monocytes 0.4 10^3/ul (0-0.8); ABS Neutrophils 6.3 10^3/ul (1.5-7.7); Eosinophil % 0.7 %; Hematocrit 35 % (35-47); Hemoglobin 11.6 g/dL (12.0-16.0); Lymphocyte % 19.2 %; Mean Corpuscular HGB Conc 33 g/dL (31-36); Mean Corpuscular Hemoglobin 31 pg (27-31); Mean Corpuscular Volume 92 fL (80-97); Mean Platelet Volume 8.3 fL (7.4-10.4); Platelet Count 171 10^3/uL (150-450); Red Blood Count 3.79 10^6 /uL (3.70-4.87); Red Cell Distribution Width 13 % (10.5-15); White Blood Count 8.5 10^3/uL (3.5-10.8)
[2019-01-19 09:14] LABS: BUN/Creatinine Ratio 17.3 (8-20); Calcium 8.4 mg/dL (8.6-10.3); EGFR African American 173.9 (>60); EGFR Non-African American 143.7 (>60)
[2019-01-19] MEDS ORDERED: PROCHLORPERAZINE INJ 5 MG/ML 2 ML VIAL IV PRN (11:46)
--- NOTE | 2019-01-19 12:06 | PN ---
Subjective Date of Service: 01/19/19 Interval History: Patient continues to have nausea despite receiving zofran this morning. She did not eat breakfast this morning because of her nausea. Her pain extends from both her temples down her neck. She reports the pain is unchanged. She believes her feeling of subjective fever/chills is improving. She endorses photophobia which has not improved and thus keeps her eyes closed unless otherwise asked. She denies diarrhea, vomiting, chest pain, dyspnea. Objective Active Medications: Acetaminophen (Tylenol Tab*) 650 mg PO Q4H PRN PRN Reason: FEVER/PAIN Last Admin: 01/19/19 10:32 Dose: 650 mg Buprenorphine/Naloxone (Suboxone 4 Mg-1 Mg Sl Film) 1 each SL FILM 0900 [facility] Last Admin: 01/19/19 06:19 Dose: 1 each Buprenorphine/Naloxone (Suboxone 8 Mg-2 Mg Sl Film) 1 each SL FILM 0900 [facility] Last Admin: 01/19/19 06:19 Dose: 1 each Acyclovir Sodium 630 mg/ (Sodium Chloride) 112.6 mls @ 112.6 mls/hr IVPB Q8H [facility] Last Admin: 01/19/19 06:22 Dose: 112.6 mls/hr Ceftriaxone Sodium 2 gm/ (Sodium Chloride) 100 mls @ 200 mls/hr IVPB Q12H [facility] Last Admin: 01/19/19 08:49 Dose: 200 mls/hr Sodium Chloride (Ns 0.9% 1000 Ml) 1,000 mls @ 100 mls/hr IV PER RATE [facility] Last Admin: 01/19/19 02:35 Dose: 100 mls/hr Ketorolac Tromethamine (Toradol Inj*) 15 mg IV PUSH Q6H PRN PRN Reason: PAIN Last Admin: 01/19/19 08:49 Dose: 15 mg Non-Formulary Medication (Non Formulary Respiratory Med [Non Formulary Respiratory Med(Nf)]) 10 mg INH Q2H PRN PRN Reason: CRAVING Ondansetron HCl (Zofran Inj*) 4 mg IV Q6H PRN PRN Reason: NAUSEA Last Admin: 01/19/19 10:32 Dose: 4 mg Prochlorperazine Edisylate (Compazine Inj*) 2.5 mg IV Q6H PRN PRN Reason: NAUSEA/VOMITING Vital Signs - 8 hr 05/18/19 05/18/19 05/18/19 07:54 08:30 10:30 Temperature 99.7 F 98.4 F Pulse Rate 102 97 Respiratory 16 18 16 Rate Blood Pressure 120/54 118/60 (mmHg) O2 Sat by Pulse 95 95 99 Oximetry Oxygen Devices in Use Now: None Appearance: Thin, white, young female appears stated age, laying in hospital bed , appearing in NAD Eyes: No Scleral Icterus, PERRLA, - - EOMI Ears/Nose/Mouth/Throat: Mucous Membranes Moist Neck: Trachea Midline, - - Refuses exam of ROM of neck; no JVD Respiratory: Symmetrical Chest Expansion and Respiratory Effort, Clear to Auscultation Cardiovascular: NL Sounds; No Murmurs; No JVD, RRR Abdominal: - - normoactive BS x 4 quadrants; abd soft, nontender, nondistended; no masses Extremities: No Edema, No Clubbing, Cyanosis, - - no calf tenderness Skin: No Rash or Ulcers Neurological: Alert and Oriented x 3, NL Sensation, NL Muscle Strength and Tone Result Diagrams: 01/19/19 08:46 01/19/19 08:46 Additional Lab and Data: Lab Results 01/18/19 01/18/19 Range/Units 19:06 19:06 WBC 11.0 H (3.5-10.8) 10^3/uL RBC 4.17 (3.70-4.87) 10^6 /uL Hgb 12.6 (12.0-16.0) g/dL Hct 37 (35-47) % MCV 90 (80-97) fL MCH 30 (27-31) pg MCHC 34 (31-36) g/dL RDW 13 (10.5-15) % Plt Count 194 (150-450) 10^3/uL MPV 8.3 (7.4-10.4) fL Neut % (Auto) 57.2 % Lymph % (Auto) 35.2 % [place] % (Auto) 6.0 % Eos % (Auto) 1.1 % Baso % (Auto) 0.5 % Absolute Neuts (auto) 6.3 (1.5-7.7) 10^3/ul Absolute Lymphs (auto) 3.9 (1.0-4.8) 10^3/ul Absolute Monos (auto) 0.7 (0-0.8) 10^3/ul Absolute Eos (auto) 0.1 (0-0.6) 10^3/ul Absolute Basos (auto) 0.1 (0-0.2) 10^3/ul Absolute Nucleated RBC 0.0 10^3/ul Nucleated RBC % 0.0 INR (Anticoag Therapy) 0.97 (0.82-1.09) APTT 31.3 (26.0-36.3) seconds Microbiology and Other Data: Microbiology 01/18/19 20:01 CSF Gram Stain (Tube 3) - Final Cerebral Spinal Fluid CSF Culture - Preliminary No Growth Day 1 Assess/Plan/Problems-Billing Assessment: 23 yo white female with PMHx depression, bipolar disorder, history of IV drug use on suboxone reports to the ED c/o headache, neck pain, photophobia, and fever and found to have lymphocytic predominance on LP. Patient admitted for treatment of meningitis. - Patient Problems (1) Meningitis Code(s): G03.9 - MENINGITIS, UNSPECIFIED SNOMED Code(s): 4057979 Comment: -presents with fever, nuchal rigidity, photophobia for 3 days prior to presentation -afebrile today and leukocytosis resolved -LP lymphocytic dominant, low glucose, high protein; the lymphocyte dominance suggests viral etiology however CSF culture is pending and will continue empiric coverage -continue IV ceftriaxone and acyclovir -CSF HSV and lyme pending; HIV pending -added on CMV, ehrlichia/anaplasma, [place] tests to CSF -pain is unchanged and remains at base of skull to neck, no improvement with tylenol prn and 15 mg toradol -will increase to 30 mg toradol and schedule tylenol, will monitor BMP -patient is without neurological changes and low concern for encephalitis at this time (2) Opiate use Code(s): F11.90 - OPIOID USE, UNSPECIFIED, UNCOMPLICATED SNOMED Code(s): 838809499 Comment: -hx IV opiate use, reports last use 1 year ago -continue home suboxone (3) Bipolar disorder with depression Code(s): F31.9 - BIPOLAR DISORDER, UNSPECIFIED SNOMED Code(s): 068141243 Comment: -doesn't appear patient takes medications at home -encouraging follow up at discharge would be of benefit (4) Nicotine dependence Code(s): F17.200 - NICOTINE DEPENDENCE, UNSPECIFIED, UNCOMPLICATED SNOMED Code (s): 35773026 Comment: -pt has nicotrol inhaler from home and will be using q2hr prn cravings (5) DVT prophylaxis Code(s): Z29.9 - ENCOUNTER FOR PROPHYLACTIC MEASURES, UNSPECIFIED SNOMED Code( s): 135806557 Comment: -ambulation (6) Full code status Code(s): Z78.9 - OTHER SPECIFIED HEALTH STATUS SNOMED Code(s): 144957980
[2019-01-19] MEDS: NICOTROL INH PRN (12:48)
[2019-01-19] MEDS: Acetaminophen TAB* 325 MG PO SCH (16:41)
[2019-01-19] MEDS: Gabapentin CAP(*) 300 MG PO SCH (16:41)
[2019-01-19] MEDS ORDERED: Nicotine Patch Removal NOTE PATCH OFF SCH (21:00)
[2019-01-19] MEDS: Ketorolac INJ* 30 MG/ML 1 ML VIAL IV PUSH PRN (22:22)
[2019-01-20 00:40] LABS: Urine Appearance Cloudy; Urine Bacteria Absent (Absent); Urine Bilirubin Negative (Negative); Urine Blood 1+ (Negative); Urine Color Yellow; Urine Glucose Negative (Negative); Urine Ketones 2+ (Negative); Urine Nitrite Negative (Negative); Urine Protein Negative (Negative); Urine Red Blood Cell 3+(>10/hpf) (Absent); Urine Specific Gravity 1.026 (1.010-1.030); Urine Squamous Epithelial Cell Present (Absent); Urine Urobilinogen Negative (Negative); Urine White Blood Cell Trace(0-5/hpf) (Absent)
[2019-01-20] MEDS: NS 0.9% 1000 ML** 1,000 ML IV SCH ×2 (04:06→17:48)
[2019-01-20] MEDS: Acetaminophen TAB* 325 MG PO SCH ×6 (04:14→23:31)
[2019-01-20] MEDS: ACYCLOVIR IVPB SCH (05:19)
[2019-01-20] MEDS: NS 0.9% IVPB SCH (05:19)
[2019-01-20] MEDS: Ketorolac INJ* 30 MG/ML 1 ML VIAL IV PUSH PRN (06:49)
[2019-01-20 07:19] LABS: ABS Eosinophils 0.1 10^3/ul (0-0.6); ABS Lymphocytes 2.2 10^3/ul (1.0-4.8); ABS Monocytes 0.6 10^3/ul (0-0.8); ABS Neutrophils 2.9 10^3/ul (1.5-7.7); Eosinophil % 1.7 %; Hematocrit 33 % (35-47); Hemoglobin 11.4 g/dL (12.0-16.0); Lymphocyte % 38.3 %; Mean Corpuscular HGB Conc 34 g/dL (31-36); Mean Corpuscular Hemoglobin 31 pg (27-31); Mean Corpuscular Volume 90 fL (80-97); Mean Platelet Volume 8.8 fL (7.4-10.4); Nucleated Red Blood Cells % 0.1; Platelet Count 162 10^3/uL (150-450); Red Blood Count 3.71 10^6 /uL (3.70-4.87); Red Cell Distribution Width 13 % (10.5-15); White Blood Count 5.8 10^3/uL (3.5-10.8)
[2019-01-20 07:33] LABS: BUN/Creatinine Ratio 12.5 (8-20); Calcium 8.7 mg/dL (8.6-10.3); EGFR African American 190.7 (>60); EGFR Non-African American 157.6 (>60); Potassium 3.6 mmol/L (3.5-5.0)
[2019-01-20] MEDS: Buprenorp/Nalox 4-1 MG FILM 1 EACH SL FILM SCH (09:42)
[2019-01-20] MEDS: Buprenorp/Nalox 8-2 MG FILM 1 EACH SL FILM SCH (09:42)
[2019-01-20] MEDS: Gabapentin CAP(*) 300 MG PO SCH ×2 (09:43→20:41)
[2019-01-20] MEDS: cefTRIAXone(*) 2 GM in NS 0.9% 100 ML* 100 ML IVPB SCH ×2 (09:44→20:40)
--- NOTE | 2019-01-20 10:31 | PN ---
Subjective Date of Service: 01/20/19 Interval History: Patient is feeling much better today. She is more involved in conversation and her photophobia is resolved. Her headache pain appears more tolerated. Today, her headache is in the base of her skull but additionally is behind her eyes. She does still have some nausea but has not vomited today. She has been feeling chills. Patient denies chest pain, dyspnea, abd pain, diarrhea, subjective fever. There are reports that patient vomited yesterday evening. Objective Active Medications: Acetaminophen (Tylenol Tab*) 1,000 mg PO Q6H [facility] Last Admin: 01/20/19 05:21 Dose: 1,000 mg Buprenorphine/Naloxone (Suboxone 4 Mg-1 Mg Sl Film) 1 each SL FILM 0900 [facility] Last Admin: 01/20/19 09:42 Dose: 1 each Buprenorphine/Naloxone (Suboxone 8 Mg-2 Mg Sl Film) 1 each SL FILM 0900 [facility] Last Admin: 01/20/19 09:42 Dose: 1 each Gabapentin (Neurontin Cap(*)) 600 mg PO DAILY [facility] Last Admin: 01/20/19 09:43 Dose: 600 mg Ceftriaxone Sodium 2 gm/ (Sodium Chloride) 100 mls @ 200 mls/hr IVPB Q12H [facility] Last Admin: 01/20/19 09:44 Dose: 200 mls/hr Sodium Chloride (Ns 0.9% 1000 Ml) 1,000 mls @ 100 mls/hr IV PER RATE [facility] Last Admin: 01/20/19 04:06 Dose: 100 mls/hr Ketorolac Tromethamine (Toradol Inj*) 30 mg IV PUSH Q6H PRN PRN Reason: PAIN Last Admin: 01/20/19 06:49 Dose: 30 mg Pto: Nicotrol (Inhaler 10 Mg) 10 mg INH Q2H PRN PRN Reason: CRAVING Last Admin: 01/19/19 12:48 Dose: 10 mg Ondansetron HCl (Zofran Inj*) 4 mg IV Q6H PRN PRN Reason: NAUSEA Last Admin: 01/19/19 16:40 Dose: 4 mg Prochlorperazine Edisylate (Compazine Inj*) 2.5 mg IV Q6H PRN PRN Reason: NAUSEA/VOMITING Last Admin: 01/19/19 12:47 Dose: 2.5 mg Vital Signs - 8 hr 05/19/19 05/19/19 05/19/19 03:54 07:41 08:00 Temperature 98.1 F 98.4 F Pulse Rate 88 82 Respiratory 16 16 16 Rate Blood Pressure 123/73 119/61 (mmHg) O2 Sat by Pulse 99 97 97 Oximetry 01/20/19 09:43 Temperature Pulse Rate Respiratory 18 Rate Blood Pressure (mmHg) O2 Sat by Pulse Oximetry Oxygen Devices in Use Now: None Appearance: Young, white female, sitting on side of hospital bed, appearing comfortable and in NAD; mother at bedside Eyes: No Scleral Icterus, PERRLA Ears/Nose/Mouth/Throat: Mucous Membranes Moist Neck: NL Appearance and Movements; NL JVP, Trachea Midline Respiratory: Symmetrical Chest Expansion and Respiratory Effort, Clear to Auscultation Cardiovascular: NL Sounds; No Murmurs; No JVD, RRR Abdominal: - - Abdomen soft and nontender Extremities: No Edema, No Clubbing, Cyanosis Skin: No Rash or Ulcers Neurological: Alert and Oriented x 3, NL Sensation, NL Gait, NL Muscle Strength and Tone Result Diagrams: 01/20/19 06:36 01/20/19 06:36 Additional Lab and Data: Lab Results 01/18/19 01/18/19 Range/Units 19:06 19:06 WBC 11.0 H (3.5-10.8) 10^3/uL RBC 4.17 (3.70-4.87) 10^6 /uL Hgb 12.6 (12.0-16.0) g/dL Hct 37 (35-47) % MCV 90 (80-97) fL MCH 30 (27-31) pg MCHC 34 (31-36) g/dL RDW 13 (10.5-15) % Plt Count 194 (150-450) 10^3/uL MPV 8.3 (7.4-10.4) fL Neut % (Auto) 57.2 % Lymph % (Auto) 35.2 % [place] % (Auto) 6.0 % Eos % (Auto) 1.1 % Baso % (Auto) 0.5 % Absolute Neuts (auto) 6.3 (1.5-7.7) 10^3/ul Absolute Lymphs (auto) 3.9 (1.0-4.8) 10^3/ul Absolute Monos (auto) 0.7 (0-0.8) 10^3/ul Absolute Eos (auto) 0.1 (0-0.6) 10^3/ul Absolute Basos (auto) 0.1 (0-0.2) 10^3/ul Absolute Nucleated RBC 0.0 10^3/ul Nucleated RBC % 0.0 INR (Anticoag Therapy) 0.97 (0.82-1.09) APTT 31.3 (26.0-36.3) seconds Microbiology and Other Data: Microbiology 01/18/19 20:01 CSF Gram Stain (Tube 3) - Final Cerebral Spinal Fluid CSF Culture - Preliminary No Growth Day 1 Assess/Plan/Problems-Billing Assessment: 23 yo white female with PMHx depression, bipolar disorder, history of IV drug use on suboxone reports to the ED c/o headache, neck pain, photophobia, and fever and found to have lymphocytic predominance on LP. Patient admitted for treatment of meningitis. - Patient Problems (1) Meningitis Code(s): G03.9 - MENINGITIS, UNSPECIFIED SNOMED Code(s): 0863882 Comment: -presented with fever, nuchal rigidity, photophobia for 3 days prior to presentation -LP lymphocytic dominant, low glucose, high protein; the lymphocyte dominance suggests viral etiology however CSF culture is pending and will continue empiric coverage -CSF HSV, ehrlichia/anaplasma, [place], and lyme pending; HIV pending -ordered lyme screen per ID recommendation -ID consulted and will see patient tomorrow -continue IV ceftriaxone -d/c acyclovir per ID recommendation -continue scheduled tylenol and prn toradol 30 mg for pain as well as home gabapentin -afebrile today but with subjective chills; patient appears much more comfortable despite her stating her pain is unchanged (2) Opiate use Code(s): F11.90 - OPIOID USE, UNSPECIFIED, UNCOMPLICATED SNOMED Code(s): 022930068 Comment: -hx IV opiate use, reports last use 1 year ago -continue home suboxone (3) Bipolar disorder with depression Code(s): F31.9 - BIPOLAR DISORDER, UNSPECIFIED SNOMED Code(s): 146838214 Comment: -doesn't appear patient takes medications at home -encouraging follow up at discharge would be of benefit (4) Nicotine dependence Code(s): F17.200 - NICOTINE DEPENDENCE, UNSPECIFIED, UNCOMPLICATED SNOMED Code (s): 99508787 Comment: -pt has nicotrol inhaler from home and will be using q2hr prn cravings (5) DVT prophylaxis Code(s): Z29.9 - ENCOUNTER FOR PROPHYLACTIC MEASURES, UNSPECIFIED SNOMED Code( s): 308874307 Comment: -ambulation (6) Full code status Code(s): Z78.9 - OTHER SPECIFIED HEALTH STATUS SNOMED Code(s): 883011587
[2019-01-20] MEDS: NICOTROL INH PRN ×2 (10:38→17:45)
[2019-01-20] MEDS: Ondansetron INJ* 2 MG/ML VIAL IV PRN (17:53)
[2019-01-21] MEDS: NS 0.9% 1000 ML** 1,000 ML IV SCH (05:25)
[2019-01-21] MEDS: Acetaminophen TAB* 325 MG PO SCH ×2 (05:26→12:46)
[2019-01-21 07:11] LABS: ABS Eosinophils 0.2 10^3/ul (0-0.6); ABS Lymphocytes 3.1 10^3/ul (1.0-4.8); ABS Monocytes 0.5 10^3/ul (0-0.8); ABS Neutrophils 1.8 10^3/ul (1.5-7.7); Eosinophil % 3.1 %; Hematocrit 33 % (35-47); Hemoglobin 11.3 g/dL (12.0-16.0); Lymphocyte % 55.3 %; Mean Corpuscular HGB Conc 34 g/dL (31-36); Mean Corpuscular Hemoglobin 31 pg (27-31); Mean Corpuscular Volume 90 fL (80-97); Mean Platelet Volume 8.8 fL (7.4-10.4); Nucleated Red Blood Cells % 0.1; Platelet Count 158 10^3/uL (150-450); Red Blood Count 3.69 10^6 /uL (3.70-4.87); Red Cell Distribution Width 13 % (10.5-15); White Blood Count 5.6 10^3/uL (3.5-10.8)
[2019-01-21 07:16] LABS: Calcium 8.8 mg/dL (8.6-10.3); Potassium 3.8 mmol/L (3.5-5.0)
[2019-01-21 07:21] LABS: BUN/Creatinine Ratio 11.3 (8-20); EGFR African American 170.1 (>60); EGFR Non-African American 140.6 (>60)
[2019-01-21] MEDS: Buprenorp/Nalox 8-2 MG FILM 1 EACH SL FILM SCH (09:04)
[2019-01-21] MEDS: Buprenorp/Nalox 4-1 MG FILM 1 EACH SL FILM SCH (09:04)
[2019-01-21] MEDS: Gabapentin CAP(*) 300 MG PO SCH ×2 (09:05→12:45)
[2019-01-21] MEDS: cefTRIAXone(*) 2 GM in NS 0.9% 100 ML* 100 ML IVPB SCH (09:09)
--- NOTE | 2019-01-21 09:24 | PN ---
Subjective Date of Service: 01/21/19 Interval History: Patient expresses frustration regarding her length of stay in the hospital. She no longer has pain behind her eyes and the pain at the base of her skull is improved today. Nausea resolved. Denies vomiting. Denies chest pain, abd pain, difficulty breathing, photophobia, fever/chills. Objective Active Medications: Acetaminophen (Tylenol Tab*) 975 mg PO Q6H [facility] Last Admin: 01/21/19 05:26 Dose: 975 mg Buprenorphine/Naloxone (Suboxone 4 Mg-1 Mg Sl Film) 1 each SL FILM 0900 [facility] Last Admin: 01/21/19 09:04 Dose: 1 each Buprenorphine/Naloxone (Suboxone 8 Mg-2 Mg Sl Film) 1 each SL FILM 0900 [facility] Last Admin: 01/21/19 09:04 Dose: 1 each Gabapentin (Neurontin Cap(*)) 300 mg PO TID [facility] Last Admin: 01/21/19 09:05 Dose: 300 mg Ceftriaxone Sodium 2 gm/ (Sodium Chloride) 100 mls @ 200 mls/hr IVPB Q12H [facility] Last Admin: 01/21/19 09:09 Dose: 200 mls/hr Sodium Chloride (Ns 0.9% 1000 Ml) 1,000 mls @ 100 mls/hr IV PER RATE [facility] Last Admin: 01/21/19 05:25 Dose: 100 mls/hr Ketorolac Tromethamine (Toradol Inj*) 30 mg IV PUSH Q6H PRN PRN Reason: PAIN Last Admin: 01/20/19 06:49 Dose: 30 mg Pto: Nicotrol (Inhaler 10 Mg) 10 mg INH Q2H PRN PRN Reason: CRAVING Last Admin: 01/20/19 17:45 Dose: 10 mg Ondansetron HCl (Zofran Inj*) 4 mg IV Q6H PRN PRN Reason: NAUSEA Last Admin: 01/20/19 17:53 Dose: 4 mg Prochlorperazine Edisylate (Compazine Inj*) 2.5 mg IV Q6H PRN PRN Reason: NAUSEA/VOMITING Last Admin: 01/19/19 12:47 Dose: 2.5 mg Vital Signs - 8 hr 01/21/19 01/21/19 03:35 09:05 Temperature 98.0 F Pulse Rate 67 Respiratory 16 16 Rate Blood Pressure 112/57 (mmHg) O2 Sat by Pulse 97 Oximetry Oxygen Devices in Use Now: None Appearance: Young, white female, sitting upright in hospital bed, appearing comfortable, appearing in NAD Eyes: No Scleral Icterus, PERRLA Ears/Nose/Mouth/Throat: Mucous Membranes Moist Neck: NL Appearance and Movements; NL JVP Respiratory: Symmetrical Chest Expansion and Respiratory Effort, Clear to Auscultation Cardiovascular: NL Sounds; No Murmurs; No JVD, RRR Abdominal: - - Abdomen soft, nontender, nondistended Extremities: No Edema, No Clubbing, Cyanosis, - - Neg calf tenderness Skin: No Rash or Ulcers Neurological: Alert and Oriented x 3, NL Sensation, NL Muscle Strength and Tone Result Diagrams: 01/21/19 06:23 01/21/19 06:23 Additional Lab and Data: Lab Results 01/18/19 01/18/19 Range/Units 19:06 19:06 WBC 11.0 H (3.5-10.8) 10^3/uL RBC 4.17 (3.70-4.87) 10^6 /uL Hgb 12.6 (12.0-16.0) g/dL Hct 37 (35-47) % MCV 90 (80-97) fL MCH 30 (27-31) pg MCHC 34 (31-36) g/dL RDW 13 (10.5-15) % Plt Count 194 (150-450) 10^3/uL MPV 8.3 (7.4-10.4) fL Neut % (Auto) 57.2 % Lymph % (Auto) 35.2 % Lynn % (Auto) 6.0 % Eos % (Auto) 1.1 % Baso % (Auto) 0.5 % Absolute Neuts (auto) 6.3 (1.5-7.7) 10^3/ul Absolute Lymphs (auto) 3.9 (1.0-4.8) 10^3/ul Absolute Monos (auto) 0.7 (0-0.8) 10^3/ul Absolute Eos (auto) 0.1 (0-0.6) 10^3/ul Absolute Basos (auto) 0.1 (0-0.2) 10^3/ul Absolute Nucleated RBC 0.0 10^3/ul Nucleated RBC % 0.0 INR (Anticoag Therapy) 0.97 (0.82-1.09) APTT 31.3 (26.0-36.3) seconds Microbiology and Other Data: Microbiology 01/18/19 20:01 CSF Gram Stain (Tube 3) - Final Cerebral Spinal Fluid CSF Culture - Preliminary No Growth Day 1 Assess/Plan/Problems-Billing Assessment: 23 yo white female with PMHx depression, bipolar disorder, history of IV drug use on suboxone reports to the ED c/o headache, neck pain, photophobia, and fever and found to have lymphocytic predominance on LP. Patient admitted for treatment of meningitis. - Patient Problems (1) Meningitis Code(s): G03.9 - MENINGITIS, UNSPECIFIED SNOMED Code(s): 4629661 Comment: -presented with fever, nuchal rigidity, photophobia for 3 days prior to presentation -LP lymphocytic dominant, low glucose, high protein; the lymphocyte dominance suggests viral etiology however CSF culture is pending and will continue empiric coverage -CSF HSV, ehrlichia/anaplasma, west nile, and lyme pending; lyme screen PCR pending -ID consulted and appreciate recommendations -continue IV ceftriaxone -continue scheduled tylenol and prn toradol 30 mg for pain; gabapentin increased to 300 mg TID, normally takes 600 mg once daily at home -remains afebrile and without leukocytosis, pain improving today (2) Opiate use Code(s): F11.90 - OPIOID USE, UNSPECIFIED, UNCOMPLICATED SNOMED Code(s): 965094651 Comment: -hx IV opiate use, reports last use 1 year ago -continue home suboxone (3) Bipolar disorder with depression Code(s): F31.9 - BIPOLAR DISORDER, UNSPECIFIED SNOMED Code(s): 073864255 Comment: -doesn't appear patient takes medications at home -encouraging follow up at discharge would be of benefit (4) Nicotine dependence Code(s): F17.200 - NICOTINE DEPENDENCE, UNSPECIFIED, UNCOMPLICATED SNOMED Code (s): 06874405 Comment: -pt has nicotrol inhaler from home and will be using q2hr prn cravings (5) DVT prophylaxis Code(s): Z29.9 - ENCOUNTER FOR PROPHYLACTIC MEASURES, UNSPECIFIED SNOMED Code( s): 949822122 Comment: -ambulation (6) Full code status Code(s): Z78.9 - OTHER SPECIFIED HEALTH STATUS SNOMED Code(s): 024210199
--- NOTE | 2019-01-21 13:54 | CONS ---
CONSULTATION REPORT: DATE OF CONSULT: 01/21/19. REQUESTING PROVIDER: ARLIN Metzger. CONSULTING SERVICE: Infectious Diseases. REASON FOR CONSULT: Meningitis. IMPRESSION: 1. Meningitis with history and spinal fluid profile most consistent with aseptic meningitis. Interestingly, the white count is around 1000, the glucose is a bit low. So, bacterial meningitis, I agree, was on the differential. However, the culture is negative after 48 hours, from the spinal fluid. She was not on antibiotics as an outpatient and does not appear to have gotten antibiotics before the lumbar puncture was performed. Taken together, she has an aseptic meningitis. Differential diagnosis include a viral infection and bacterial like lyme this time of year and she does spend a lot of time outdoors with the area. 2. Chronic Suboxone therapy. 3. Bipolar disorder. RECOMMENDATIONS: The lyme serology is pending. We will have her on doxycycline 100 mg by mouth twice daily, gave her a month supply for now while awaiting the lyme serology. I discussed with her the need to return to the hospital if she has a return of severe headache, fever, photophobia and/or symptoms similar to what brought here in the first place. Otherwise, she is much improved while on ceftriaxone. HISTORY OF PRESENT ILLNESS: This is a 23-year-old woman, who had been well until when she developed some diffuse headache, which was unusual for her that was followed by malaise and fever, nausea, severe neck stiffness, and photophobia. Because of persistence of above symptoms, she come to the hospital on 01/18/19. She had a brain CT and a sinus CT. Brain was unremarkable. Sinus CT showed no paranasal sinusitis. Her white count was 11. She was started on acyclovir and ceftriaxone after a lumbar puncture was done that showed 1000 white cells, which was 97% lymphocytes and a glucose of 33. Protein was 192. Blood cultures were negative, urine culture negative, and spinal fluid was negative. Today, she has a little bit of headache that comes and goes. She has no neck stiffness, photophobia. Her energy and appetite are good. She is anxious to go home. She has not had an infection requiring hospitalization in the past and she has not had meningitis in the past. PAST MEDICAL HISTORY: 1. Heroin abuse in remission on chronic Suboxone therapy. 2. Bipolar disorder. 3. Status post tonsillectomy in 2008. MEDICATIONS: 1. Tylenol. 2. Suboxone. 3. Gabapentin. 4. Ketoralac. 5. Zofran as needed. 6. Ceftriaxone 2 g q.12 hours. ALLERGIES: CODEINE and SERTRALINE. SOCIAL HISTORY: She lives in [place] with her daughter. She does not smoke. She drinks alcohol occasionally. She works as a buffet waiter/waitress. FAMILY HISTORY: No recurrent infections. REVIEW OF SYSTEMS: All negative except as noted above to 14-point review. PHYSICAL EXAM: Vital Signs: Temperature 37, heart rate 70, respiratory rate is 12, blood pressure 120/60, oxygen saturation 99% on room air. In general, she is awake, not in distress. Neurologic: She is oriented x3. Follows commands. Cranial nerves II to XII are intact. Moves all extremities. HEENT: There is no conjunctival hemorrhage. Oropharynx without lesions. Neck is supple without mass. Heart is regular rate and rhythm without murmurs, rubs, or gallops. Lungs: Clear to auscultation bilaterally. Abdomen: Soft, nontender , nondistended. There are bowel sounds present. Skin: There is no rash or splinter hemorrhage. Musculoskeletal: There is no spine tenderness to palpation or joint synovitis. LABORATORY DATA: White blood cell count 5, hemoglobin 11, platelets 158. Creatinine 0.5. CRP on admission was 1. Beta-HCG was less than 0.6. Please see impressions and recommendations outlined above, which I have discussed with ARLIN Metzger. Thanks for asking me to see Ms. Alonso in consultation. [id number]/[facility] #: [id number] [facility]ITALS[facility]
[2019-01-21 14:40] VITALS: BP 134/58
[2019-01-21 16:02] LABS: HSV 1 PCR, CSF Negative (Negative); HSV 2 PCR, CSF Negative (Negative)
--- NOTE | 2019-01-21 22:06 | DS ---
CC: Dr. Rodriguez; Dr. Fabricio Maldonado * DISCHARGE SUMMARY: DATE OF ADMISSION: 01/18/19 DATE OF DISCHARGE: 01/21/19 ATTENDING PHYSICIAN: Papi Oliver MD * (dictated by ARLIN Metzger). PRIMARY CARE PROVIDER: Dr. Rodriguez. INFECTIOUS DISEASE PHYSICIAN: Dr. Fabricio Maldonado. PRIMARY DIAGNOSIS: Meningitis, likely viral or possibly Lyme disease related. SECONDARY DIAGNOSES: 1. History of intravenous drug abuse. 2. Bipolar disorder with depression. STUDIES: 1. The patient had brain CT on 01/18/19. Impression: Normal non-contrast head CT. 2. CT of sinuses. Impression: No CT findings to correlate the patient's symptomatology. Specifically, no paraspinal sinusitis. PERTINENT LAB DATA: Lumbar puncture on 01/18/19 reveals CSF white blood cell count of 1957 and also 941 on two different bottles with 99% lymphocytes in the former and 97% in the latter. CSF glucose 33. CSF total protein 192. HIV negative. White blood cell count on date of admission of 11, on date of discharge 5.6. DISCHARGE MEDICATIONS: Doxycycline 100 mg p.o. b.i.d. Continued home medications: 1. Suboxone 8 mg-2 mg film one film p.o. daily. 2. Ibuprofen 600 mg p.o. q.6 hours p.r.n. pain. 3. Nicotrol inhaler with 10 mg inhaled cartridge q.2 hours p.r.n. craving. 4. Gabapentin 600 mg p.o. daily. HISTORY OF PRESENT ILLNESS/HOSPITAL COURSE: The patient presented to the emergency department with photophobia, fever, and headache for 3 days on . For further details, please see H and P from 01/18/[address] Brown. The patient had a lumbar puncture performed in the emergency department with pertinent labs as previously described. She was initially empirically treated with IV ceftriaxone and acyclovir. The patient received one dose of vancomycin in the emergency department, this was not continued. The patient was also given pain control including Tylenol and Toradol. During her stay, her gabapentin was increased minimally to control her pain to 300 mg t.i.d. During her stay, her fever was resolved and her leukocytosis resolved and her pain improved and her photophobia resolved. She did not have back pain. She has pending labs for Lyme screen, Lyme CSF, CMV of the CSF, ehrlichia and anaplasma , PCR, West Nile, HSV. Her CSF culture is still preliminary but no growth for 3 days. She was seen by Dr. Maldonado who determined that given the risk of potential Lyme meningitis, she was to continue with antibiotic treatment but she was safe to return to home. On the date of discharge, the patient is feeling far improved. She is feeling comfortable. She still has mild pain at the base of her neck but is far improved. No longer has photophobia. Does not feel nauseous, has not vomited. Denies abdominal pain, chest pain, or any neuropathy. The patient's symptoms, the patient is anxious to go home and has no complaints. For the patient's previous history of IV drug abuse in remission, the patient was continued on her home Suboxone. Of note, the patient does not take any medications for her bipolar disorder. PHYSICAL EXAMINATION: General: Thin young white female lying in hospital bed, appearing in no acute distress. Eyes: PERRL. Sclerae anicteric. EOMI. ENT: Mucous membranes moist. Neck: Range of motion intact. No nuchal rigidity. Neck is supple without JVD. Respiratory: Lungs are clear to auscultation. Cardio: Regular rate and rhythm without murmurs, rubs, or gallops. Abdomen: Abdomen is soft, nontender, and nondistended. Extremities: No clubbing, cyanosis, or edema. No calf tenderness. Neuro: The patient is alert and oriented x3. No focal deficits. Able to move all extremities. Strength is 5/ 5 in all extremities. Skin: No rashes. Skin is warm, dry, and intact. DISCHARGE PLAN: DIET: The patient is to return to her regular diet. ACTIVITY: The patient can return to her regular activities. The patient is advised to return to emergency department if she develops fever or chills, if her headache begins to worsen or if she develops photophobia again , if she experiences seizure. She was advised to take doxycycline twice a day and to follow up with Dr. Maldonado's office. Dr. Maldonado's office will call her for followup appointment. At this time, Dr. Maldonado will determine if the patient should discontinue doxycycline or continue based on the Lyme result. He will also follow up the results of the pending tests as previously mentioned. The patient is to continue taking her home Suboxone. The patient was advised to follow up with Dr. Rodriguez or with mental health services regarding the fact that she is not taking any medication for her bipolar disorder. It was discussed the risk for yoel or depression when the patient is not taking mood stabilizer. The patient states that she has an appointment with her counselor on Monday and will discuss this at that time. CONDITION ON DISCHARGE: Stable. DISPOSITION: Home. TIME SPENT: Approximately 35 minutes was spent on this discharge, approximately half of this time was spent at bedside. ARLIN METZGER [id number]/[facility] #: [id number] [facility]
[2019-01-22 21:40] LABS: Anaplasma phagocytophilum Negative (Negative); Ehrlichia chaffeensis Negative (Negative); Ehrlichia ewingii/canis Negative (Negative); Ehrlichia muris eauclairensis Negative (Negative)
== END 2019-01-21 15:30 | disposition home or self-care (01) | DRG 51 ==
LOC: ED 18:29 → MED 23:51
PROVIDERS: ADMIT Internal Medicine; ATTEND Internal Medicine
PROC: 009U3ZX Drainage of Spinal Canal, Percutaneous Approach, Diagnostic (ICD-10-PCS; principal; 2019-01-18)
DX: A87.9 Viral meningitis, unspecified (principal); A69.29 Other conditions associated with Lyme disease; F31.30 Bipolar disorder, current episode depressed, mild or moderate severity, unspecified; F17.210 Nicotine dependence, cigarettes, uncomplicated; F11.11 Opioid abuse, in remission; G89.29 Other chronic pain; Z79.1 Long term (current) use of non-steroidal anti-inflammatories (NSAID); Z79.899 Other long term (current) drug therapy; Z88.5 Allergy status to narcotic agent; Z88.8 Allergy status to other drugs, medicaments and biological substances
CPT/HCPCS: 36415; 70450; 70486; 80048; 80053; 81003; 81015; 82945; 83605; 84157; 84484; 84702; 85025; 85610; 85730; 86140; 86308; 86618; 86703; 87040; 87070; 87086; 87205; 87496; 87529; 87798; 89051; 99285; A9270-GY; J0133; J0696; J0780; J1100; J1200; J1885; J2405; J2765; J3370